=== PATIENT | female | born 1955 | race Caucasian/White ===

== ENCOUNTER 2016-09-30 06:31 | Day surgery (SDC) | payer MEDICARE, BC ==
[2016-09-29 16:43] LABS: BASOPHILS 0.4 % (0.0-2.0); EOSINOPHILS 3.1 % (0-7); HEMATOCRIT 29.1 % (36.0-48.0); HEMOGLOBIN 9.2 g/dL (12-16); IMMATURE GRANULOCYTES 0.1 % (0-5); LYMPHOCYTES 25.2 % (15-50); MCH 29.5 pg (26.0-34.0); MCHC 31.6 g/dL (31.0-37.0); MCV 93.3 fL (80.0-100.0); MEAN PLATELET VOLUME 11.5 fL (7.4-10.4); MONOCYTES 7.2 % (2-11); PLATELET COUNT 210 10x3/uL (130-400); RBC 3.12 10x6/uL (4.00-5.40); RDW 14.5 % (11.5-14.5); WBC 7.2 10x3/uL (4.8-10.8)
[2016-09-29 16:58] LABS: ANION GAP 16.5 mmol/L (8-16); APTT 24.1 SECONDS (22.8-39.4); CALCIUM 7.6 mg/dL (8.5-10.1); CARBON DIOXIDE 25.4 mmol/L (21.0-32.0); CREATININE - SERUM 5.2 mg/dL (0.6-1.3); INR 1.02 (0.85-1.17); POTASSIUM - SERUM 4.9 mmol/L (3.5-5.1); PROTIME 13.2 SECONDS (11.6-15.0)
[~2016-09-30] VITALS: Ht 177.8 cm; Wt 116.6 kg
[~2016-09-30 06:31] MED LIST: ASPIRIN EC81 M1 PO; COREG6.25 MG PO; COUMADIN5 MG PO; FUROSEMIDE40 MG PO; HUMALOG 30100 UNITS/ SC; HYDRALAZINE HCL25 MG PO; ISOSORBIDE MONO30 M1 PO; KLONOPIN1 MG PO; LANTUS INSULIN10 ML SC; LYRICA75 MG PO; REQUIP0.5 MG PO
[2016-09-30 06:56] VITALS: BP 154/69; Ht 177.8 cm; Wt 116.6 kg
--- NOTE | 2016-09-30 07:13 | NUR ---
0700-CHRIS TALLEY CRNA, DR. Tamara SEVERINO NOTIFIED OF BLOOD SUGAR READING, NO NEW ORDERS RECEIVED.
--- NOTE | 2016-09-30 13:45 | NUR ---
DISCHARGE INSTRUCTIONS GIVEN, VOICED UNDERSTANDING. NO RX GIVEN. DR CEBALLOS STATES MAY USE TRAMADOL SHE HAS AT HOME. PATIENT DENIES PAIN. DISCHARGED HOME VIA WC.
--- NOTE | 2016-10-07 13:07 | OP ---
PATIENT NAME: MONE VOGEL MEDICAL RECORD: [id number] :59 LOCATION:[facility] ADMISSION DATE: SURGEON: BROWN CEBALLOS MD DATE OF OPERATION: 09/30/2016 REFERRING PHYSICIAN: Dr. Jameson Field PREOPERATIVE DIAGNOSIS: Chronic kidney disease V. 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 OPERATION PERFORMED: Exploration of left brachial artery in preparation for left forearm looped AV graft with a finding of severe disease of the left brachial artery treated by open endarterectomy the brachial artery and operation at that point terminated. SURGEON: Brown Ceballos MD ANESTHESIA: General with LMA per DIRECTOR TELECOMMUNICATIONS. PREOPERATIVE NOTE: Ms. Vogel is a 61-year-old diabetic white female patient with severe renal impairment, it is anticipated she will require dialysis soon and she was referred to me for dialysis access creation. Her preoperative mapping study indicated that she would be possibly a candidate for a left radiocephalic AV fistula, though I received information from Dr. Field that he anticipate she will be needing dialysis in a month or so and that he would prefer an AV graft implantation at least over a marginal fistula. With the patient under anesthesia, she was prepped and draped in sterile manner and the left arm examined with ultrasound after applying a proximal venous tourniquet and applying topical nitroglycerin ointment. Really, the patient's veins were much smaller than I had anticipated. I did not think she was a candidate for a distal fistula, but there was a good median cubital vein and I thought brachial artery and that she would be a candidate for a forearm loop PTFE graft. I made a transverse incision and dissected the median cubital vein and divided the perforating vein between 3-0 Vicryl ties and clips and controlled vessel with Silastic loops and I applied topical papaverine. The brachial artery was then exposed and dissected from the surrounding structures. It was controlled with Silastic loops proximally and the proximal radial artery and proximal ulnar artery were controlled individually with Silastic loops. There was a more intense than usual inflammatory reaction with adhesion to the brachial artery, which made the dissection more difficult. 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 I found that there was a collateral arterial flow to the radial artery and ulnar artery, both even with this section os the brachial artery and proximal ulnar and radial artery was occluded. I went on to complete an endarterectomy of the brachial artery over a length of about an inch involving both the proximal radial and ulnar arteries. The arteriotomy was closed directly with a running 7-0 Prolene without the use of a patch and the completion of the closure and release of the occluding loops, some flow actually was restored through the previously occluded brachial artery and into the radial artery. This was detected with handheld Doppler. The radial and ulnar arteries at the wrist were again examined and OPERATIVE REPORT [id number] MONE VOGEL found to have pulsatile Doppler flow and the hand was pink and showed no evidence of arterial insufficiency. At this point, I decided to terminate the procedure and I think that we will need to know her vascular anatomy much better in order to plan an upper extremity dialysis access creation, which will not endanger blood flow to either hand. The wound was infiltrated with 0.25% Marcaine with epinephrine and closed with interrupted inverted 3-0 Vicryl and running intracuticular 4-0 Monocryl. It was then sealed and further closed with Dermabond glue and dressed with Maxorb Ag, Tegaderm and Cavilon skin prep. She was awakened and taken to the recovery room in stable condition. Blood loss during the procedure was trivial and unreplaced and all sponges, instruments, and needles were accounted for and no drain was used. She will be discharged today and return to see me in my office next week. I will inform Dr. Field of our findings today and my recommendation that we go ahead and plan for her to begin on dialysis with a tunneled dialysis catheter and after that, she have bilateral upper extremity arteriograms to help with planning her long-term access. TRANSINT:[id number] Voice Confirmation ID: [id number] DOCUMENT ID: [id number] BROWN CEBALLOS MD at 1307 CC: JAMESON FIELD MD [id number] DICTATION DATE: 09/30/16 1150 ENVELOPE PRESS OPERATOR: 09/30/16 1302 [facility] 09/30/16 [facility] [address] [place] [address]
== END 2016-09-30 13:45 | disposition home or self-care (01) ==
LOC: D.OPS 06:31 → D.PAN 08:00 → D.OPS 13:45
PROVIDERS: Internal Medicine
DX: E11.22 Type 2 diabetes mellitus with diabetic chronic kidney disease (principal); N18.5 Chronic kidney disease, stage 5; Z99.2 Dependence on renal dialysis; I70.208 Unspecified atherosclerosis of native arteries of extremities, other extremity

== ENCOUNTER 2016-12-16 06:44 | Day surgery (SDC) | payer MEDICARE, BC ==
[~2016-12-16] VITALS: Ht 179.1 cm; Wt 67.1 kg
[2016-12-16 07:18] LABS: BASOPHILS 0.5 % (0.0-2.0); EOSINOPHILS 3.2 % (0-7); HEMATOCRIT 36.4 % (36.0-48.0); HEMOGLOBIN 11.4 g/dL (12-16); LYMPHOCYTES 12.7 % (15-50); MCH 30.2 pg (26.0-34.0); MCHC 31.3 g/dL (31.0-37.0); MCV 96.3 fL (80.0-100.0); MEAN PLATELET VOLUME 12.3 fL (7.4-10.4); MONOCYTES 9.6 % (2-11); RBC 3.78 10x6/uL (4.00-5.40); RDW 17.1 % (11.5-14.5); WBC 5.6 10x3/uL (4.8-10.8)
[2016-12-16 07:22] LABS: PLATELET COUNT 149 10x3/uL (130-400)
[2016-12-16 07:31] LABS: ANION GAP 12.2 mmol/L (8-16); CALCIUM 8.7 mg/dL (8.5-10.1); CARBON DIOXIDE 27.3 mmol/L (21.0-32.0); CREATININE - SERUM 3.5 mg/dL (0.6-1.3); POTASSIUM - SERUM 4.5 mmol/L (3.5-5.1)
[2016-12-16 07:32] LABS: APTT 24.8 SECONDS (22.8-39.4); INR 1.06 (0.85-1.17); PROTIME 13.6 SECONDS (11.6-15.0)
[2016-12-16] MEDS ORDERED: ZOCOR40 MG PO (07:47)
[2016-12-16 07:52] VITALS: BP 140/87; Ht 179.1 cm; Wt 67.1 kg
--- NOTE | 2016-12-16 08:09 | NUR ---
HAS DEXCOM METER TOOK OWN SUGAR AND TREATED WITH 3 UNITS AT 0700 AND ANESTHESIA AWARE.
[2016-12-16] MEDS ORDERED: ULTRAM50 MG PO (11:47)
--- NOTE | 2016-12-25 07:35 | OP ---
PATIENT NAME: MONE VOGEL MEDICAL RECORD: [id number] :59 LOCATION:[facility] ADMISSION DATE: SURGEON: BROWN CEBALLOS MD DATE OF OPERATION: 12/16/2016 PREOPERATIVE DIAGNOSIS: End-stage renal on hemodialysis, the right internal jugular vein tunneled dialysis catheter and recent failed left arm fistula creation attempt. POSTOPERATIVE DIAGNOSIS: End-stage renal on hemodialysis, the right internal jugular vein tunneled dialysis catheter and recent failed left arm fistula creation attempt. OPERATION PERFORMED: Creation of a right brachiocephalic Sury type AV fistula. SURGEON: Brown Ceballos MD. ANESTHESIA: Regional block plus general with an LMA per [place]ER [place]. PREOPERATIVE NOTE: Ms. Vogel is a 61-year-old white female patient with end-stage renal disease, who has had a failed attempt at creation of a left upper extremity fistula. She is on dialysis now with a catheter and is brought to the operating room now for a new fistula creation versus graft implantation in the right upper extremity. DESCRIPTION OF PROCEDURE: Under anesthesia and after a nerve block was administered and very significant vasodilatation achieved, the patient was prepped and draped in a sterile manner. A Eloise drain was applied proximally as a venous tourniquet and nitroglycerin paste was applied to the intact skin of the arm and forearm. The arm was examined with ultrasound and found to have a very suitable brachial artery and a large median cubital vein draining both to the basilic and to the cephalic systems with the predominant drainage appearing to be to the cephalic side. A transverse incision was then made and the vessels exposed and controlled with Silastic loops. The cephalic branch of the cephalic median cubital vein was divided near the venous confluence and ligated there with 2-0 Vicryl. It was flushed with heparinized saline and treated with topical papaverine and prepared for anastomosis. The brachial artery was controlled proximally and distally with Silastic loops. An arteriotomy was made approximately 6 mm in length. The vessels flushed proximally and distally with heparinized saline and an end-to-side vein to artery anastomosis performed with running 6-0 Prolene. Upon completion of the anastomosis and release of the occluding loops and clamps, excellent flow was established in the new fistula and the suture line was hemostatic. The wounds were irrigated with Ancef and gentamicin solution, irrigated and infiltrated with 0.25% Marcaine with epinephrine and the wound was closed with interrupted inverted 3-0 Vicryl and running intracuticular 4-0 Monocryl and Dermabond glue. This incision was dressed with Maxorb AG, Cavilon and Tegaderm. The patient was then awakened and taken to the recovery room. Blood loss during the procedure was trivial and unreplaced and all sponges, instruments and needles were accounted for. No drain was used. Note, Doppler examination after the anastomosis was completed and demonstrated preservation of pulsatile flow in the distal brachial artery with and without fistula occlusion. OPERATIVE REPORT [id number] MONE VOGEL The patient will be discharged to home today and will return to see me in the office next week. She is given a prescription for tramadol 50 one or 2 p.o. q.4 hours p.r.n. pain, #30. I will see her back in my office next week and change her dressing. She will continue her present dialysis via catheter. Hopefully, her new fistula will be able to be accessed in 6-8 weeks. TRANSINT:[id number] Voice Confirmation ID: [id number] DOCUMENT ID: [id number] BROWN CEBALLOS MD at 0735 CC: EBENEZER RAMIREZ MD [id number] DICTATION DATE: 12/16/16 1157 WET MILLING WHEEL OPERATOR: 12/16/16 1413 [facility] 12/16/16 [facility] [address] [place] [address]
== END 2016-12-16 14:05 | disposition home or self-care (01) ==
LOC: D.OPS 06:44
PROVIDERS: Surgery
DX: I12.0 Hypertensive chronic kidney disease with stage 5 chronic kidney disease or end stage renal disease (principal); N18.6 End stage renal disease; Z99.2 Dependence on renal dialysis

== ENCOUNTER 2017-02-17 06:38 | Day surgery (SDC) | payer MEDICARE, BC ==
[~2017-02-17] VITALS: Ht 179.1 cm; Wt 113.9 kg
[~2017-02-17 06:38] MED LIST changes: +ULTRAM50 MG PO; +ZOCOR40 MG PO
[2017-02-17 07:27] LABS: ANION GAP 16.4 mmol/L (8-16); CALCIUM 10.3 mg/dL (8.5-10.1); CREATININE - SERUM 4.5 mg/dL (0.6-1.3); POTASSIUM - SERUM 4.4 mmol/L (3.5-5.1)
[2017-02-17 07:40] LABS: INR 0.98 (0.85-1.17); PROTIME 12.8 SECONDS (11.6-15.0)
[2017-02-17 08:11] VITALS: BP 127/60; Ht 179.1 cm; Wt 113.9 kg
[2017-02-17 08:54] LABS: BASOPHILS 0.5 % (0-2); EOSINOPHILS 2.7 % (0-7); HEMATOCRIT 38.5 % (36.0-48.0); HEMOGLOBIN 12.4 g/dL (12-16); IMMATURE GRANULOCYTES 0.1 % (0-5); LYMPHOCYTES 18.9 % (15-50); MCH 31.9 pg (26.0-34.0); MCHC 32.2 g/dL (31.0-37.0); MEAN PLATELET VOLUME 12.3 fL (7.4-10.4); MONOCYTES 8.5 % (2-11); NEUTROPHILS 69.3 % (40-80); PLATELET COUNT 147 10x3/uL (130-400); RBC 3.89 10x6/uL (4.00-5.40); RDW 17.5 % (11.5-14.5); WBC 7.8 10x3/uL (4.8-10.8)
--- NOTE | 2017-02-17 11:20 | NUR ---
ARMS PADDED AND TUCKED FOR PD CATH, THEN LEFT ARM PLACED ON ARMBOARD FOR AV FISTULA GRAFT, ANDRÉS.
[2017-02-17] MEDS ORDERED: HYDROCODON-ACE1 EAC7 PO (14:08)
--- NOTE | 2017-02-17 15:26 | NUR ---
1526--PT RATES PAIN 12/26, NORCO 5/325MG GIVEN PO. HGRAVES RN
--- NOTE | 2017-02-17 15:52 | NUR ---
1600--DISCHARGE INSTRUCTIONS GIVEN, PT VERBALIZES UNDERSTANDING. PT OFF UNIT VIA SCARLET. JARROD DELGADILLO
--- NOTE | 2017-02-17 15:52 | NUR ---
1550--PT STATES PAIN IS BETTER, RATES PAIN 3-10. IV DC'D, PT UP TO DRESS. HGRAYAMILETH RN
--- NOTE | 2017-02-18 10:42 | OP ---
PATIENT NAME: MONE HUSSEIN MEDICAL RECORD: [id number] :59 LOCATION:D.[facility] ADMISSION DATE: SURGEON: BROWN CEBALLOS MD DATE OF OPERATION: 02/17/2017 DATE OF SURGERY: 02/17/2017 REFERRING PHYSICIAN: Dr. Jameson Field. PREOPERATIVE DIAGNOSIS: End-stage renal disease, independence on tunneled central venous catheter for dialysis access and failed attempts at prior AV fistula creation. PREOPERATIVE NOTE: This very nice but super obese 61-year-old white female patient with brittle diabetes has end-stage renal disease and is presently dialyzing with a catheter. She has had an attempt at creation of an AV fistula in the left arm, which led to the discovery of a chronic occlusion of the brachial artery and a brachial artery saphenous vein graft to restore continuity of the artery and no fistula was created at that time, later an attempted brachiobasilic fistula on the right failed. She is brought to the operating room at this time with plans to do a laparoscopy to implant a peritoneal dialysis catheter and also to implant a PTFE AV graft in the right arm. PROCEDURE IN DETAIL: With the patient under general endotracheal anesthesia in supine position, the abdomen was prepped and draped in sterile manner. A site for catheter exit had been marked by peritoneal dialysis nurses that was high in the left upper quadrant. The abdomen was accessed with a XL Optiview port with a 5-mm 0-degree scope in place through a small incision in the right upper quadrant. Pneumoperitoneum was established and a 30-degree angle scope was used thereafter. An incision was made in the left upper quadrant and carried down to the rectus sheath. A needle was then inserted through the rectus sheath into the abdominal cavity probably with laparoscopic visualization, a guidewire was passed and then a dilator peel-away introducer. After that, a left-sided Adams neck dual cuff coil peritoneal dialysis catheter was inserted. The coil catheter does not reach all the way down into the pelvis, but seemed to be in good position. There was really no omentum in the lower abdomen, just multiple loops of small bowel and mesentery with which the catheter might become clogged. The catheter was placed in a subcutaneous tunnel to an exit site in the left upper quadrant. The catheter was flushed with saline and noted to flush easily. It was then heparin locked and clamped and capped. The abdomen was examined again to rule out any perforations or bleeding or other complications, none found. The laparoscope and the 5-mm port in the right upper quadrant were removed. The transverse incision in the left upper quadrant was irrigated and infiltrated with 0.25% Marcaine, closed with interrupted inverted 3-0 Vicryl and running intracuticular 4-0 Monocryl and then sealed with Dermabond glue. The laparoscopic port site in the right upper quadrant was sutured with 1 interrupted inverted subcuticular 3-0 Vicryl suture. I then sealed with Dermabond glue. These sites were then dressed with Maxorb Ag, Cavilon and Tegaderm skin prep. The peritoneal dialysis catheter was fixed to the skin at the exit site with two 1/4 inch Steri-Strips after Cavilon skin prep and then applied to the surrounding skin. A Biopatch was then applied and over that, a further sterile dry dressing. The patient was then completely reprepped and draped for the right arm AV graft procedure. OPERATIVE REPORT [id number] MONE HUSSEIN The patient was examined with ultrasound and I confirmed that other than the proximal basilic vein and the brachial artery and the distal humeral area, there are really no other suitable sites for graft. The patient's brachiocephalic AV fistula was completely thrombosed and she had extensive ecchymoses from attempts on Monday of this week to reopen it. The artery was exposed through an incision above the antecubital space and the proximal basilic vein was exposed through a longitudinal incision in the upper arm just lateral to the axilla. The basilic vein was exposed and controlled with Silastic loops. The brachial artery was also controlled with Silastic loops. I chose a 4 mm to 7 mm taper Bard Propaten PTFE graft, beveled the 4 mm end and then opened the brachial artery and flushed it proximally and distally with heparinized saline and then the anastomosis was performed with running 6-0 Prolene. When complete, the anastomosis was treated with Evicel and also some fibrillar hemostatic material was utilized and with reopening of the artery, the suture line was hemostatic. The graft and artery were again then flushed with heparinized saline and the graft clamped. A subcutaneous tunnel was then created with the Impra tunneler between the axilla and the antecubital or distal arm incision. This tunnel was placed as close to the undersurface of the skin as possible. The graft was then pulled through the tunnel, shortened, beveled and anastomosed end-to-side to the proximal basilic vein with continuous running 6-0 Prolene. Again, the anastomosis was treated with Evicel prior to loosening of clamps and loops. Excellent flow was established in the new graft and there was preservation of good pulsatile flow in the radial and ulnar arteries at the wrist. The wounds were infiltrated and irrigated with 0.25% Marcaine with epinephrine and closed with interrupted inverted 3-0 Vicryl and running intracuticular 4-0 Monocryl and Dermabond glue. They were dressed with Maxorb Ag, Tegaderm and Cavilon skin prep. The patient was then awakened and extubated and taken to the recovery room. Blood loss during the operation was almost none, certainly none was replaced. All sponges, instruments and needles were accounted for. No drain was used and no surgical specimen was submitted for histopathology. I expect the patient will go home today. She is to follow up with me in my office next week and she will need an appointment with peritoneal dialysis nurses at [facility] or the [facility] unit for her initial catheter flush. I anticipate that her new AV graft could be accessed in about 2 weeks and I had recommended that initially it may be accessed with a smaller gauge, 17-gauge needles and then when that graft has demonstrated itself to be a reliable access, her tunneled dialysis catheter should be removed. The abdomen will need a little longer to heal. I would not like her to begin full volume exchanges of peritoneal dialysis before at least 2 weeks, probably 3-4. TRANSINT:[id number] Voice Confirmation ID: [id number] DOCUMENT ID: [id number] BROWN CEBALLOS MD at 1042 CC: JAMESON FIELD MD [id number] DICTATION DATE: 02/17/17 1427 CASTING OPERATOR: 02/17/173 [facility] 02/17/17 [place] [id number]
== END 2017-02-17 16:00 | disposition home or self-care (01) ==
LOC: D.OPS 06:38
PROVIDERS: Surgery
DX: E10.22 Type 1 diabetes mellitus with diabetic chronic kidney disease (principal); N18.6 End stage renal disease; Z99.2 Dependence on renal dialysis; I77.9 Disorder of arteries and arterioles, unspecified; E66.01 Morbid (severe) obesity due to excess calories; Z68.35 Body mass index [BMI] 35.0-35.9, adult

== ENCOUNTER 2020-03-19 20:23 | Inpatient (IN) | payer MEDICARE, BC ==
[~2020-03-19] VITALS: Ht 179.1 cm; Wt 128.4 kg
--- NOTE | ~2020-03-19 | RHP ---
PATIENT: MONE HUSSEIN MEDICAL RECORD: [id number] ACCOUNT: [id number] LOCATION:[facility]RIC[facility] [id number] : 59 ADMISSION DATE: 03/19/20 REHABILITATION HISTORY AND PHYSICAL EXAMINATION POST ADMISSION PHYSICIAN EXAMINATION ADMITTING DIAGNOSIS: Uremic myopathy. HISTORY OF PRESENT ILLNESS: The patient is a 64-year-old female that presented to the [facility] hospital with a week long history of edema and redness to her lower extremity. She was seen in outpatient clinic prior to this and started on doxycycline. Her cellulitis and edema worsened. She had weeping from this thing. She was admitted to the [facility] hospital for cellulitis of the right lower extremity with anasarca and uncontrolled diabetes. She has got end-stage renal disease, on peritoneal dialysis. She was placed on IV antibiotics. Her white count did trend down. Her Doppler showed no evidence of acute DVT. The patient did have an arteriogram, which showed a hematoma in the popliteal fossa and it was concerned for infection. The hematoma was evacuated at bedside by general surgeon. The patient was seen and followed by pulmonary. She has got vasovagal syncope after getting up off the commode. She actually had a code blue called. She remained hypotensive after this. She had ABGs. She showed metabolic and respiratory acidosis and was transferred onto the ICU for shock. She has been followed by nephrology. She has had PD fluid concentration change during her stay. She is seen by infectious disease for worsening cellulitis. The patient has been followed by Dr. Owens during her acute stay for wound care. She has had prolonged hospital stay. She had been seeing physical and occupational therapy throughout her stay. She needs to be monitored closely for peritoneal dialysis wound healing due to cellulitis. Monitor intake and output. She is on antibiotics for cellulitis, medication adjustments, pain control, electrolyte protocol, impaired mobility, decreased strength, gait disturbance, limited safety awareness. She is a medical complexity for risk for falls. She has unsteady gait and balance. She has got inability to care for herself and self-care deficits. These are all barriers to her discharge home. Lives at home with her spouse and was independent with ADLs and mobility using a quad cane. She is currently set up for max assist for ADLs and mod to max assist for mobility. She would like to return home as close to her prior level of functioning as possible. COMORBIDITIES: Include cellulitis, she has got Serratia marcescens of her right lower extremity. She has got a right popliteal fossa hematoma, neuropathy, hemorrhagic shock, low albumin, diabetes that is uncontrolled, end-stage renal disease, morbid obesity, hyponatremia, neuropathy. She has got a history of physical deconditioning, venous insufficiency and atrial fib. PAST MEDICAL HISTORY: Significant for anxiety, arterial occlusion, atrial fib and flutter, chronic renal insufficiency, depression, diabetes, hypertension, reflux, back problems, restless legs. PAST SURGICAL HISTORY: Includes a cardioversion. She has had ankle fracture, appendectomy, cholecystectomy, hysterectomy, I&D. She has had spinal surgery. She has had a CV cath in the past, hemodialysis. She has got hardware removal per Dr. Eli. ALLERGIES: LEVAQUIN, PRILOSEC, SULFA AND TERRAMYCIN. HISTORY AND PHYSICAL [id number] MONE HUSSEIN CURRENT MEDICATIONS: Include calcium carbonate 750 mg t.i.d. with meals, nystatin t.i.d., Calmoseptine to apply b.i.d. p.r.n., Protonix 40 mg b.i.d. She is on Humulin R 15 units twice daily. She is on peritoneal dialysis. She is on regular insulin 30 units IV every 12 hours. She is on Klonopin 1 mg at bedtime, Lyrica 75 mg at bedtime, Requip 0.5 mg at bedtime, tramadol p.r.n. pain. She is on glucose replacement protocol. She is on Lantus 25 units at bedtime. She is on Humalog sliding scale. She is on Zofran 4 mg every 6 hours p.r.n. and Eliquis 2.5 mg b.i.d. I also restarted some of her home meds, which include carvedilol, hydralazine and isosorbide. HABITS: No alcohol or tobacco use. FAMILY HISTORY: Noncontributory. SOCIAL HISTORY: The patient hopes to return back home and get back to her prior level of functioning. REVIEW OF SYSTEMS: GENERAL: Does complain of weakness and fatigue. HEENT: Denies cold, cough, or congestion. CARDIOVASCULAR: Denies any chest pain. PHYSICAL EXAMINATION: VITAL SIGNS: Stable, afebrile. GENERAL: A somewhat obese female in no acute distress upon exam. HEENT: Normocephalic and atraumatic. Mucosa moist. NECK: Supple. No lymphadenopathy. LUNGS: Clear in upper patel. HEART: Irregular rate and rhythm. ABDOMEN: Soft, benign, and nondistended. Positive bowel sounds times 4. EXTREMITIES: Does show some edema and also cellulitis. NEUROLOGIC: She does have proximal muscle weakness. LABORATORY DATA: White count is 11,000, H&H of 9.7 and 31.4 and platelet count is 205. Sodium 129, potassium 3.7, BUN and creatinine of 35 and 11, and blood sugar is noted to be 102. 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 The patient has potential to make improvement. We instituted the following multidisciplinary therapies including to, but not limited to physical, occupational, respiratory, speech, nutritional services, prosthetics and orthotics. Given her complex medical condition and risk for further medical complications, rehabilitative services cannot be provided at a low level of care such as halfway facility. PLAN: 1. Admit to [facility] for intensive inpatient therapy to include the following disciplines; A. Physical therapy to improve gait, all transfer skills and bed mobility to a modified independent level. B. Occupational therapy to improve activities of daily living. C. Case management to help with discharge planning and placement options. D. Nutrition to assist with nutritional needs. E. Rehabilitation nursing to assist in monitoring the patient's underlying HISTORY AND PHYSICAL [id number] KEENANMONE YAIMA GROVES medical conditions and to assist with any type of bowel or bladder management. 2. The patient's current medication and medical care will be continued. 3. The patient will be placed on standard fall precautions. 4. The patient's estimated length of stay is approximately 7-10 days. 5. We will discuss this patient during care team staff meeting this week. I am going to adjust her insulin dosage during her stay and appreciate renal seeing her with this during her stay and taking care of her peritoneal dialysis. TRANSINT:[id number] Voice Confirmation ID: [id number] DOCUMENT ID: [id number] SANG notes whether there has been none or any medical/functional change since admission: - No change since preadmission screen. SANG attests patient continues to be appropriate for IRF: - Continues to be appropriate. DEE DEE LEMONS MD CC: [id number] DICTATION DATE: 03/20/20 0950 WOOD TYPE FINISHER: 03/20/20 1126 ADM IN [place] [id number] [place] [id number]
[~2020-03-19 20:23] MED LIST changes: +HYDROCODON-ACE1 EAC7 PO
[2020-03-19 21:45] VITALS: BP 115/52
[2020-03-20 01:11] VITALS: BP 115/52; BMI 39.4
--- NOTE | 2020-03-20 02:59 | NUR ---
PT ARRIVED AT [address] [facility], TRANSFERED FROM STRETCHER TO BED BY 2 EMS AND 3 NURSES,ACCLIMATED TO ROOM AND STAFF, TV/CALL LIGHT, ROOM, PT IS ANURIC, EXTREME EXCORIATION ON BUTTOCKS/COCCYX WET/RED/PAINFUL, UNSTAGABLE WOUND RIGHT POSTERIOR CALF 7.5 X 2 X 1CM, RIGHT HEEL RED/BLANCHABLE, LEFT HEEL RED/BOGGY/FLUID FILLED. LEFT UPPER ABDOMEN PERITONEAL ACCESS
--- NOTE | 2020-03-20 03:33 | NUR ---
PT DIALYSIS DRAINED 1999, TOOK ON 1999 FINISHED AT 0115
[2020-03-20 05:29] LABS: BASOPHILS 0.2 % (0-2); EOSINOPHILS 4.5 % (0-7); HEMATOCRIT 31.4 % (36.0-48.0); HEMOGLOBIN 9.7 g/dL (12-16); IMMATURE GRANULOCYTES 0.5 % (0-5); MCH 30.3 pg (26.0-34.0); MCHC 30.9 g/dL (31.0-37.0); MCV 98.1 fL (80.0-100.0); MEAN PLATELET VOLUME 11.8 fL (7.4-10.4); NEUTROPHILS 71.8 % (40-80); RDW 16.8 % (11.5-14.5)
[2020-03-20 05:41] LABS: PLATELET COUNT 205 10x3/uL (130-400)
[2020-03-20 05:43] LABS: ANION GAP 8.3 mmol/L (8-16); CALCIUM 8.2 mg/dL (8.5-10.1); CARBON DIOXIDE 29.4 mmol/L (21.0-32.0); POTASSIUM - SERUM 3.7 mmol/L (3.5-5.1)
--- NOTE | 2020-03-20 08:00 | NUR ---
UP IN BED EATING BREAKFAST, DENIES ANY NEEDS AT THIS TIME, C/L AND FLUIDS IN REACH.
[2020-03-20 08:15] VITALS: BP 121/43
[2020-03-20] MEDS ORDERED: DARBEPOETIN ALFA SQ (08:37)
[2020-03-20] MEDS ORDERED: ROCALTROL0.5 MCG PO (08:38)
[2020-03-20] MEDS ORDERED: BAYER CHEWABLE81 MG PO (08:39)
--- NOTE | 2020-03-20 12:00 | NUR ---
SITTING UP ON RIGHT SIDE EATING LUNCH, DENIES ANY NEEDS AT THIS TIME, C/L AND FLUIDS IN REACH.
[2020-03-20 12:23] VITALS: BP 116/66
[2020-03-20 12:24] VITALS: Ht 179.1 cm; Wt 128.4 kg
[2020-03-20 14:40] VITALS: BP 98/48
--- NOTE | 2020-03-20 16:10 | NUR ---
RESTING IN BED WITH EYES CLOSED, NO S/S OF DISTRESS NOTED, RESP EVEN AND UNLABORED, C/L AND FLUIDS IN REACH.
--- NOTE | 2020-03-20 17:32 | NUR ---
PATIENT DIALYSIS DRAINED OUT 1700 AND TOOK IN 1999 PD.
[2020-03-20 18:09] VITALS: BP 89/47
--- NOTE | 2020-03-20 20:38 | NUR ---
TURNED PT TO RT SIDE, FLUIDS/CALL LIGHT WITHIN REACH, NO NEEDS NOTED
[2020-03-21 00:14] VITALS: BP 93/29
[2020-03-21 06:13] VITALS: BP 113/48
--- NOTE | 2020-03-21 08:00 | NUR ---
SITTING UP IN BED EATING BREAKFAST, DENIES ANY NEEDS AT THIS TIME, C/L AND FLUIDS IN REACH.
--- NOTE | 2020-03-21 10:07 | NUR ---
ASSESSMENT COMPLETE, DENIES ANY OTHER NEEDS AT THIS TIME, C/L AND FLUIDS IN REACH.
--- NOTE | 2020-03-21 12:00 | NUR ---
SITTING UP IN BED EATING LUNCH, DENIES ANY NEEDS AT THIS TIME, C/L AND FLUIDS IN REACH.
[2020-03-21 12:26] VITALS: BP 84/33
[2020-03-21 13:27] VITALS: BP 104/41
--- NOTE | 2020-03-21 16:01 | NUR ---
RESTING IN BED WITH EYES CLOSED, NO S/S OF DISTRESS NOTED, RESP EVEN AND UNLABORED, O2 RUNNING AT 2LPM, C/L AND FLUIDS IN REACH.
[2020-03-21 18:22] VITALS: BP 83/41
--- NOTE | 2020-03-21 18:50 | NUR ---
RECEIVED PT LYING IN BED AWAKE. ALERT AND ORIENTED X4. CURRENTLY RECEIVING PD. NO SIGNS OF ACUTE DISTRESS NOTED. RLE DRESSING INTACT. LEFT HEEL FLUID FILLED BLISTER NOTED. RIGHT HEEL RED AND BOGGY. HEELS BRIDGED. BUTTOCKS EXCORIATED CALMOSEPTINE UTILIZED. MARGE AREA REDDENED YEAST CALMOSEPTINE AND NYSTATIN OITMENT UTILIIZED. DENIES ANY NEEDS OR PAIN. CALL LIGHT AND WATER WITHIN REACH. FALL PRECAUTIONS IN PLACE. CPOC
[2020-03-21 20:27] VITALS: BP 92/57
[2020-03-22 00:10] VITALS: BP 108/40
--- NOTE | 2020-03-22 00:20 | NUR ---
PD FLUID DRAIN OUT STARTED
--- NOTE | 2020-03-22 01:00 | NUR ---
2900ML PD FLUID OUT, STARTED INFUSING PD FLUID. PT TOLERATING WELL
--- NOTE | 2020-03-22 01:15 | NUR ---
PD COMPLETE. POSITIONED PT TO LEFT SIDE PROPPED WITH PILLOWS BEHIND BACK, BRIDGED HEELS. PT DENIES ANY OTHER NEEDS. CALL LIGHT WITHIN REACH. FALL PRECAUTIONS IN PLACE. CPOC
--- NOTE | 2020-03-22 03:05 | NUR ---
PT LYING IN BED ON LEFT SIDE EYES CLOSED RESTING COMFORTABLY. RR EVEN AND UNLABORED. CALL LIGHT WITHIN REACH. FALL PRECAUTIONS IN PLACE. CPOC
[2020-03-22 05:26] LABS: BASOPHILS 0.4 % (0-2); EOSINOPHILS 5.9 % (0-7); HEMATOCRIT 31.1 % (36.0-48.0); HEMOGLOBIN 9.5 g/dL (12-16); IMMATURE GRANULOCYTES 0.9 % (0-5); LYMPHOCYTES 14.7 % (15-50); MCH 29.8 pg (26.0-34.0); MCHC 30.5 g/dL (31.0-37.0); MCV 97.5 fL (80.0-100.0); MEAN PLATELET VOLUME 12.4 fL (7.4-10.4); MONOCYTES 13.9 % (2-11); NEUTROPHILS 64.2 % (40-80); PLATELET COUNT 213 10x3/uL (130-400); RBC 3.19 10x6/uL (4.00-5.40); RDW 17.1 % (11.5-14.5)
[2020-03-22 05:27] LABS: WBC 7.6 10x3/uL (4.8-10.8)
[2020-03-22 05:55] LABS: ERYTHROCYTE SEDIMENTATION RATE 14 mm/hr (0-30)
--- NOTE | 2020-03-22 05:55 | NUR ---
STARTED PD FLUID DRAIN
[2020-03-22 06:01] VITALS: BP 100/45
[2020-03-22 06:04] LABS: ALBUMIN 1.2 g/dL (3.4-5.0); ANION GAP 10.6 mmol/L (8-16); BILIRUBIN - TOTAL 0.35 mg/dL (0.2-1.3); C-REACTIVE PROTEIN 15.4 mg/dL (0.0-0.9); CALCIUM 8.1 mg/dL (8.5-10.1); CARBON DIOXIDE 27.5 mmol/L (21.0-32.0); CREATININE - SERUM 10.5 mg/dL (0.6-1.3); PHOSPHOROUS 4.3 mg/dL (2.5-4.9); POTASSIUM - SERUM 4.1 mmol/L (3.5-5.1); PROTEIN - SERUM 4.5 g/dL (6.4-8.2)
--- NOTE | 2020-03-22 06:25 | NUR ---
PD DRAIN CLAMPED, PD SOLUTION 1.5 STARTED
--- NOTE | 2020-03-22 06:44 | NUR ---
PD FININSHED. POSITIONED PT TO RIGHT SIDE. NO SIGNS OF ACUTE DISTRESS NOTED. VS STABLE. CALL LIGHT WITHIN REACH. FALL PRECAUTIONS IN PLACE
--- NOTE | 2020-03-22 07:24 | NUR ---
RESTING IN BED WITH EYES CLOSED, NO S/S OF DISTRESS NOTED, C/L AND FLUIDS IN REACH, RESP EVEN AND UNLABORED, O2 RUNNING AT 2LPM.
[2020-03-22 11:24] VITALS: BP 98/37
--- NOTE | 2020-03-22 12:33 | NUR ---
SITTING UP IN BED EATING LUNCH, DENEIS ANY NEEDS AT THIS TIME, C/L AND FLUIDS IN REACH.
--- NOTE | 2020-03-22 15:57 | NUR ---
RESTING IN BED WITH EYES CLOSED, NO S/S OF DISTRESS NOTED, RESP EVEN AND UNLABORED, C/L AND FLUIDS IN REACH.
[2020-03-22 18:03] VITALS: BP 98/37
--- NOTE | 2020-03-22 19:40 | NUR ---
RECEIVED PT LYING IN BED ON RIGHT SIDE EYES CLOSED RESTING. RR EVEN AND UNLABORED. EASILY AROUSED WITH VERBAL STIMULI. DENIES ANY NEEDS. NO SIGNS OF ACUTE DISTRESS NOTED. CONTINUES ON 2L VIA NC. ENTIRE BUTTOCKS EXCORIATED APPLIED CALMOSEPTINE OVER ENTIRE BUTTOCKS. REPOSITIONED TO LEFT SIDE. CALL LIGHT WITHIN REACH. FALL PRECAUTIONS IN PLACE. CPOC
[2020-03-23 00:15] VITALS: BP 96/30
--- NOTE | 2020-03-23 00:20 | NUR ---
PT LYING IN BED ON LEFT SIDE. PT HYPOTENSIVE 96/30 ELEVATED LEGS PT IS ASYMPTOMATIC. DENIES ANY NEEDS. PD DRAIN STARTED. CALL LIGHT AND WATER WITHIN REACH. FALL PRECAUTIONS IN PLACE. CPOC
--- NOTE | 2020-03-23 01:00 | NUR ---
PT COMPLETED. PT TOLERATED WELL. REPOSITIONED TO RIGHT SIDE. DENIES ANY OTHER NEEDS OR PAIN. WILL CONTINUE TO MONITOR
--- NOTE | 2020-03-23 02:27 | NUR ---
PT LYING IN BED EYES CLOSED RESTING. RR EVEN AND UNLABORED. CALL LIGHT WITHIN REACH. FALL PRECAUTIONS IN PLACE. CPOC
--- NOTE | 2020-03-23 04:30 | NUR ---
PT LYING IN BED ON RIGHT SIDE EYES CLOSED RESTING. RR EVEN AND UNLABORED. CALL LIGHT WITHIN REACH. FALL PRECAUTIONS IN PLACE. CPOC
[2020-03-23 06:14] VITALS: BP 79/44
[2020-03-23 07:31] LABS: BASOPHILS 0.5 % (0-2); EOSINOPHILS 6.7 % (0-7); HEMATOCRIT 31.6 % (36.0-48.0); HEMOGLOBIN 9.6 g/dL (12-16); IMMATURE GRANULOCYTES 0.8 % (0-5); LYMPHOCYTES 14.9 % (15-50); MCH 29.8 pg (26.0-34.0); MCHC 30.4 g/dL (31.0-37.0); MCV 98.1 fL (80.0-100.0); MEAN PLATELET VOLUME 11.8 fL (7.4-10.4); MONOCYTES 15.7 % (2-11); NEUTROPHILS 61.4 % (40-80); PLATELET COUNT 217 10x3/uL (130-400); RBC 3.22 10x6/uL (4.00-5.40); RDW 17.1 % (11.5-14.5); WBC 7.6 10x3/uL (4.8-10.8)
--- NOTE | 2020-03-23 08:00 | NUR ---
PT RESTING IN BED WITH EYES OPEN CALL LIGHT IN REACH WILL MONITER
[2020-03-23 08:03] LABS: ANION GAP 12.2 mmol/L (8-16); CALCIUM 7.7 mg/dL (8.5-10.1); CARBON DIOXIDE 28.7 mmol/L (21.0-32.0); CREATININE - SERUM 10.4 mg/dL (0.6-1.3); PHOSPHOROUS 4.4 mg/dL (2.5-4.9); POTASSIUM - SERUM 3.9 mmol/L (3.5-5.1); THYROID STIMULATING HORMONE 3.29 uIU/mL (0.36-3.74)
[2020-03-23 12:01] VITALS: BP 100/49
--- NOTE | 2020-03-23 12:11 | NUR ---
DUE TO CHANGE IN MEDICAL CONDTIONS PATIENT DISCHARGED FROM REHAB AND ADMITTED TO ACUTE FLOOR.
--- NOTE | 2020-03-23 12:52 | NUR ---
Nutrition Follow-up: Patient is ESRD on PD daily. Per nephrology she is volume overloaded with low ALB and plans to have HD cath placed tomorrow by surgery. Diet: Renal ADA PO intake: ~64% average x last 9 meals; she likes and will drink Nepro with meals. She gave food preferences. Last BM: 03/21/20. WT: 282.4# (03/21/20); Admit WT: 278# Meds noted: Lasix, lantus, SSI, miralax Labs noted: Na 129(L), BUN 34(H), Cr 10.4(H), GFR 4(L), Glu 131(H) Skin: unstageable PU to R calf Recommend continue current diet. Will update food preferences. Will add Nepro with meals. RD following.
[2020-03-23] MEDS ORDERED: LANTUS INS100 UNITS/ SC (13:43)
[2020-03-23] MEDS ORDERED: PROTONIX40 MG PO (13:46)
[2020-03-23] MEDS ORDERED: TUMS X-STR300 MG PO (13:46)
[2020-03-23] MEDS ORDERED: NYSTATIN OINTME15 GM TOPICAL (13:46)
[2020-03-23] MEDS ORDERED: HEPARIN SO1000 UNIT/ IV (13:48)
[2020-03-23] MEDS ORDERED: CALMOSEPTINE OI71 GM TOPICAL (13:49)
[2020-03-23] MEDS ORDERED: LASIX40 MG PO ×2 (13:49→18:12)
[2020-03-23] MEDS ORDERED: ZOFRAN4 MG PO (13:50)
--- NOTE | 2020-03-23 15:29 | NUR ---
PT DISCHARGED TO ACUTE CARE VIA BED REPORT CALLED TO JANETH SNOW. PT TOLERATED WELL
[2020-03-23] MEDS ORDERED: [UNRECOGNIZED DRUG - OTHER] PD (18:09)
[2020-03-23] MEDS ORDERED: [UNRECOGNIZED DRUG - OTHER] PD (18:10)
[2020-03-23] MEDS ORDERED: ELIQUIS2.5 MG PO (18:10)
[2020-03-23] MEDS ORDERED: MIRALAX17 GM PO (18:13)
== END 2020-03-23 15:36 | disposition short-term general hospital (02) | DRG 91 ==
LOC: D.REHAB 20:23
PROVIDERS: Internal Medicine; Internal Medicine Nephrology; ADMIT Emergency Medicine; ATTEND Emergency Medicine
DX: G72.89 Other specified myopathies (principal); N18.6 End stage renal disease; R57.8 Other shock; L03.115 Cellulitis of right lower limb; E87.1 Hypo-osmolality and hyponatremia; I12.0 Hypertensive chronic kidney disease with stage 5 chronic kidney disease or end stage renal disease; R26.9 Unspecified abnormalities of gait and mobility; I48.91 Unspecified atrial fibrillation; E66.01 Morbid (severe) obesity due to excess calories; E11.22 Type 2 diabetes mellitus with diabetic chronic kidney disease; E11.40 Type 2 diabetes mellitus with diabetic neuropathy, unspecified; K21.9 Gastro-esophageal reflux disease without esophagitis; Z68.39 Body mass index [BMI] 39.0-39.9, adult; K29.70 Gastritis, unspecified, without bleeding

== ENCOUNTER 2020-03-23 15:40 | Inpatient (IN) | payer MEDICARE, BC ==
[~2020-03-23] VITALS: Ht 179.1 cm; Wt 125.2 kg
[~2020-03-23 15:40] MED LIST changes: +BAYER CHEWABLE81 MG PO; +CALMOSEPTINE OI71 GM TOPICAL; +DARBEPOETIN ALFA SQ; +HEPARIN SO1000 UNIT/ IV; +LANTUS INS100 UNITS/ SC; +LASIX40 MG PO; +NYSTATIN OINTME15 GM TOPICAL; +PROTONIX40 MG PO; +ROCALTROL0.5 MCG PO; +TUMS X-STR300 MG PO; +ZOFRAN4 MG PO
[2020-03-23 16:50] VITALS: BP 131/103
--- NOTE | 2020-03-23 17:12 | NUR ---
PT SIGNED CONSENTS FOR TRIALYSIS PLACEMENT. DR. HAWTHORNE PLACED RIGHT CHEST TRIALYSIS AT BEDSIDE. DR. PATINO NOTFIED TRIALYSIS WAS PLACED AND SHE STATES DO DO HD 1.5% AT 1800 AND AT 0000 JTO JUST DRAIN PT BUT DO NOT FILL AND PT WILL GO TO HD TOMORROW. SHE ALSO STATES TO GIVE 25MG OF ALBUMIN AND NOT 50MG. I VERBALIZED UNDERSTANDING.
--- NOTE | 2020-03-23 17:22 | NUR ---
DR. HAWTHORNE LOOKED AT XR AND STATES TRIALYSIS IS GOOD TO USE. ALBUMIN GIVEN VIA PURPLE PORT.
[2020-03-23] MEDS ORDERED: [UNRECOGNIZED DRUG - OTHER] PD (18:09)
[2020-03-23] MEDS ORDERED: ELIQUIS2.5 MG PO (18:10)
[2020-03-23] MEDS ORDERED: [UNRECOGNIZED DRUG - OTHER] PD (18:10)
[2020-03-23] MEDS ORDERED: LASIX40 MG PO (18:12)
[2020-03-23] MEDS ORDERED: MIRALAX17 GM PO (18:13)
[2020-03-23 18:18] VITALS: BP 131/103; BMI 39.4
--- NOTE | 2020-03-23 18:40 | NUR ---
SPOKE WITH SHAYAN NARAYAN AND SHE STATES TO DO 1.5% PD NOW AND ADD 2000 UNITS OF HEPARIN. I VEBRALIZED UNDERSTANDING
--- NOTE | 2020-03-23 19:00 | NUR ---
REPORT RECEIVED, WILL CONTINUE POC. PATIENT IS AAOX4 LYING IN SEMI-FOWLERS POSITION. NO S/S OF DISTRESS OBSERVED. RR EVEN AND UNLABORED ON 2L. PATIENT DENIES NEEDS AT THIS TIME. CL IN REACH, BED LOCKED AND LOWERED. WILL CTM.
--- NOTE | 2020-03-23 19:58 | NUR ---
ASSISTED PATIENT OFF OF BED QUEEN. PATIENT HAD LARGE SOFT BM MIXED WITH URINE. PERFORMED PERICARE AND APPLIED REYES. PATIENT BOTTOM AND THIGHS ARE EXTREMELY EXCORIATED. CHANGED BED PAD, REPOSITIONED PATIENT. ROOM PHONE ISN'T WORKING, HAD TO FIND PATIENT ANOTHER PHONE TO USE. CL IN REACH, BED LOCKED AND LOWERED. WILL CTM.
[2020-03-23 20:00] VITALS: BP 131/49
[2020-03-24 04:00] VITALS: BP 128/54
[2020-03-24 04:38] LABS: BASOPHILS 0.4 % (0-2); EOSINOPHILS 4.9 % (0-7); HEMATOCRIT 29.2 % (36.0-48.0); IMMATURE GRANULOCYTES 0.5 % (0-5); LYMPHOCYTES 14.5 % (15-50); MCH 30.1 pg (26.0-34.0); MCHC 30.8 g/dL (31.0-37.0); MCV 97.7 fL (80.0-100.0); MEAN PLATELET VOLUME 12.2 fL (7.4-10.4); MONOCYTES 15.7 % (2-11); PLATELET COUNT 229 10x3/uL (130-400); RBC 2.99 10x6/uL (4.00-5.40); RDW 17.2 % (11.5-14.5); WBC 7.5 10x3/uL (4.8-10.8)
[2020-03-24 05:04] LABS: ALBUMIN 1.6 g/dL (3.4-5.0); ANION GAP 9.2 mmol/L (8-16); CALCIUM 7.5 mg/dL (8.5-10.1); CARBON DIOXIDE 31.1 mmol/L (21.0-32.0); CREATININE - SERUM 10.5 mg/dL (0.6-1.3); PHOSPHOROUS 3.9 mg/dL (2.5-4.9); POTASSIUM - SERUM 4.3 mmol/L (3.5-5.1)
--- NOTE | 2020-03-24 05:43 | NUR ---
PAGING RENAL FOR CRITICALLY HIGH GLUCOSE OF 418
--- NOTE | 2020-03-24 05:57 | NUR ---
RECEIVED CALL BACK FROM DR. PATINO, SHE WILL PUT IN ORDERS FOR PATIENTS HIGH GLUCOSE LEVEL.
--- NOTE | 2020-03-24 06:19 | NUR ---
I have reviewed this patient and I concur with the Shift Assessment completed by the Licensed Practical Nurse today this shift.
--- NOTE | 2020-03-24 06:40 | NUR ---
PATIENTS FREESTYLE JANELL IS INACCURATE ON GLUCOSE LEVELS IT READS 298 WHEN OUR HER LABS SHOWED 418 AND HER FSBS WAS 395. TREATED FOR FSBS 395 24 UNITS ADMINISTERED TO JEANINE DOMÍNGUEZ.
[2020-03-24 09:00] VITALS: BP 114/43
[2020-03-24 11:00] VITALS: BP 122/47
[2020-03-24 13:33] VITALS: Ht 179.1 cm; Wt 125.2 kg
--- NOTE | 2020-03-24 14:57 | NUR ---
NOTIFIED DR. PATINO THAT PATIENT'S NEW DIALYSIS LINE WAS NOT FUNCTIONING, ORDERED ACTIVASE TO DWELL FOR 30 MIN AND TRY AGAIN. PLACED ORDER AND INSTILLED THE ACTIVASE IN BOTH LUMENS OF CATHETER. ALSO CATHETER LINES WERE EMPTY AND NO FLUID IN THEM, ONLY AIR.
--- NOTE | 2020-03-24 15:21 | NUR ---
PT HAS AN INTACT BLISTER ON LEFT HEEL (STAGE 2 PRESSURE INJURY) 3CM X 3CM. RECOMMEND PROTECTING WITH MEPILEX AND KEEPING HEEL FLOATED OFF MATTRESS. RIGHT HEEL IS BOGGY. RECOMMENDED KEEPING HEEL FLOATED. RIGHT CALF HAS A CHRONIC NONHEALING ULCER MEASURING 5CM X 9CM X 1CM. BLACK ESCHAR IS SURROUNDING WOUND. RECOMMENDED ADAPTIC OVER WOUND THEN 4X4S, ABD AND KERLIX. PT IS BEDFAST AND INCONTINENT OF BOWEL AND BLADDER. CALMOSEPTINE CREAM IS BEING APPLIED TO PERINEAL AREA AND BUTTOCKS D/T EXCORIATION RELATED TO MOISTURE. WOUND CARE WILL MONITOR.
--- NOTE | 2020-03-24 18:30 | NUR ---
HEMODIALYSIS TREATMENT COMPLETED, NET FLUID REMOVAL OF 1000ML, BLOOD RETURNED, LINES FLUSHED, ACTIVASE DWELLING, WRAPPED WTIH GUAZE AND TAPE AND LABELED "ACTVASE"
--- NOTE | 2020-03-24 19:17 | NUR ---
REPORT RECEIVED, WILL CONTINUE POC. PATIENT JUST COMING BACK FROM DIALYSIS. PATIENT IS AAXO4, LYING IN SUPINE POSITION. NO S/S OF DISTRESS OBSERVED, RR EVEN AND UNLABORED ON 2L O2 VIA NC. PATIENT DENIES NEEDS AT THIS TIME. CL IN REACH, BED LOCKED AND LOWERED. WILL CTM.
[2020-03-24 20:00] VITALS: BP 128/41
[2020-03-24 20:57] VITALS: BP 128/41
--- NOTE | 2020-03-24 21:23 | NUR ---
ASSISTED PATIENT ON AND OFF THE BEDPAN. PATIENT HAD MED SOFT BM. PERICARE PROVIDED, REYES APPLIED. WILL CTM.
[2020-03-24 23:57] VITALS: BP 125/49
[2020-03-25] VITALS (7 sets, daily range): BP systolic 111–150; BP diastolic 39–58
[2020-03-25 05:09] LABS: BASOPHILS 0.3 % (0-2); EOSINOPHILS 5.5 % (0-7); HEMATOCRIT 31.1 % (36.0-48.0); HEMOGLOBIN 9.5 g/dL (12-16); IMMATURE GRANULOCYTES 0.5 % (0-5); MCH 29.8 pg (26.0-34.0); MCHC 30.5 g/dL (31.0-37.0); MCV 97.5 fL (80.0-100.0); MEAN PLATELET VOLUME 11.7 fL (7.4-10.4); MONOCYTES 17.5 % (2-11); NEUTROPHILS 65.2 % (40-80); PLATELET COUNT 204 10x3/uL (130-400); RBC 3.19 10x6/uL (4.00-5.40); RDW 17.4 % (11.5-14.5); WBC 7.8 10x3/uL (4.8-10.8)
[2020-03-25 05:25] LABS: ANION GAP 9.6 mmol/L (8-16); CALCIUM 7.8 mg/dL (8.5-10.1); CARBON DIOXIDE 28.2 mmol/L (21.0-32.0); CREATININE - SERUM 8.8 mg/dL (0.6-1.3); POTASSIUM - SERUM 3.8 mmol/L (3.5-5.1)
--- NOTE | 2020-03-25 06:27 | NUR ---
ARAMIS WILSON APN TWISTER TENDER PAPER FOR PERMISSION TO USE NURSE PORT ON TRIALYSIS. PERMISSION GIVEN TO INFUSE ALBUMIN THROUGH NURSES PORT.
--- NOTE | 2020-03-25 08:48 | NUR ---
CREATNINE 8.8. CALLED [facility] AND SPOKE WITH LITA AND SHE STATES TO ASK RENAL CHIEF OPERATING ENGINEER MD OR DIALYSIS RN. I VEBRALIZED UNDERSTANDING. CALLED AND SPOKE WITH SHAYAN NARAYAN ABOUT CREATNINE 8.8 BUT YESTERDAY IT WAS 10.5 SHAYAN NARAYAN STATES TO THIS NURSE TO GIVE ELIQUIS 2.5MG BID ORDERED. I VERBALIZED UNDERSTANIDNG.
--- NOTE | 2020-03-25 12:15 | NUR ---
I have reviewed this patient and I concur with the Shift Assessment completed by the Licensed Practical Nurse today this shift.
--- NOTE | 2020-03-25 13:06 | NUR ---
PT STATING SHE "CAN'T FIND HER WORDS" BUT KEEPS SAYING SHE "NEEDS TO GO UP IN BED" AFTER PULLING PT UP AND ADJUSTING HER HOB. STATED THIS TO DR. MUNOZ AND THAT HER MENTAL STATUS HAS CHANGED SINCE PREVIOSULY HAVING THIS PT MONDAY. I ALSO STATED TO HER PT DOES NOT HAVE HD ORDERS FOR TODAY. SHE STATES SHE WILL LOOK AT PT AND PUT IN ORDERS. I VERBALIZED UNDERSTANDING.
--- NOTE | 2020-03-25 14:22 | NUR ---
DR. PATINO STATES TO ME SHE SPOKE WITH PT AND MENTAL STATUS CHANGES IS NORMAL WHEN PT GETS HD SHE STATES PT WILL HAVE HD TODAY AND THEN RESUME PD TOMORROW. I VERBALIZED UNDERSTANDING.
--- NOTE | 2020-03-25 15:25 | NUR ---
DR. PATINO CALLED AND STATES TO ME TO DC ALBUMIN IV AND HD FOR TODAY. SHE STATES PT WILL NOT GO TO HD TODAY AND SHE WILL RESUME PD TOMORROW. SHE ALSO STATES TO ORDER ALBUMIN LAB FOR TOMORROW AM WITH OTHER LAB DRAWS AND THAT TRIALYSIS WILL STAY IN JUST IN CASE PT MAY NEED HD AGAIN. I VERBALIZED UNDERSTANDING. STATED MY CONVERSATION WITH DR. PATINO TO PT AND PT'S VERBALIZED UNDERSTANDING.
--- NOTE | 2020-03-25 19:00 | NUR ---
REPORT RECEIVED, WILL CONTINUE POC. PATIENT IS AAOX4, LYING IN SEMI-FOWLERS POSITION. NO S/S OF DISTRESS OBSERVED, RR EVEN AND UNLABORED ON 3L O2 VIA NC. PATIENT DENIES NEEDS AT THIS TIME. CL IN REACH, BED LOCKED AND LOWERED. WILL CTM.
--- NOTE | 2020-03-26 03:54 | NUR ---
PATIENT INCONTINENT OF URINE. COMPLETE LINEN CHANGE, MARGE CARE, REYES APPLIED TO BUTTOCKS AND THIGHS. BED BATH ADMINISTERED. NEW GOWN. CL IN REACH, BED LOCKED AND LOWERED. WILL CTM.
[2020-03-26 04:00] VITALS: BP 140/56
[2020-03-26 07:41] LABS: ANION GAP 11.2 mmol/L (8-16); CALCIUM 8.4 mg/dL (8.5-10.1); CARBON DIOXIDE 25.7 mmol/L (21.0-32.0); CREATININE - SERUM 10.1 mg/dL (0.6-1.3); POTASSIUM - SERUM 3.9 mmol/L (3.5-5.1)
[2020-03-26 08:28] LABS: BASOPHILS 0.5 % (0-2); EOSINOPHILS 5.8 % (0-7); HEMATOCRIT 28.9 % (36.0-48.0); IMMATURE GRANULOCYTES 1.8 % (0-5); LYMPHOCYTES 11.7 % (15-50); MCH 29.9 pg (26.0-34.0); MCHC 31.1 g/dL (31.0-37.0); MEAN PLATELET VOLUME 11.6 fL (7.4-10.4); MONOCYTES 15.1 % (2-11); NEUTROPHILS 65.1 % (40-80); PLATELET COUNT 201 10x3/uL (130-400); RBC 3.01 10x6/uL (4.00-5.40); RDW 17.2 % (11.5-14.5); WBC 8.5 10x3/uL (4.8-10.8)
[2020-03-26 09:00] VITALS: BP 136/46
--- NOTE | 2020-03-26 09:54 | NUR ---
Nutrition Follow-up: Pt reports eating <50% of breakfast this AM stating she is "just not hungry". Drinking ~3 Nepro/day. Denies N/V/C/D. Noted plans to resume PD today. Diet: Renal ADA, Nepro TID PO intake: 0-50% Wt: 274# (03/26); 280.8# (03/20) Last BM: 03/24 Labs noted: Na 127, K+ 3.9, Glu 199, Ca 8.4, Alb 2.0 Meds noted: Tums, Humulin, Protonix, Miralax, Lantus -Encourage PO intake and honor food preferences within diet restrictions. -Monitor wt; noted daily wts ordered. -RD following.
--- NOTE | 2020-03-26 10:13 | NUR ---
ROAD FREIGHT FIRER GAVE PT A CHG BED BATH.
[2020-03-26 11:00] VITALS: BP 142/52
--- NOTE | 2020-03-26 11:17 | NUR ---
AFTER RECEVING PD PT HAVING MENTAL STATUS CHANGING AND BECOMING CONFUSED AND CAN'T GET WORDS OUT OF WHAT SHE IS TRYING TO SAY. CALLED ROJAS NARAYAN AND SHE SATTES SHE IS GOING TO CALL DR. PATINO AND CALL ME BACK. I VERBALIZED UNDERSTANDING.
--- NOTE | 2020-03-26 11:28 | NUR ---
ROJAS NARAYAN CALLED [facility] AND STATES DR. SAGE WANTS TO OBTAIN PD FLUID CULTURE, GRMA STAIN, AND CELL COUNT AND SHE WILL BE IN TO SEE PT LATER TODAY. I VERBALIZED UNDERSTANDING.
--- NOTE | 2020-03-26 11:30 | NUR ---
ROJAS NARAYAN CALLED BACK AND STATES DR. PATINO WANTS ME TO OBTAIN PD FLUID CULTURE, GRAM STAIN, AND CELL COUNT AND SHE WILL BE IN TO SEE PT LATER TODAY AND TO CONTINUE PD FLUID EXCHANGES.I VERBALIZED UNDERSTANDING.
--- NOTE | 2020-03-26 13:18 | NUR ---
JESSICA DELGADILLO FROM DIALYSIS STATES SHE IS GOING TO REMOVE ACTIVASE FROM TRIALYSIS, FLUSH, AND HEPARIN LOC. I VERBALIZED UNDERSTANDING.
--- NOTE | 2020-03-26 14:06 | NUR ---
RESTS IN BED WITH CALL LIGHT IN REACH. RESP UL ON . NURSE AT BS INITIATING PD AT BS. WILL CONT. PLAN OF CARE.
[2020-03-26 15:00] VITALS: BP 135/43
--- NOTE | 2020-03-26 15:57 | NUR ---
I have reviewed this patient and I concur with the Shift Assessment completed by the Licensed Practical Nurse today this shift.
[2020-03-26 16:13] LABS: MACROPHAGES BF 21 %; NEUT - BF 41 %
--- NOTE | 2020-03-26 19:00 | NUR ---
PT RESTING WITH EYES CLOSED. SHE AROUSES WITH VERBAL STIMULI. SHE IS CONFUSED TO SITUATION AND TIME. REORIENTED HER. VSS. BED IS LOW AND CALL LIGHT WITHIN REACH. BED ALARM ON.
[2020-03-26 21:11] VITALS: BP 103/54
[2020-03-27 00:32] VITALS: BP 130/49
[2020-03-27 04:51] VITALS: BP 150/61
[2020-03-27 09:00] VITALS: BP 105/39
--- NOTE | 2020-03-27 10:15 | NUR ---
PT WANTING TO GET UP AND SIT IN CHAIR. P.T. AND O.T. CONSULTED.
[2020-03-27 11:00] VITALS: BP 144/61
--- NOTE | 2020-03-27 11:29 | NUR ---
PT BRUSHED HER OWN TEETH. ORAL CARE COMPLETED.
--- NOTE | 2020-03-27 12:31 | NUR ---
RESTS IN BED WITH CALL LIGHT IN REACH. RESP UL ON 02 3L NC. AT BS. WILL CONT. PLAN OF CARE.
--- NOTE | 2020-03-27 13:49 | NUR ---
I have reviewed this patient and I concur with the Shift Assessment completed by the Licensed Practical Nurse today this shift.
[2020-03-27 14:03] LABS: % SATURATION 20 % (15-55); IRON 17 ug/dl (35-150); TOTAL IRON BIND CAPACITY 85 ug/dl (260-445); UNSAT IRON BIND CAPACITY 68 ug/dl (150-375)
--- NOTE | 2020-03-27 14:30 | NUR ---
RIGHT LOWER LEG AND HEEL DRESSING CHANGED ORDERED. PD CATH DRESSING CHANGED. PT TOLERATED WELL.
[2020-03-27 15:00] VITALS: BP 158/59
--- NOTE | 2020-03-27 15:15 | NUR ---
DR. MORALES CAME AND ROUNDED IN PT'S ROOM. SHE STATES TO STOP FILLING 2.5% AND TO DRAIN THE 600ML THAT HAS ALREADY BEEN FILLING. SHE STATES SHE WANTS 4.25% NOW AND WE ARE GOING TO START ALTERNATING THE 1.5% AND THE 4.25%. SHE ALSO STATES WITH THE 4.25% BAG WE'LL HAD THE 5,000 UNITS OF HEPARIN AND 30 UNITS OF INSULIN AND WITH THE 2.5% BAG TO ADD 5,000 UNITS OF HEPARIN AND 20 UNITS OF INSULIN. SHE STATES SHE WILL PLACE ORDERS IN THE COMPUTER. I VERBALIZED UNDERSTANDING.
--- NOTE | 2020-03-27 19:17 | NUR ---
IN DIALYSIS AT THIS TIME.
[2020-03-27 20:00] VITALS: BP 156/63
[2020-03-28 04:00] VITALS: BP 144/86
[2020-03-28 04:56] LABS: BASOPHILS 0.5 % (0-2); EOSINOPHILS 5.9 % (0-7); HEMATOCRIT 30.3 % (36.0-48.0); HEMOGLOBIN 9.5 g/dL (12-16); IMMATURE GRANULOCYTES 1.2 % (0-5); LYMPHOCYTES 14.9 % (15-50); MCH 30.1 pg (26.0-34.0); MCHC 31.4 g/dL (31.0-37.0); MCV 95.9 fL (80.0-100.0); MEAN PLATELET VOLUME 11.7 fL (7.4-10.4); MONOCYTES 15.4 % (2-11); NEUTROPHILS 62.1 % (40-80); PLATELET COUNT 194 10x3/uL (130-400); RBC 3.16 10x6/uL (4.00-5.40); WBC 9.2 10x3/uL (4.8-10.8)
[2020-03-28 05:31] LABS: ALBUMIN 1.8 g/dL (3.4-5.0); ANION GAP 13.1 mmol/L (8-16); BILIRUBIN - TOTAL 0.38 mg/dL (0.2-1.3); CALCIUM 8.8 mg/dL (8.5-10.1); CARBON DIOXIDE 26.2 mmol/L (21.0-32.0); CREATININE - SERUM 10.3 mg/dL (0.6-1.3); PHOSPHOROUS 2.9 mg/dL (2.5-4.9)
[2020-03-28 05:32] LABS: POTASSIUM - SERUM 3.3 mmol/L (3.5-5.1)
[2020-03-28 09:00] VITALS: BP 130/61
--- NOTE | 2020-03-28 13:23 | NUR ---
PT HAS BEEN AWAKE AND ORIENTED, LYING IN BED. REFUSES TO GET UP, STATES SHE IS UNABLE. NO COMPLAINTS OR CONCERNS, BED LINNEN CHANGED, PT CLEAN AND DRY. FAMILY AT BEDSIDE. CL IN REACH, SRX2.
--- NOTE | 2020-03-28 19:14 | NUR ---
RECIEVED UP IN BED WITH EYES CLOSED. EASILY AROUSES WITH VERBAL STIMULI. ORIENTED X4. DSG TO BLE AND RT HEEL. PD TO RUQ. TRIALYSIS TO RT CHEST. BUTTOCK SEVERLY EXCORIATED WITH SOME OPEN ANREA. CONT TO TX WITH CALMOSEPTIN. DENIES ANY NEEDS AT THIS TIME.
[2020-03-28 20:28] VITALS: BP 144/55
[2020-03-29 05:00] VITALS: BP 113/50
[2020-03-29 05:32] LABS: BASOPHILS 0.5 % (0-2); EOSINOPHILS 5.3 % (0-7); HEMATOCRIT 28.3 % (36.0-48.0); HEMOGLOBIN 8.8 g/dL (12-16); IMMATURE GRANULOCYTES 1.5 % (0-5); LYMPHOCYTES 10.3 % (15-50); MCHC 31.1 g/dL (31.0-37.0); MCV 96.6 fL (80.0-100.0); MEAN PLATELET VOLUME 11.4 fL (7.4-10.4); MONOCYTES 16.1 % (2-11); NEUTROPHILS 66.3 % (40-80); PLATELET COUNT 165 10x3/uL (130-400); RBC 2.93 10x6/uL (4.00-5.40); RDW 17.4 % (11.5-14.5)
[2020-03-29 05:34] LABS: WBC 11.8 10x3/uL (4.8-10.8)
[2020-03-29 06:12] LABS: ALBUMIN 2.1 g/dL (3.4-5.0); ANION GAP 15.2 mmol/L (8-16); BILIRUBIN - TOTAL 0.33 mg/dL (0.2-1.3); CALCIUM 8.7 mg/dL (8.5-10.1); CARBON DIOXIDE 24.9 mmol/L (21.0-32.0); CREATININE - SERUM 9.8 mg/dL (0.6-1.3); POTASSIUM - SERUM 3.1 mmol/L (3.5-5.1); PROTEIN - SERUM 4.9 g/dL (6.4-8.2)
[2020-03-29 10:06] VITALS: BP 143/58
--- NOTE | 2020-03-29 14:06 | NUR ---
NO 4.25% PD FLUID ON THE FLOOR, SPOKE TO MEDICAL SERVICES MANAGER SHE STATES SHE WILL BRING SOME UP SOON SHE CAN.
--- NOTE | 2020-03-29 14:06 | NUR ---
I have reviewed this patient and I concur with the Shift Assessment completed by the Licensed Practical Nurse today this shift.
--- NOTE | 2020-03-29 14:33 | NUR ---
PT HAS BEEN ALERT AND ORIENTED A TBEDSIDE. NO COMPLAINTS OR CONCERNS AT TIS TIME. ALL QUESTONS ANWERED TOT HE BEST OF MY ABILITY. CL IN REACH,S RX2
[2020-03-29 15:09] LABS: HEMATOCRIT 31.3 % (36.0-48.0); HEMOGLOBIN 9.9 g/dL (12-16); LYMPHOCYTES 10.4 % (15-50); MCH 30.5 pg (26.0-34.0); MCHC 31.6 g/dL (31.0-37.0); MCV 96.3 fL (80.0-100.0); MEAN PLATELET VOLUME 11.4 fL (7.4-10.4); NEUTROPHILS 70.7 % (40-80); PLATELET COUNT 163 10x3/uL (130-400); RBC 3.25 10x6/uL (4.00-5.40); RDW 17.7 % (11.5-14.5); WBC 10.3 10x3/uL (4.8-10.8)
[2020-03-29 18:06] VITALS: BP 159/67
--- NOTE | 2020-03-29 19:38 | NUR ---
RECIEVED UP IN BED WITH EYES CLOSED. EASILY AROUSES WITH VERBAL STIMULI. ORIENTED X4. UP WITH ASSIST AND WALKER. INCONT OF BOWEL AND RARELY URINATED. DRESSING TO RT LOWER EXTREMITY AND LT HEEL. RT HEEL BOGGY. FEET FLOATED ON A PILLOW. DENIES ANY NEEDS AT THIS TIME.
[2020-03-29 21:30] VITALS: BP 133/59
[2020-03-30 05:10] LABS: BASOPHILS 0.5 % (0-2); EOSINOPHILS 6.6 % (0-7); HEMATOCRIT 26.6 % (36.0-48.0); HEMOGLOBIN 8.5 g/dL (12-16); IMMATURE GRANULOCYTES 1.4 % (0-5); MCH 30.2 pg (26.0-34.0); MCV 94.7 fL (80.0-100.0); MEAN PLATELET VOLUME 12.3 fL (7.4-10.4); MONOCYTES 14.3 % (2-11); NEUTROPHILS 64.2 % (40-80); PLATELET COUNT 165 10x3/uL (130-400); RBC 2.81 10x6/uL (4.00-5.40); RDW 17.5 % (11.5-14.5); WBC 11.5 10x3/uL (4.8-10.8)
[2020-03-30 05:34] LABS: ALBUMIN 2.4 g/dL (3.4-5.0); BILIRUBIN - TOTAL 0.41 mg/dL (0.2-1.3); CALCIUM 8.3 mg/dL (8.5-10.1); CARBON DIOXIDE 28.2 mmol/L (21.0-32.0); CREATININE - SERUM 9.4 mg/dL (0.6-1.3); PHOSPHOROUS 2.9 mg/dL (2.5-4.9); POTASSIUM - SERUM 3.2 mmol/L (3.5-5.1); PROTEIN - SERUM 4.6 g/dL (6.4-8.2)
[2020-03-30 09:00] VITALS: BP 125/35
--- NOTE | 2020-03-30 09:21 | NUR ---
PT AWAKE AND ORIENETD, LYING IN BED. NO COMP,.AINTS OR CONCERNS AT THIS TIME.CL IN REACH, SRX2.
[2020-03-30 12:00] VITALS: BP 114/66
--- NOTE | 2020-03-30 14:06 | NUR ---
PT AWAKE AND ORIENTED. LYING IN BED. PD RUNNING. NO COMPLAINTS OR CONCERNS, AT BEDSIDE CL IN REACH, SRX.2
--- NOTE | 2020-03-30 14:17 | NUR ---
Rehab Note- Acute Inpatient Rehab prescreen order received. The patient has been in acute inpatient rehab and will accept back when medically stable and ready for discharge from the acute hospital. Will follow at this time. Thank you for this referral! Nakita Cole RN Clinical Liaison, [facility] Rehab
[2020-03-30 15:00] VITALS: BP 112/38
--- NOTE | 2020-03-30 19:30 | NUR ---
REPORT RECEIVED AND ROUNDING COMPLETE. PATIENT LAYING IN BED IN LOW FOWLERS. PATIENT HAS EYES CLOSED AND BREATHING SHALLOW AND UNLABORED. WEARING NASAL CANNULA WITH 02 AT 3L. NO PIV AT THIS TIME, HAS A RIGHT CHEST TRIALYSIS THAT IS TO BE USED. DAY SHIFT SAID THAT GAVE PERMISSION FOR ABX TO BE HUNG INTO TRIALYSIS FOR NOW. PD CATH TO THE LEFT ABD, PER MD'S NOTE PD IS TO BE HELF THROUGHPUT THE NIGHT AND RESTARTED IN THE AM AT 0800. PATIENT WAKES TO VOICE BUT DRIFTS BACK OFF TO SLEEP DURING CONVERSATION. PATIENT SHE IS HAVING NO N/V AT THIS TIME AND WISHES TO TAKE ALL HER PO MEDICATIONS THIS NIGHT. CALL LIGHT WIHTIN REACH AND BED IN LOWEST LOCKED POSITION. NO DISTRESS NOTED.
[2020-03-30 19:35] LABS: HEMATOCRIT 31.3 % (36.0-48.0); HEMOGLOBIN 9.9 g/dL (12-16); LYMPHOCYTES 5.1 % (15-50); MCH 30.4 pg (26.0-34.0); MCHC 31.6 g/dL (31.0-37.0); MEAN PLATELET VOLUME 11.4 fL (7.4-10.4); NEUTROPHILS 88.5 % (40-80); PLATELET COUNT 148 10x3/uL (130-400); RBC 3.26 10x6/uL (4.00-5.40); RDW 17.5 % (11.5-14.5); WBC 11.3 10x3/uL (4.8-10.8)
[2020-03-30 21:21] VITALS: BP 102/48
[2020-03-31 00:39] VITALS: BP 112/40
[2020-03-31 06:27] VITALS: BP 97/40
--- NOTE | 2020-03-31 06:51 | NUR ---
TALKED WITH SUKUMAR THIS MORNING SHE STATED SHE WILL PUT IN NEW ORDERS FOR PD TO START THIS MORNING.
[2020-03-31 07:13] LABS: ALBUMIN 2.5 g/dL (3.4-5.0); ANION GAP 11.3 mmol/L (8-16); BILIRUBIN - TOTAL 0.74 mg/dL (0.2-1.3); CALCIUM 8.6 mg/dL (8.5-10.1); CARBON DIOXIDE 27.4 mmol/L (21.0-32.0); CREATININE - SERUM 10.2 mg/dL (0.6-1.3); POTASSIUM - SERUM 3.7 mmol/L (3.5-5.1); PROTEIN - SERUM 5.2 g/dL (6.4-8.2); VANCOMYCIN - RANDOM 15.3 ug/mL (10.0-20.0)
--- NOTE | 2020-03-31 07:20 | NUR ---
0720-ROUNDING DONE WITH PATIENT LAYING ON RIGHT SIDE. ON 3L PER NASAL CANNULA. PATIENT DOES NOT WANT TO TURN, STATES THAT SHE IS MORE COMFORTABLE ON RIGHT SIDE. RIGHT IJ TRIALYSIS WITH NURSE PORT SALINE LOCK SEEN. PD CATH NOTED WITH LONG EXTENSION, SITE IS CLEAN AND DRY WITH DRESSING. BUTTOCK IS EXCORATED WITH REDNESS AND CALMOSEPTINE. GLASSES ON. BED ALARM IS PLACED ON PATIENT.
[2020-03-31 08:00] LABS: HEMATOCRIT 29.4 % (36.0-48.0); HEMOGLOBIN 9.2 g/dL (12-16); LYMPHOCYTES 7.1 % (15-50); MCH 30.2 pg (26.0-34.0); MCHC 31.3 g/dL (31.0-37.0); MCV 96.4 fL (80.0-100.0); MEAN PLATELET VOLUME 11.8 fL (7.4-10.4); NEUTROPHILS 81.9 % (40-80); PLATELET COUNT 143 10x3/uL (130-400); RBC 3.05 10x6/uL (4.00-5.40); RDW 17.3 % (11.5-14.5); WBC 10.5 10x3/uL (4.8-10.8)
[2020-03-31 08:22] VITALS: BP 143/95
--- NOTE | 2020-03-31 09:00 | NUR ---
SPOKE WITH FISCAL SERVICES DIRECTOR JAMA STAHL RN R/T REMOVING NURSE PORT TRIALYSIS. PATIENT HAS NO IV ACCESS. THIS WILL NOT BE REOVED AT THIS TIME.
--- NOTE | 2020-03-31 09:27 | NUR ---
0910-PD EXCHANGED DONE WITH PATIENT TAkING ALL 2000 CC OF PD ORDERED FLUID. I CALLED AND TALKED TO SHARON R/T NENA OVIEDO. OKAY TO GIVE ORDERED VANC. DOES NOT WANT TO EAT AT THIS TIME. CALL LIGHT IN USE.
--- NOTE | 2020-03-31 10:10 | NUR ---
Nutrition Follow-up: Pt sleeping soundly at time of visit this AM and did not wake upon entering room. Breakfast tray appeared untouched. Chart reviewed. Noted pt with 2 episodes coffee ground emesis; stage 1 sacral wound. PD this AM. Diet: Renal ADA, Nepro with meals Wt: 274.4# (03/31); 282.1# (03/27); 274.4# (03/25) Labs noted: Na 128, K+ 3.7, Glu 132, Alb 2.5 Meds noted: Protonix, Humulin, Tums, Miralax, Lantus -Encourage PO intake and honor food preferences within diet restrictions. -Will discuss Alf with pt to promote wound healing. -Monitor wt; noted daily wts ordered. -RD following.
[2020-03-31 11:57] VITALS: BP 141/74
--- NOTE | 2020-03-31 13:58 | NUR ---
COMPLETE BED LINEN CHANGE DONE WITH SPOUSE AT BEDSIDE. RIGHT CALF DRESSING AND FOOT ALONG WITH LEFT FOOT CHANGED. NO DATE TO ANY OF THEM. SEE NOTEDS.
--- NOTE | 2020-03-31 15:10 | NUR ---
PD EXCHANGE DONE WITH CLEAR YELLOW FLUID RETURN. CLEANED AGAIN FOR BM.
[2020-03-31 16:32] VITALS: BP 118/70
--- NOTE | 2020-03-31 19:38 | NUR ---
RPEORT RECEIVED AND ROUNDING COMPLETE. PATIENT LAYIGN IN BED ON LEFT SIDE. PATIENT IS WEARING NASAL CANNULA WITH O2 AT 3L. RIGHT CHEST TRIALYSIS, DRESSING C/D/I. PATIENT REQUEST NO MORE MIRLAX " GIVES HER THE SHITS". NO DISTRESS NOTED AT THIS TIME. PATIENT HAS NO NEEDS AT THIS TIME. CALL LIGHT WITHIN REACH AND BED IN LOWEST LOCKED POSITION.
[2020-03-31 20:00] VITALS: BP 140/49
[2020-04-01] VITALS: BP 127/46
[2020-04-01 04:00] VITALS: BP 161/64
[2020-04-01 06:21] LABS: HEMATOCRIT 27.3 % (36.0-48.0); HEMOGLOBIN 8.6 g/dL (12-16); LYMPHOCYTES 10.6 % (15-50); MCHC 31.5 g/dL (31.0-37.0); MCV 95.1 fL (80.0-100.0); MEAN PLATELET VOLUME 11.4 fL (7.4-10.4); NEUTROPHILS 75.3 % (40-80); PLATELET COUNT 150 10x3/uL (130-400); RBC 2.87 10x6/uL (4.00-5.40); RDW 17.6 % (11.5-14.5); WBC 9.9 10x3/uL (4.8-10.8)
[2020-04-01 06:23] LABS: ALBUMIN 2.2 g/dL (3.4-5.0); ANION GAP 10.4 mmol/L (8-16); BILIRUBIN - TOTAL 0.49 mg/dL (0.2-1.3); CALCIUM 8.4 mg/dL (8.5-10.1); CREATININE - SERUM 10.5 mg/dL (0.6-1.3); PHOSPHOROUS 3.5 mg/dL (2.5-4.9); POTASSIUM - SERUM 3.4 mmol/L (3.5-5.1); PROTEIN - SERUM 4.9 g/dL (6.4-8.2)
--- NOTE | 2020-04-01 06:39 | NUR ---
GAVE PATIENT FULL BATH AND CHANGED DRESSING FULLY TO RIGHT CALF.
--- NOTE | 2020-04-01 07:25 | NUR ---
AM ROUNDING DONE WITH PATIENT LAYING ON RIGHT SIDE. ON 3L PER NC. RIGHT IJ TRILAYSIS WITH NURSE PORT SALINE LOCK SEEN. PD CATH WITH DRY DRESSING. RIGHT LOWER LEG DRESSING DRY AND INTACT, DATED. LEFT HEEL DRESSING INTACT AND DRY. NON SKID SOCKS ON. DENIES ANY NAUSEA AT PRESENT TIME. WANTS TO SLEEP.
--- NOTE | 2020-04-01 08:34 | NUR ---
OT NOTE: (DOS 03/31/2020) PT COMPLETED FACE AND HAND HYGIENE WITH MIN/MOD A. PT COMPLETED POSITIONING IN BED WITH MOD A FOR INCREASED COMFORT. [phone] TONEY MARIA COTA
[2020-04-01 09:00] VITALS: BP 128/32
--- NOTE | 2020-04-01 09:48 | NUR ---
PD EXCHANGE DONE, TOLERATED WELL.
[2020-04-01 11:00] VITALS: BP 118/47
--- NOTE | 2020-04-01 11:12 | NUR ---
PATIENT IS ASSISTING IN MORE FREQUENT TURNS. BOTTOM IS VERY EXCORATED AND CALMOSEPTING APPLIED.
--- NOTE | 2020-04-01 12:37 | NUR ---
VERITO CANO RN TO SPEAK TO DR HAWTHORNE. HE ASKED THAT WE CALL DR CEBALLOS. ELIE SELLERS HAS CALLED OFFICE AND IS AWAITING CALL BACK FROM DR CEBALLOS SHE SPOKE TO DR CEBALLOS.
--- NOTE | 2020-04-01 13:00 | NUR ---
USING STERILE TECHNIQUE, RIGHT TRIALYSIS WITH NURSE PORT CHANGED. DATED.
--- NOTE | 2020-04-01 14:02 | NUR ---
SPOKE WITH NURSE OF DR. CEBALLOS ABOUT DR HOLLINS CONCERNS. DR CARDONA NURSE STATED THAT SHE WOULD INFORM DR CEBALLOS OF QUESTIONS AND CALL THIS NURSE BACK
--- NOTE | 2020-04-01 14:18 | NUR ---
OT NOTE: PT PARTICIPATED BETTER TODAY. REQUIRED MOD ASSIST FOR BED MOB; SITTING ON EOB WITH GOOD BALANCE; MAX ASSIST TO CARLA SOCKS; MOD ASSIST TO CARLA GOWN; PT HAVING DIFFICULTY BRUSHING HAIR DUE TO UE WEAKNESS; ABLE TO WASH FACE, HANDS, AND CHEST WITH WASH CLOTH WITH SET UP AND EXT TIME. SIT TO STAND WITH MOD ASSIST; ABLE TO SIDE STEP SEVERAL STEPS WITH MIN ASSIST AND USE OF WALKER. PERFORMED SIT TO STAND SEVERAL TIMES TO IMPROVE STRENGTH AND ENDURANCE. REFUSED TO SIT UP IN CHAIR BUT DID WELL WITH REMAINDER OF THERAPY. COLLINS ANTOINE, OTR/L [id number]
[2020-04-01 15:00] VITALS: BP 137/53
--- NOTE | 2020-04-01 15:20 | NUR ---
DR CEBALLOS IN TO SEE PATIENT.
--- NOTE | 2020-04-01 15:31 | NUR ---
PD EXCHANGED DONE WITHOUT PROBLEMS. TOLERATED WELL.
--- NOTE | 2020-04-01 15:48 | NUR ---
OT NOTE: PT COMPLETED SUPINE TO SIT WITH MOD A. PT COMPLETED SIT TO STAND WITH MIN/MOD A. PT REQUIRED BED ELEVATION OR SIT TO STAND WOULD REQUIRE MOD/MAX A. PT COMPLETED SIDE STEPS WITH MIN A. PT COMPLETED FACE HYGIENE WITH SET UP AT EOB. [id number] THANK YOU,MOOKIE CORBIN
--- NOTE | 2020-04-01 19:53 | NUR ---
REPORT RECEIVED AND ROUNDING COMPLETE. PATIENT LAYING IN BED ON RIGHT SIDE. EYES CLOSED, EASILY AROUSED BY NURSE GIVING REPORT. WEARING NASAL CANNULA WITH 02 AT 2L. PATIENT HAS DRESSINGS TO RIGHT CALF AND LEFT HEEL, DRESSINGS ARE CLEAN DRY AND INTACT. STATES HAD A LONG DAY AND IS READY FOR BED. NO DISTRESS NOTED. CALL LIGHT WITHIN REACH AND BED IN LOWEST LOCKED POSITION.
[2020-04-01 20:00] VITALS: BP 128/45
[2020-04-02] VITALS: BP 147/62
--- NOTE | 2020-04-02 03:55 | NUR ---
DR. CHURCH CAME TO THE FLOOR AND INQUIRED ABOUT WHY THE PATIENT IS USING 1.5% PD FLUID, EXPLAINED THE BES TOF MY ABILITY. HE THEN GAVE MW NEW ORDER TO PUT IN PLACE. WILL FOLLOW THE NEW ORDERR.
[2020-04-02 04:00] VITALS: BP 160/62
--- NOTE | 2020-04-02 06:13 | NUR ---
CHANGED BANDAGE TO RIGHT CALF. PATIENT TOLERATED.
[2020-04-02 06:28] LABS: ALBUMIN 2.1 g/dL (3.4-5.0); ANION GAP 11.3 mmol/L (8-16); BILIRUBIN - TOTAL 0.46 mg/dL (0.2-1.3); CALCIUM 8.6 mg/dL (8.5-10.1); CREATININE - SERUM 10.3 mg/dL (0.6-1.3); MAGNESIUM - SERUM 1.3 mg/dL (1.8-2.4); PHOSPHOROUS 4.3 mg/dL (2.5-4.9); POTASSIUM - SERUM 3.3 mmol/L (3.5-5.1); PROTEIN - SERUM 4.8 g/dL (6.4-8.2); VANCOMYCIN - RANDOM 19.6 ug/mL (10.0-20.0)
[2020-04-02 07:31] LABS: HEMOGLOBIN 8.6 g/dL (12-16); LYMPHOCYTES 10.3 % (15-50); MCH 30.3 pg (26.0-34.0); MCHC 31.9 g/dL (31.0-37.0); MCV 95.1 fL (80.0-100.0); MEAN PLATELET VOLUME 11.9 fL (7.4-10.4); NEUTROPHILS 78.2 % (40-80); PLATELET COUNT 130 10x3/uL (130-400); RBC 2.84 10x6/uL (4.00-5.40); RDW 17.6 % (11.5-14.5); WBC 11.5 10x3/uL (4.8-10.8)
[2020-04-02 08:30] VITALS: BP 123/67
--- NOTE | 2020-04-02 08:49 | NUR ---
PT SITTING ON THE SIDE OF BED EATING BREAKFAST.
--- NOTE | 2020-04-02 09:31 | NUR ---
RIGHT HEEL BOGGY AND LEFT HEEL UNSTAGEABLE WOUND CARE DONE ORDERED. PT TOLERATED WELL.
--- NOTE | 2020-04-02 10:26 | NUR ---
Nutrition Follow-up: Noted pt ate ~25% of breakfast this AM. When asked if she has been drinking Nepro, she states "I forget". Denies N/V. Diet: Renal ADA, Nepro TID PO intake: 46% avg x last 4 meals Wt: 274.4# (03/31); 274.4# (03/25) Last BM: 04/02 Labs noted: Na 127, K+ 3.3, Glu 197, PO4 4.3, Mg 1.3, Alb 2.1 Meds noted: Tums, Humulin, Lantus -Encourage PO intake and honor food preferences within diet restrictions. -Monitor wt; noted daily wts ordered. -RD following.
--- NOTE | 2020-04-02 10:38 | NUR ---
MICROBIOLOGY CALLED AND STATED TO PLACE PT ON CONTACT ISOLATION FOR MULTI DRUG RESISTANCE BACTERIA IN THE BLOOD. I VERBALIZED UNDERSTANDING AND PT PLACED ON CONTACT ISOLATION.
[2020-04-02 12:00] VITALS: BP 137/49
--- NOTE | 2020-04-02 13:02 | NUR ---
OT NOTE: OT AND DAMICO ASSISTED PT TODAY. PT REPORTING THAT SHE HAS HAD SEVERAL DIARRHEA EPISODES THIS AM, BUT IS AGREEABLE TO ATTEMPT TO GET UP.. PRACTICED BED MOB WITH PT INITIALLY..REQUIRED VERBAL AND TACTILE CUES FOR POSITIONING OF FEET AND USE OF GRAB BARS WHEN ROLLING SIDE TO SIDE.. ABLE TO ROLL TO L SIDE WITH MOD ASSIST AND MIN/MOD ASSIST FOR R SIDE. PT REPORTED THAT SHE NEEDED TO USE THE BED QUEEN.. PROVIDED AND POSITIONED PT ON BED QUEEN.. MAX ASSIST WITH HYGIENE WITH MODERATE AMOUNT OF SOFT STOOL IN QUEEN. PRACTICED SUPINE TO SIT WITH MOD ASSIST; SIT TO STAND WITH MOD ASSIST..WHILE PT WAS IN STANDING POSITION, THERAPIST APPLIED CREAM TO BUTTOCKS. PT WAS ABLE TO TAKE A FEW SIDE STEPS TO THE LEFT AND RIGHT; REQUIRED SHORT SIT DOWN REST BREAK, AND THEN STOOD TO PERFORM AGAIN. PT WAS AGREEABLE TO SIT UP IN CHAIR, HOWEVER, THIS THERAPIST THOUGHT IT WOULD BE TOO UNCOMFORTABLE DUE TO THE OPEN AREAS ON BACK SIDE. BACK TO BED WITH MAX ASSIST; MAX ASSIST TO SCOOT UP IN BED. DAMICO FINISHED UP WITH ADL TRAINING/EXS. COLLINS ANTOINE, OTR/L [phone]
--- NOTE | 2020-04-02 13:25 | MORECARE ---
CASE MANAGEMENT DISCHARGE SUMMARY PATIENT: MONE VOGEL UNIT: [id number] ADM DATE: 03/23/20 AGE: 64 : 59 SEX: F ROOM/BED: D.210 AUTHOR: TRANG CLAUDIO PHYSICIAN: REFERRING PHYSICIAN: FREDDY PATINO DO DATE OF SERVICE: 04/02/20 Discharge Plan Patient Name: MONE VOGEL Facility: [facility]:[place] : 1955 Planned Disposition: Inpatient Rehab Anticipated Discharge Date: Discharge Date: Expected LOS: Initial Reviewer: [id number] Initial Review Date: 03/23/2020 Generated: 04/02/20 2:24 pm Comments DCP- Discharge Planning Updated by [id number]: Leila Zheng on 04/02/20 12:[address] DC Plan: [facility]. CM met with patient to discuss initial discharge planning. Patient is in agreement to proceed with the assessment. Patient reports that she lives at home independently with her , Alvin. Patient is alert/oriented. Stairs/steps: Ramp. PCP: Dr. Sykes. Pharmacy: [address]. Patient states she has been able to obtain all of her prescribed medications. HHS: No. DME: Walker, W/C, Shower Bench, Toilet riser, grab bars. Patient gives permission to speak with family members/care givers. Emergency contact: Lori Cadena (mother) [phone]. Patient is Independent with all ADL's, medication management PLANISHER. CM discussed the availability of HH, Rehab, SNF, OP Therapy, DME services. Patient states that her assist her, if needed. Patient agrees to return to [facility] upon DC. KYLAH signed. Patient denies hospitalization within the past 30 days. Patient denies the use of community resources PLANISHER. Transportation at time of discharge: Family. Coverage Notice Reviewer: [id number] - Leila Zheng Notice Issued Date-Time: 04/02/2020 13:09 Notice Type: IM Discharge Notice Notice Delivered To: Patient Relationship to Patient: Self Sales Office Manager Name: Mone Vogel Delivery Method: HAND - Hand Delivered Galilea Days: Prior Verbal Notification: Recipient Understood Notice: Yes Recipient Signature: Yes Med Rec Note Co-signed by Attending: Coverage Notice Comment: DC IMM signed Patient Name: MONE VOGEL Page [phone] at 1325 All edits/amendments must be made on the electronic document DICTATION DATE: 04/02/201323 FIRE BATTALION CHIEF: JERMAIN 04/02/204 RPT#: [id number] DC DATE: STATUS: ADM IN [facility] [address] [place] [address] END OF REPORT
--- NOTE | 2020-04-02 16:49 | NUR ---
EKG DONE AND CONSENTS FOR SX TOMORROW SIGNED.
--- NOTE | 2020-04-02 17:00 | NUR ---
PT CALLED AND WANTED ME TO TALK TO HIM ABOUT SX TOMORROW. SPOKE WITH PT'S OVER THE PHONE AND EXPLAINED ABOUT SX TOMORROW ALL QUESTIONS ANSWERED AND HE VERBALIZED UNDERSTANDING.
--- NOTE | 2020-04-02 18:22 | NUR ---
I have reviewed this patient and I concur with the Shift Assessment completed by the Licensed Practical Nurse today this shift.
--- NOTE | 2020-04-02 19:05 | NUR ---
OT NOTE: PT COMPLETED BUE AROM EXS TOLERATED. PT COMPLETED HAIR GROOMING AND FACE HYGIENE WITH SETUP. PT REQUIRED MAX A X2 FOR LB HYGIENE TASKS. [phone] THANK YOU,MOOKIE CORBIN
--- NOTE | 2020-04-02 19:33 | NUR ---
RESTING WITH EYTES CLOSED BED LOW AND LOCKED SRX2 AND CALL LIGHT WITH PT WILL CONTINUE TO OBSERVE CONTACT ISOLATION
[2020-04-02 20:00] VITALS: BP 105/41
[2020-04-03] VITALS (7 sets, daily range): BP systolic 111–136; BP diastolic 52–74
--- NOTE | 2020-04-03 03:06 | NUR ---
I have reviewed this patient and I concur with the Shift Assessment completed by the Licensed Practical Nurse today this shift.
[2020-04-03 05:03] LABS: HEMATOCRIT 27.7 % (36.0-48.0); HEMOGLOBIN 8.8 g/dL (12-16); LYMPHOCYTES 9.1 % (15-50); MCH 30.3 pg (26.0-34.0); MCHC 31.8 g/dL (31.0-37.0); MCV 95.5 fL (80.0-100.0); MEAN PLATELET VOLUME 11.8 fL (7.4-10.4); PLATELET COUNT 132 10x3/uL (130-400); RDW 17.8 % (11.5-14.5); WBC 12.7 10x3/uL (4.8-10.8)
[2020-04-03 05:29] LABS: ANION GAP 10.9 mmol/L (8-16); BILIRUBIN - TOTAL 0.45 mg/dL (0.2-1.3); CALCIUM 8.3 mg/dL (8.5-10.1); CARBON DIOXIDE 29.2 mmol/L (21.0-32.0); CREATININE - SERUM 10.1 mg/dL (0.6-1.3); PHOSPHOROUS 4.6 mg/dL (2.5-4.9); POTASSIUM - SERUM 3.1 mmol/L (3.5-5.1); PROTEIN - SERUM 4.8 g/dL (6.4-8.2); VANCOMYCIN - RANDOM 16.3 ug/mL (10.0-20.0)
--- NOTE | 2020-04-03 10:16 | NUR ---
OT NOTE: PERFORMED BED MOB WITH MOD/MAX ASSIST; EOB SITTING WITH SPV; MAX ASSIST FOR TOILET HYGIENE; SETUP FOR GROOMING TASKS. PT REPORTED THAT SHE ALREADY HAD A SPONGE BATH THIS AM. SIT TO STAND WITH MOD ASSIST; TRANSFER TO CHAIR WITH WALKER AND MIN ASSIST. PT TOLERATED WELL. PROVIDED CUSHION FOR CHAIR DUE TO SEVERE BREAKDOWN ON BUTTOCKS. EDUCATED ON UE EXS WHICH CAN BE PERFORMED FROM CHAIR LEVEL. PTS PARTICIPATION IS MUCH BETTER OVER LAST SEVERAL DAYS. COLLINS ANTOINE, OTR/L [phone]
--- NOTE | 2020-04-03 10:41 | NUR ---
CALLED AND SPOKE WITH ROJAS NARAYAN AND SHE STATES TO DRAIN PT AND DO NOT FILL FOR SX. I VEBRALIZED UNDERSTANDING. PT PD DRAINED AND NOT FILLED.
--- NOTE | 2020-04-03 12:43 | NUR ---
DR. CHURCH STATES TO ME TO MAKE SURE DR. 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 CALLED AND SPOKE WITH SX AND THEY STATED THEY WILL TELL DR. CEBALLOS. I VERBALIZED UNDERSTANDING.
--- NOTE | 2020-04-03 16:15 | NUR ---
I have reviewed this patient and I concur with the Shift Assessment completed by the Licensed Practical Nurse today this shift.
--- NOTE | 2020-04-03 17:30 | NUR ---
SPOKE WITH ROJAS NARAYAN AND SHE STATES TO RESUME PD UNTIL TOMORROW AND PT WILL GO TO HD. I VERBALIZED UNDERSTANDING.
--- NOTE | 2020-04-03 18:41 | NUR ---
PT ARRIVED TO FLOOR VIA BED. ALERT AND ORIENTED. VS STABLE. O2 AT 3L VIA NC. RIGHT CALF WOUND VAC SET UP IN SX AND WORKING. LEFT LEG SCD. LEFT HAND 22G IV INSERTED IN SX AND INFUSING NS. SX STATES DR. CEBALLOS PERFORMED A I&D AND WOUND VAC PLACEMENT OF THE RIGHT CALF AND RT CHEST TRIALYSIS EXCHANGE. PT'S AT BEDSIDE. BED LOW. CL IN REACH. WILL CONTINUE TO MONITOR.
--- NOTE | 2020-04-03 19:45 | NUR ---
PATIENT IS RESTING COMFORTABLY IN BED. SHE IS ALERT AND ORIENTED. SHE IS ON ISOLATION FOR MRSO. SHE IS A PERITONEAL DIALYSIS PATIENT. SHE IS ON CONTINUOUS VITAL SIGNS.
[2020-04-04 02:41] VITALS: BP 139/64
--- NOTE | 2020-04-04 04:49 | NUR ---
PATIENT IS RESTING COMFORTABLY IN BED. BUTT CREAM APPIED TO BUTTOCKS. BOTH CYCLES OF PERITONEAL DIALYSIS DONE. SHE IS SUPPOSED TO GET HEMODIALYSIS TODAY.
[2020-04-04 05:57] VITALS: BP 110/85
[2020-04-04 07:05] LABS: BASOPHILS 0.5 % (0-2); EOSINOPHILS 5.7 % (0-7); HEMATOCRIT 27.2 % (36.0-48.0); HEMOGLOBIN 8.5 g/dL (12-16); IMMATURE GRANULOCYTES 0.8 % (0-5); LYMPHOCYTES 7.7 % (15-50); MCH 29.5 pg (26.0-34.0); MCHC 31.3 g/dL (31.0-37.0); MCV 94.4 fL (80.0-100.0); MEAN PLATELET VOLUME 11.7 fL (7.4-10.4); MONOCYTES 7.5 % (2-11); NEUTROPHILS 77.8 % (40-80); PLATELET COUNT 150 10x3/uL (130-400); RBC 2.88 10x6/uL (4.00-5.40); RDW 17.4 % (11.5-14.5); WBC 13.1 10x3/uL (4.8-10.8)
[2020-04-04 07:20] LABS: ANION GAP 12.7 mmol/L (8-16); BILIRUBIN - TOTAL 0.37 mg/dL (0.2-1.3); CALCIUM 7.9 mg/dL (8.5-10.1); CARBON DIOXIDE 27.3 mmol/L (21.0-32.0); CREATININE - SERUM 9.9 mg/dL (0.6-1.3); PROTEIN - SERUM 4.7 g/dL (6.4-8.2); VANCOMYCIN - RANDOM 24.6 ug/mL (10.0-20.0)
[2020-04-04 08:00] VITALS: BP 130/39
--- NOTE | 2020-04-04 12:13 | NUR ---
UP IN CHAIR THIS AM WITH PT, WOUND VAC TO R LOWER LEG,TRIALYSIS CATH TO R CHEST, IV TO L HAND, NO DISTRESS NOTED, CONT TO MONITOR
--- NOTE | 2020-04-04 12:30 | NUR ---
PT DRAINED OF PERITONEAL SOLUTION 1700CC UNSING SKIP MINER BLASTING.,SERINA WELL AWAITING HEMO DIALYSIS THIS PM,
[2020-04-04 15:00] VITALS: BP 125/35
--- NOTE | 2020-04-04 18:41 | NUR ---
DIALYSIS TO SEE PT LATE TONIGHT, POSSIBLY 9
--- NOTE | 2020-04-04 19:20 | NUR ---
RECEIVED REPORT, WILL ASSUME CARE OF PT, PT IS SLEEPING ON R.SIDE, NO DISTRESS NOTICED AT THIS TIME, BED IS LOW, SRX2, CALL LIGHT IN REACH, WILL CONTINUE PLAN OF CARE
[2020-04-04 20:00] VITALS: BP 155/57
--- NOTE | 2020-04-04 20:28 | NUR ---
BS-105, HELD INSULIN, REFUSED MIRALAX
[2020-04-05] VITALS: BP 141/54
[2020-04-05 04:00] VITALS: BP 135/55
--- NOTE | 2020-04-05 04:03 | NUR ---
I have reviewed this patient and I concur with the Shift Assessment completed by the Licensed Practical Nurse today this shift.
[2020-04-05 04:49] LABS: BASOPHILS 0.3 % (0-2); EOSINOPHILS 4.8 % (0-7); HEMATOCRIT 26.7 % (36.0-48.0); HEMOGLOBIN 8.3 g/dL (12-16); IMMATURE GRANULOCYTES 0.8 % (0-5); LYMPHOCYTES 8.6 % (15-50); MCH 29.1 pg (26.0-34.0); MCHC 31.1 g/dL (31.0-37.0); MCV 93.7 fL (80.0-100.0); MEAN PLATELET VOLUME 11.6 fL (7.4-10.4); MONOCYTES 7.6 % (2-11); NEUTROPHILS 77.9 % (40-80); PLATELET COUNT 158 10x3/uL (130-400); RBC 2.85 10x6/uL (4.00-5.40); RDW 17.4 % (11.5-14.5); WBC 12.8 10x3/uL (4.8-10.8)
[2020-04-05 05:10] LABS: ALBUMIN 1.9 g/dL (3.4-5.0); ANION GAP 8.7 mmol/L (8-16); BILIRUBIN - TOTAL 0.43 mg/dL (0.2-1.3); CALCIUM 7.9 mg/dL (8.5-10.1); CARBON DIOXIDE 29.6 mmol/L (21.0-32.0); CREATININE - SERUM 6.9 mg/dL (0.6-1.3); PHOSPHOROUS 2.9 mg/dL (2.5-4.9); POTASSIUM - SERUM 3.3 mmol/L (3.5-5.1); PROTEIN - SERUM 4.5 g/dL (6.4-8.2); VANCOMYCIN - RANDOM 20.3 ug/mL (10.0-20.0)
[2020-04-05 08:00] VITALS: BP 131/36
--- NOTE | 2020-04-05 08:21 | NUR ---
PT ALERT AND ORIENTED UPON ENTERING. ADMINISTERED MORNING MEDICATION, NO DIFFICULTIES. RESTING IN BED. PROVIDED PT WITH EMESIS BAG AND CALL LIGHT PER REQUEST. DENIES ANY OTHER NEEDS. WILL CONTINUE TO MONITOR.
--- NOTE | 2020-04-05 08:26 | NUR ---
RECEIVED REQUEST FROM DR ALLEN TO REMOVE PATIENT FROM FAMILY MEDICAINE LIST THEY ARE NOT PRIMARY DOCTORS. CALLED JEFF BERRY IN ER REGISTRATION AND REQUESTED THAT FAMILY MEDICINE BE REMOVED THEIR PRIMARY. CONTINUE WITH PLAN OF CARE
[2020-04-05 11:00] VITALS: BP 127/52
--- NOTE | 2020-04-05 12:13 | NUR ---
I have reviewed this patient and I concur with the Shift Assessment completed by the Licensed Practical Nurse today this shift.
--- NOTE | 2020-04-05 12:14 | NUR ---
HUNG IV ABX, TOLERATING WELL. ADMINISTERED 12 UNITS INSULIN PER SLIDING SCALE FOR SUGAR OF 216. RESTING COMFORTABLY IN BED. DENIES ANY NEEDS. WILL CONTINUE TO MONITOR.
--- NOTE | 2020-04-05 12:54 | NUR ---
OT NOTE: UPON ENTERING ROOM, PT WAS TRANSFERING FROM CHAIR TO BED WITH AND USE OF WALKER. SHE WAS CURRENTLY HAVING AN EPISODE OF DIARRHEA WHICH WAS ON CHAIR, FLOOR, GOWN, AND LEGS. BACK TO BED WITH MAX ASSIST FOR LE MGMT. ROLLING SIDE TO SIDE WITH MOD ASSIST; TOILET HYGIENE/PERINEAL CARE PROVIDED; MOD ASSIST TO DOFF AND CARLA CLEAN GOWN; REQUIRED COMPLETE LINEN CHANGE. MAX ASSIST FOR SCOOTING UP IN BED. ROLLED SIDE TO SIDE WITH MAX ASSIST TO PLACE BED QUEEN. ENCOURAGED PT TO ATTEMPT USE OF BS COMMODE, HOWEVER, SHE REFUSED. ABLE TO PERFORM SIMPLE GROOMING TASKS WITH SET UP.. TOLERATED SITTING UP IN CHAIR APPROX 30 MIN COLLINS ANTOINE, OTR/L [phone]
[2020-04-05 15:00] VITALS: BP 134/46
--- NOTE | 2020-04-05 16:28 | NUR ---
ADMINISTERED 12 UNITS INSULIN PER SLIDING SCALE FOR SUGAR OF 223. HUNG IV IRON, TOLERATING WELL. FAMILY AT BEDSIDE. DENIES ANY NEEDS. WILL CONTINUE TO MONITOR.
--- NOTE | 2020-04-05 19:27 | NUR ---
RECEIVED REPORT, WILL ASSUME CARE OF PT, SLEEPING, NO DISTRESS NOTICED AT THIS TIME, BED IS LOW, SRX2, CALL LIGHT IS ON, ALARM IS ON, WILL CONTINUE PLAN OF CARE
[2020-04-05 20:00] VITALS: BP 136/57
[2020-04-06] VITALS: BP 161/63
[2020-04-06 04:00] VITALS: BP 107/68
[2020-04-06 04:56] LABS: BASOPHILS 0.4 % (0-2); HEMATOCRIT 26.9 % (36.0-48.0); HEMOGLOBIN 8.4 g/dL (12-16); IMMATURE GRANULOCYTES 0.7 % (0-5); LYMPHOCYTES 7.6 % (15-50); MCH 29.6 pg (26.0-34.0); MCHC 31.2 g/dL (31.0-37.0); MCV 94.7 fL (80.0-100.0); MEAN PLATELET VOLUME 11.6 fL (7.4-10.4); MONOCYTES 9.2 % (2-11); NEUTROPHILS 78.1 % (40-80); PLATELET COUNT 184 10x3/uL (130-400); RBC 2.84 10x6/uL (4.00-5.40); WBC 14.9 10x3/uL (4.8-10.8)
[2020-04-06 05:04] LABS: ALBUMIN 1.9 g/dL (3.4-5.0); ANION GAP 10.7 mmol/L (8-16); BILIRUBIN - TOTAL 0.51 mg/dL (0.2-1.3); CALCIUM 8.4 mg/dL (8.5-10.1); CARBON DIOXIDE 28.1 mmol/L (21.0-32.0); CREATININE - SERUM 8.1 mg/dL (0.6-1.3); PROTEIN - SERUM 4.8 g/dL (6.4-8.2); VANCOMYCIN - RANDOM 18.8 ug/mL (10.0-20.0)
[2020-04-06 05:09] LABS: POTASSIUM - SERUM 3.8 mmol/L (3.5-5.1)
--- NOTE | 2020-04-06 06:52 | NUR ---
I have reviewed this patient and I concur with the Shift Assessment completed by the Licensed Practical Nurse today this shift.
[2020-04-06 08:10] VITALS: BP 147/43
[2020-04-06 11:24] VITALS: BP 158/55
--- NOTE | 2020-04-06 14:12 | NUR ---
NUTRITION F/U CHART REVIEWED. PT ON ADA DIET, RECENT POOR PO INTAKE. KENZIE RAE'D BY NEPHROLOGY. WILL CONTINUE TO PROVIDE DIET, MONITOR INTAKE. RD FOLLOWING
--- NOTE | 2020-04-06 15:00 | NUR ---
REPORT RECEIVED, WILL CONTINUE POC. PATIENT IS ON LEFT SIDE, RESTING WITH EYES CLOSED. NO S/S OF DISTRESS OBSERVED, RR EVEN AND UNLABORED ON 3L O2 VIA NC. PATIENT DENIES NEEDS AT THIS TIME. CL IN REACH, BED LOCKED AND LOWERED. WILL CTM.
[2020-04-06 17:41] VITALS: BP 114/72
--- NOTE | 2020-04-06 19:15 | NUR ---
RECEIVED REPORT, WILL ASSUME CARE OF PT, RECEIVING DIALYSIS, DENIES ANY NEEDS, BED IS LOW, SRX3, CALL LIGHT IN REACH, WILL CONTINUE PLAN OF CARE
--- NOTE | 2020-04-06 20:00 | NUR ---
PT IS STILL RECEIVING DIALYSIS, WILL GIVE MEDS WHEN COMPLETE
--- NOTE | 2020-04-06 20:47 | NUR ---
OT NOTE: PT COMPLETED POSITIONING IN BED WITH MOD/MAX A. PT IS IN PAIN TODAY. NURSING AWARE. [phone] THANK YOU,MOOKIE CORBIN
--- NOTE | 2020-04-06 21:19 | NUR ---
HEMODIALYSIS TREATMENT STOPPED AFTER I WAS UNABLE TO GET A BLOOD PRESSURE READING ON PATIENT FOR TOO LONG, PATIENT STATED SHE FELT FINE DURING THIS TIME WITH NO OTHER CHANGES IN HER VITALS OR PRESSURES ON MACHINE, BUT NOT SAFE TO CONTINUE TREATMENT, BLOOD RETURNED. BLOOD PRESSURE OF 92/52 OBTAINED, NET FLUID REMOVED WAS 1000ML.
[2020-04-06 21:47] VITALS: BP 142/67
[2020-04-07 00:30] VITALS: BP 130/49
--- NOTE | 2020-04-07 02:32 | NUR ---
I have reviewed this patient and I concur with the Shift Assessment completed by the Licensed Practical Nurse today this shift.
[2020-04-07 04:00] VITALS: BP 162/76
[2020-04-07 05:33] LABS: BASOPHILS 0.2 % (0-2); EOSINOPHILS 3.3 % (0-7); HEMATOCRIT 27.8 % (36.0-48.0); HEMOGLOBIN 8.9 g/dL (12-16); IMMATURE GRANULOCYTES 0.6 % (0-5); LYMPHOCYTES 6.3 % (15-50); MCH 30.6 pg (26.0-34.0); MCV 95.5 fL (80.0-100.0); MONOCYTES 7.3 % (2-11); NEUTROPHILS 82.3 % (40-80); PLATELET COUNT 219 10x3/uL (130-400); RBC 2.91 10x6/uL (4.00-5.40); RDW 18.3 % (11.5-14.5); WBC 16.5 10x3/uL (4.8-10.8)
[2020-04-07 05:51] LABS: ANION GAP 11.7 mmol/L (8-16); BILIRUBIN - TOTAL 0.54 mg/dL (0.2-1.3); CALCIUM 8.6 mg/dL (8.5-10.1); CARBON DIOXIDE 27.1 mmol/L (21.0-32.0); CREATININE - SERUM 7.1 mg/dL (0.6-1.3); MAGNESIUM - SERUM 1.5 mg/dL (1.8-2.4); POTASSIUM - SERUM 3.8 mmol/L (3.5-5.1); VANCOMYCIN - RANDOM 25.3 ug/mL (10.0-20.0)
--- NOTE | 2020-04-07 07:30 | NUR ---
REPORT RECIEVED. PT LYING ON RIGHT SIDE. RR EVEN AND UNLABORED ON 3L NC. WOUND VAC CURRENTLY NOT SEAL DUE TO LEAK. PT HAS A R CHEST TRIALYSIS AND A PD CATH. SHE IS A RESERVE R ARM. BED LOCKED AND IN LOWEST POSITION, CALL LIGHT WITHIN REACH. WILL CTM
[2020-04-07 08:43] VITALS: BP 144/47
--- NOTE | 2020-04-07 12:01 | NUR ---
OT NOTE: CHECKED ON PT IN THE AM.. SHE WAS LIEING ON HER SIDE MOANING IN PAIN, AT BEDSIDE. PT STATED THAT SHE FELT VERY BAD, REPORTED FEELING NAUSEOUS. EXPLAINED THAT SHE HAD TO START MOVING AROUND OR IT WOULD ONLY BECOME MORE DIFFICULT FOR HER. AFTER REMOVING SHEETS AND UNTANGLING TUBES/CORDS, PT WAS ABLE TO PERFORM SUPINE TO SIT WITH VERY MINIMAL ASSIST; MOD ASSIST TO SCOOT TO EOB; SIT TO STAND WITH WALKER WITH MOD ASSIST AND MIN ASSIST TO TAKE A FEW STEPS TO CHAIR FOR TRANSFER. TOLERATED SITTING UP IN CHAIR APPROX 45 MIN THEN REQUESTED TO GO BACK TO BED BECAUSE SHE WAS GETTING A PAIN PILL AND IT WOULD "KNOCK HER OUT".. PROVIDED PT WITH WASHCLOTH AND SHE WAS ABLE TO WASH FACE, ARMS, AND HANDS. MAX ASSIST TO DOFF AND CARLA SOCKS DUE TO REPORTED PAIN IN LEG AND STOMACH THAT PREVENTED HER FROM BENDING OVER. PT ALSO BEGAN C/O PAIN IN R SHOULDER. REPORTS THAT SHE STARTED COMPLAINING ABOUT IT YESTERDAY. PERFORMED PROM AND PT REPORTED THAT ALL POSITIONS HURT??? NURSING NOTIFIED. (PT DID NOT C/O PAIN WHEN WASHING FACE OR PUSHING UP FROM CHAIR FOR SIT TO STAND). PT WAS ABLE TO TRANSFER BACK TO BED WITH MIN ASSIST AND ALSO ABLE TO GET FEET BACK ON BED WITH MIN ASSIST; MODERATE CUEING TO SCOOT FROM R TO L IN BED, BUT MAX ASSIST TO SCOOT UP IN BED. RECOMMEND IP REHAB COLLINS ANTOINE, OTR/L [phone]
[2020-04-07 12:14] VITALS: BP 136/79
--- NOTE | 2020-04-07 12:15 | NUR ---
REINFORCED WOUND VAC DRESSING TO TRY TO GET A BETTER SEAL. ABLE TO GET VAC SEALED WITH A PILLOW PUTTING PRESSURE ON IT. BED LOCKED AND IN LOWEST POSITION, CALL LIGHT WITHIN REACH. WILL CTM
[2020-04-07 15:23] VITALS: BP 115/62
--- NOTE | 2020-04-07 16:51 | NUR ---
I have reviewed this patient and I concur with the Shift Assessment completed by the Licensed Practical Nurse today this shift.
--- NOTE | 2020-04-07 19:15 | NUR ---
PATIENT RESTING QUIETLY IN BED RECEIVING DIALYSIS, RIGHT TRIALYSIS INTACT, DIALYSIS NURSE AT BEDSIDE, O2@3L VIA NC IN USE, DENIES NEEDS AT THIS TIME, WILL CONTINUE TO MONITOR PATIENT, CALL LIGHT WITHIN REACH
[2020-04-07 20:00] VITALS: BP 146/72
[2020-04-08] VITALS: BP 112/52
--- NOTE | 2020-04-08 07:55 | NUR ---
REPORT RECIEVED. LYING ON RIGHT SIDE. RR EVEN AND UNLABORED ON 3L NC. SHE HAS A R CHEST TRIALYSIS AND A PD CATH. BED LOCKED AND IN LOWEST POSITION, CALL LIGHT WITHIN REACH. WILL CTM
[2020-04-08 08:00] VITALS: BP 154/58
[2020-04-08 11:00] VITALS: BP 117/58
[2020-04-08 15:00] VITALS: BP 148/54
--- NOTE | 2020-04-08 15:55 | NUR ---
OT NOTE: PT REFUSED IN AM.. STATED THAT PT HASNT FELT WELL TODAY. ATTEMPTED IN PM, BUT PT REFUSED DUE TO REPORTED PAIN IN R UE. COLLINS ANTOINE, OTR/L
--- NOTE | 2020-04-08 17:54 | NUR ---
I have reviewed this patient and I concur with the Shift Assessment completed by the Licensed Practical Nurse today this shift.
--- NOTE | 2020-04-08 19:21 | NUR ---
WENT UP TO DO PT DIALYSIS TX. NURSE GIVING REPORT TO ONCOMING NURSE. ASKED IF WE WERE GOING TO DO TX PT HAS BEEN AGITATED AND HAVING ALTERED MENTAL STATUS TODAY. PT CURRENTLY RESTING QUIETLY, RESP EVEN. TX WAS DONE LATE YESTERDAY EVENING. K WAS 3.8 YESTERDAY. WILL REASSES PT IN AM.
[2020-04-08 20:00] VITALS: BP 110/56
--- NOTE | 2020-04-08 22:40 | NUR ---
PATIENT IS RESTING IN BED. SHE IS CONFUSED TO EVENTS.SHE IS ON NASAL CANULA. SHE HAS A WOUND VAC TO RIGHT CALF. SHE IS GETTING IV ABX.
[2020-04-09] VITALS: BP 119/54
[2020-04-09 04:00] VITALS: BP 148/44
--- NOTE | 2020-04-09 04:40 | NUR ---
PATIENT IS SLEEPING IN BED. SHE IS CONFUSED TO EVENTS. THE WOULD VAC HAD A LEAK. I TRIED TO FIX IT. THE WOUND NURSE CAME UP AND HELPED ME STOP THE LEAK IN WOUND VAC.
[2020-04-09 09:00] VITALS: BP 129/54
--- NOTE | 2020-04-09 11:42 | NUR ---
Nutrition Follow-up: Not eating well. Declines Nepro/Glucerna. Requesting chicken noodle soup or cream of chicken soup for lunch. Diet: Diabetic Wt: 281# (04/09); 299# (04/06); 274.4# (03/31); 274.4# (03/25) Labs reviewed Meds noted: Nephrovite, Tums, Lantus -Encourage PO intake and honor food preferences within diet restrictions. -Monitor wt. -RD following.
[2020-04-09 12:12] LABS: ANION GAP 7.3 mmol/L (8-16); BILIRUBIN - TOTAL 0.54 mg/dL (0.2-1.3); CALCIUM 8.7 mg/dL (8.5-10.1); CARBON DIOXIDE 30.7 mmol/L (21.0-32.0); CREATININE - SERUM 5.7 mg/dL (0.6-1.3); PHOSPHOROUS 2.8 mg/dL (2.5-4.9); PROTEIN - SERUM 5.1 g/dL (6.4-8.2)
[2020-04-09 12:34] LABS: BASOPHILS 0.5 % (0-2); EOSINOPHILS 6.3 % (0-7); HEMATOCRIT 29.8 % (36.0-48.0); HEMOGLOBIN 9.1 g/dL (12-16); IMMATURE GRANULOCYTES 0.5 % (0-5); LYMPHOCYTES 9.6 % (15-50); MCH 29.7 pg (26.0-34.0); MCHC 30.5 g/dL (31.0-37.0); MCV 97.4 fL (80.0-100.0); MEAN PLATELET VOLUME 11.1 fL (7.4-10.4); MONOCYTES 10.4 % (2-11); NEUTROPHILS 72.7 % (40-80); PLATELET COUNT 187 10x3/uL (130-400); RBC 3.06 10x6/uL (4.00-5.40); RDW 19.3 % (11.5-14.5); WBC 10.9 10x3/uL (4.8-10.8)
--- NOTE | 2020-04-09 13:43 | MORECARE ---
CASE MANAGEMENT DISCHARGE SUMMARY PATIENT: MONE VOGEL UNIT: [id number] ADM DATE: 03/23/20 AGE: 64 : 59 SEX: F ROOM/BED: D.2073 AUTHOR: TRANG CLAUDIO PHYSICIAN: REFERRING PHYSICIAN: FREDDY PATINO DO DATE OF SERVICE: 04/09/20 Discharge Plan Patient Name: MONE VOGEL Facility: [facility]:[place] : 1955 Planned Disposition: Inpatient Rehab Anticipated Discharge Date: Discharge Date: Expected LOS: Initial Reviewer: [id number] Initial Review Date: 03/23/2020 Generated: 04/09/20 2:43 pm Comments DCP- Discharge Planning Updated by [id number]: Leila Zheng on 04/09/20 12:[address] CM contacted Amanda, with [facility], per request of Dr. Murphy, for transfer back to [facility], message left. Await CB. DCP- Discharge Planning Updated by [id number]: Leila Zheng on 04/02/20 12:[address] DC Plan: [facility]. CM met with patient to discuss initial discharge planning. Patient is in agreement to proceed with the assessment. Patient reports that she lives at home independently with her , Alvin. Patient is alert/oriented. Stairs/steps: Ramp. PCP: Dr. Sykes. Pharmacy: [address]. Patient states she has been able to obtain all of her prescribed medications. HHS: No. DME: Walker, W/C, Shower Bench, Toilet riser, grab bars. Patient gives permission to speak with family members/care givers. Emergency contact: Lori Cadena (mother) [phone]. Patient is Independent with all ADL's, medication management GLASS SMOOTHER. CM discussed the availability of HH, Rehab, SNF, OP Therapy, DME services. Patient states that her assist her, if needed. Patient agrees to return to [facility] upon DC. KYLAH signed. Patient denies hospitalization within the past 30 days. Patient denies the use of community resources GLASS SMOOTHER. Transportation at time of discharge: Family. Coverage Notice Reviewer: [id number] - Leila Zheng Notice Issued Date-Time: 04/02/2020 13:09 Notice Type: IM Discharge Notice Notice Delivered To: Patient Relationship to Patient: Self Equipment Mechanic Name: Mone Vogel Delivery Method: HAND - Hand Delivered Galilea Days: Prior Verbal Notification: Recipient Understood Notice: Yes Recipient Signature: Yes Med Rec Note Co-signed by Attending: Coverage Notice Comment: DC IMM signed Reviewer: [id number] Zheng Notice Issued Date-Time: 04/02/2020 13:29 Notice Type: Patient Choice Letter Notice Delivered To: Patient Relationship to Patient: Self Equipment Mechanic Name: Mone Vogel Delivery Method: HAND - Hand Delivered Galilea Days: Prior Verbal Notification: Recipient Understood Notice: Yes Recipient Signature: Yes Med Rec Note Co-signed by Attending: Coverage Notice Comment: KYLAH signed for [facility] Reviewer: [id number] Zheng Notice Issued Date-Time: 04/02/2020 13:29 Notice Type: Notice Delivered To: Relationship to Patient: Equipment Mechanic Name: Delivery Method: - Galilea Days: Prior Verbal Notification: Recipient Understood Notice: Recipient Signature: Med Rec Note Co-signed by Attending: Coverage Notice Comment: Last DP export: 04/02/20 12:25 p Patient Name: MONE VOGEL Page [phone] at 1343 All edits/amendments must be made on the electronic document DICTATION DATE: 04/09/20 1343 NEWSPAPER WRITER: JERMAIN 04/09/20 1343 RPT#: [id number] DC DATE: STATUS: ADM IN [facility] [address] [place] [address] END OF REPORT
[2020-04-09 15:00] VITALS: BP 132/59
--- NOTE | 2020-04-09 16:05 | MORECARE ---
CASE MANAGEMENT DISCHARGE SUMMARY PATIENT: MONE VOGEL UNIT: [id number] ADM DATE: 03/23/20 AGE: 64 : 59 SEX: F ROOM/BED: D.7833 AUTHOR: TRANG CLAUDIO PHYSICIAN: REFERRING PHYSICIAN: FREDDY PATINO DO DATE OF SERVICE: 04/09/20 Discharge Plan Patient Name: MONE VOGEL Facility: [facility]:[place] : 1955 Planned Disposition: Inpatient Rehab Anticipated Discharge Date: Discharge Date: Expected LOS: Initial Reviewer: [email or web address] Initial Review Date: 03/23/2020 Generated: 04/09/20 5:05 pm Comments DCP- Discharge Planning Updated by [id number]: Leila Zheng on 04/09/20 2:[address] Per Nakita, the patient will be accepted to [facility] 04/10. CM contacted Amanda, with [facility], per request of Dr. Murphy, for transfer back to [facility], message left. Await CB. DCP- Discharge Planning Updated by [id number]: Leila Zheng on 04/02/20 12:[address] DC Plan: [facility]. CM met with patient to discuss initial discharge planning. Patient is in agreement to proceed with the assessment. Patient reports that she lives at home independently with her , Alvin. Patient is alert/oriented. Stairs/steps: Ramp. PCP: Dr. Sykes. Pharmacy: [address]. Patient states she has been able to obtain all of her prescribed medications. HHS: No. DME: Walker, W/C, Shower Bench, Toilet riser, grab bars. Patient gives permission to speak with family members/care givers. Emergency contact: Lori Cadena (mother) [phone]. Patient is Independent with all ADL's, medication management CHIEF RADIOLOGY. CM discussed the availability of HH, Rehab, SNF, OP Therapy, DME services. Patient states that her assist her, if needed. Patient agrees to return to [facility] upon DC. KYLAH signed. Patient denies hospitalization within the past 30 days. Patient denies the use of community resources CHIEF RADIOLOGY. Transportation at time of discharge: Family. Coverage Notice Reviewer: [id number] Kati Zheng Notice Issued Date-Time: 04/02/2020 13:09 Notice Type: IM Discharge Notice Notice Delivered To: Patient Relationship to Patient: Self Squeezer Operator Name: Mnoe Vogel Delivery Method: HAND - Hand Delivered Galilea Days: Prior Verbal Notification: Recipient Understood Notice: Yes Recipient Signature: Yes Med Rec Note Co-signed by Attending: Coverage Notice Comment: DC IMM signed Reviewer: [id number] Zheng Notice Issued Date-Time: 04/02/2020 13:29 Notice Type: Patient Choice Letter Notice Delivered To: Patient Relationship to Patient: Self Squeezer Operator Name: Mone Vogel Delivery Method: HAND - Hand Delivered Galilea Days: Prior Verbal Notification: Recipient Understood Notice: Yes Recipient Signature: Yes Med Rec Note Co-signed by Attending: Coverage Notice Comment: KYLAH signed for [facility] Reviewer: [id number] Kati Zheng Notice Issued Date-Time: 04/02/2020 13:29 Notice Type: Notice Delivered To: Relationship to Patient: Squeezer Operator Name: Delivery Method: - Galilea Days: Prior Verbal Notification: Recipient Understood Notice: Recipient Signature: Med Rec Note Co-signed by Attending: Coverage Notice Comment: Last DP export: 04/09/20 12:43 p Patient Name: MONE VOGEL Page [phone] at 1605 All edits/amendments must be made on the electronic document DICTATION DATE: 04/09/20 1605 IBM WEBSPHERE COMMERCE DEVELOPER: JERMAIN 04/09/20 1605 RPT#: [id number] DC DATE: STATUS: ADM IN [facility] [address] [place] [address] END OF REPORT
--- NOTE | 2020-04-09 16:43 | NUR ---
I have reviewed this patient and I concur with the Shift Assessment completed by the Licensed Practical Nurse today this shift.
--- NOTE | 2020-04-09 16:47 | NUR ---
OT NOTE: PT REFUSED OT THERAPY. PT EDUCATED ON IMPORTANCE OF PARTICIPATION . PT STATED SHE HAD VERY IMPORTANT PHONE CALL TO MAKE TO HER MOTHER AND FAMILY MEMEBERS. PT STATED SHE WOULD PARTICIPATE MONDAY. MOOKIE NOTIFIED NURSING OF PT REFUSAL. TONEY MARIA COTA
[2020-04-09 20:00] VITALS: BP 155/47
--- NOTE | 2020-04-09 20:07 | NUR ---
PATIENT RESTING COMFORTABLY IN BED. SHE HAS A WOUND VAC TO RIGHT CALF. SHE IS ALERT AND ORIENTATED. SHE IS ON NASAL CANULA. SHE TURNS SELF IN BED.
--- NOTE | 2020-04-09 22:05 | NUR ---
BLOOD SUGAR WAS 87. NO HUMLIN INSULIN WAS GIVEN. I CALLED ROJAS CALVERT APN WITH BLOOD SUGAR. SHE ORDERED 10 UNITS OF LANTUS TO BE GIVEN TONIGHT.
[2020-04-10] VITALS: BP 154/44
[2020-04-10 03:08] LABS: ALP - ISO (ALP) 109 IU/L (39-117); ALP - ISO (BONE) FRACTION 35 % (14-68); ALP - ISO (LIVER) FRACTION 62 % (18-85); ALP - ISO(INTESTINAL) FRACTION 3 % (0-18)
[2020-04-10 04:00] VITALS: BP 141/42
--- NOTE | 2020-04-10 04:36 | NUR ---
PATIENT IS SLEEPING IN BED. SHE HAS HAD 2 BMS THROUGH OUT NITE. MEPLIEX HAS BEEN CHANGED. SHE IS ON 4 LITERS NASAL CANULA. SHE HAS NOT VOIDED.
--- NOTE | 2020-04-10 07:26 | NUR ---
PT LAYING SUPINE. CONTACT PRECAUTIONS INTACT. CALL LIGHT WITHIN REACH. NO DISTRESS NOTED. BED IN LOWEST POSITION. WILL CONTINUE TO MONITOR.
[2020-04-10 08:00] VITALS: BP 151/39
--- NOTE | 2020-04-10 10:02 | OP ---
PATIENT NAME: MONE VOGEL MEDICAL RECORD: [id number] :59 LOCATION:D.M2 D.2102 ADMISSION DATE:03/23/20 SURGEON: BROWN CEBALLOS MD DATE OF OPERATION: 04/03/2020 REFERRING PHYSICIAN: Annie Patino DO PREOPERATIVE DIAGNOSES: End-stage renal disease and dependence on hemodialysis, fever and sepsis associated with indwelling central venous line in the right subclavian vein and associated with grossly infected pressure ulcer on the posterior aspect of the right calf 8 x 8 x 2 cm. 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 POSTOPERATIVE DIAGNOSES: End-stage renal disease and dependence on hemodialysis, fever and sepsis associated with indwelling central venous line in the right subclavian vein and associated with grossly infected pressure ulcer on the posterior aspect of the right calf 8 x 8 x 2 cm, sepsis with bacteremia by specified organism, morbid obesity due to excess calories, also pressure ulcer of other sites stage III, [id number], also, stenosis and abnormal tortuosity of right subclavian and brachiocephalic veins OPERATION PERFORMED: 1. Complete replacement by a guidewire exchange of right subclavian Trialysis dialysis catheter with fluoroscopic guidance and performance of a superior vena cavogram. 2. Excisional debridement of 60 square cm of skin and subcutaneous tissue and infected debris from 2 cm deep infected pressure ulcer on the posterior aspect of the right calf. SURGEON: Brown Ceballos MD ANESTHESIA: General endotracheal per AMBULETTE DRIVER. PREOPERATIVE NOTE: Ms. Vogel is a desperately ill 64-year-old white female patient with morbid obesity and end-stage renal disease. She has been dialyzing with a peritoneal catheter for a long time, but is not really getting adequate dialysis from that. She is in the hospital now having had fever, I believe due to an infected necrotic pressure ulcer on the posterior aspect of the right leg, although suspect her right subclavian hemodialysis catheter as well as her peritoneal catheter, but there is really no evidence of peritonitis or infection of the peritoneal catheter. She is brought to the operating room today with plans to remove and replace her hemodialysis catheter. She needs sites for venous access for medications and she is still not adequately dialyzed peritoneally and so needs to continue at least some hemodialysis. Also, the pressure ulcer on the right leg needs to be debrided and I believe that it should benefit by wound VAC treatment following that. Under general endotracheal anesthesia, the patient was prepped and draped in sterile manner. I removed the existing right subclavian Trialysis catheter under fluoroscopy and then over guidewire inserted a new 20-cm Trialysis catheter. The previous catheter had a very unusual tortuous course to the heart OPERATIVE REPORT [id number] MONE VOGEL and I was concerned that there was some extravascular component of that tract and so just before passing the subclavian catheter, I did inject contrast through the central lumen to perform a superior vena cavogram. This demonstrated an irregular subclavian and brachiocephalic vein, but no evidence of any extravasation or extravascular or collateral pass created from the 1st IV catheter. The guidewire followed the same route and the catheter was inserted easily. The tip was placed near the junction of the right atrium and the inferior vena cava. All 3 lumens were accessed and aspirated, free return of blood from each was confirmed. They were then flushed with saline and then heparin locked, clamped and capped. The catheter was sutured to the skin near the entry site with 2-0 Prolene and a sterile CVL dressing with chlorhexidine Biopatch was applied. The entire process above was done under fluoroscopy. The patient's leg was then exposed and then she was placed in supine position and reprepped and redraped. I performed a sharp debridement of necrotic skin and subcutaneous fat and fascia from this pressure wound on the posterior right calf, which measured 8 x 8 x 2 cm. I applied a wound VAC dressing with urrutia sponge and 1/2 strength Dakin's irrigation for this Xeroflo VAC. The patient was then awakened and taken to the recovery room. Blood loss during the operation had been trivial and unreplaced. Sponges, instruments, and needles were accounted for. No surgical specimen was submitted for histopathology, but cultures of her right calf wound were obtained for aerobic and anaerobic culture and sensitivity. The catheter tip was also sent for culture and sensitivity. TRANSINT:[id number] Voice Confirmation ID: [id number] DOCUMENT ID: [id number] BROWN CEBALLOS MD at 1002 CC: ANNIE PATINO DO [id number] DICTATION DATE: 04/08/20 1252 GRAIN MILLER HELPER: 04/08/20 2206 ADM IN [place] [id number] [place] [id number]
[2020-04-10 11:00] VITALS: BP 154/81
--- NOTE | 2020-04-10 11:55 | NUR ---
Dialysis Coordinator: Pt exected to d/c to acute rehab this discharge. Currently receiving HD, however, plan is for patient to return to PD prior to overall d/c to home. RIN RAE.
[2020-04-10] MEDS ORDERED: MIDODRINE HCL5 MG PO (12:23)
[2020-04-10] MEDS ORDERED: ULTRAM50 MG PO (12:25)
[2020-04-10] MEDS ORDERED: DAKIN'S 0.25%480 ML TOPICAL (12:25)
[2020-04-10 13:34] LABS: BASOPHILS 0.1 % (0-2); EOSINOPHILS 0.9 % (0-7); HEMATOCRIT 26.8 % (36.0-48.0); HEMOGLOBIN 8.5 g/dL (12-16); IMMATURE GRANULOCYTES 0.2 % (0-5); LYMPHOCYTES 21.8 % (15-50); MCH 29.5 pg (26.0-34.0); MCHC 31.7 g/dL (31.0-37.0); MEAN PLATELET VOLUME 10.7 fL (7.4-10.4); MONOCYTES 9.4 % (2-11); NEUTROPHILS 67.6 % (40-80); PLATELET COUNT 179 10x3/uL (130-400); RBC 2.88 10x6/uL (4.00-5.40); RDW 16.8 % (11.5-14.5)
[2020-04-10 13:35] LABS: MCV 93.1 fL (80.0-100.0)
[2020-04-10 13:44] LABS: ANION GAP 10.5 mmol/L (8-16); CALCIUM 8.8 mg/dL (8.5-10.1); CARBON DIOXIDE 29.7 mmol/L (21.0-32.0); POTASSIUM - SERUM 3.2 mmol/L (3.5-5.1)
[2020-04-10 13:45] LABS: CREATININE - SERUM 2.9 mg/dL (0.6-1.3)
[2020-04-10 13:50] LABS: VANCOMYCIN - RANDOM 46.7 ug/mL (10.0-20.0)
[2020-04-10 15:00] VITALS: BP 190/66
--- NOTE | 2020-04-10 15:02 | NUR ---
OT NOTE: (AM) PT COMPLETED COMPLETED SUPINE TO SIT WITH MOD/MAX A. PT COMPLETED SIT TO STAND WITH MOD/MAX A. PT COMPLETED HAIR BRUSHING WITH TOTAL A. PT STATED SHE WAS UNABLE TO BRUSH HAIR. PT COMPLETED SIDE STEPPING WITH MOD A. PT REQUIRED EXTENSIVE CUES FOR PARTICIPATION. PT WOULD NOT ANSWER QUESTIONS WITH COMPLETE SENTENCES AT BEGINNING OF THERAPY. NURSING AWARE. PT EXHIBITED SELF LIMITING BEHAVIORS. AT END OF SESSION, PT COMPLETED SIT TO SUPINE WITH MIN A. PT REQUESTED PAPER AND ACTIVELY ENGAGED. PT REFUSED TO SIT UP IN CHAIR. (PM) PT COMPLETED SELF FEEDING TASKS WITH SET UP. PT WAS ABLE TO BRING FOOD TO MOUTH WITH NO ASSISTANCE. [phone] THANK YOU,MOOKIE CORBIN
--- NOTE | 2020-04-10 16:44 | MORECARE ---
CASE MANAGEMENT DISCHARGE SUMMARY PATIENT: MONE VOGEL UNIT: [id number] ADM DATE: 03/23/20 AGE: 64 : 59 SEX: F ROOM/BED: D.4635 AUTHOR: TRANG CLAUDIO PHYSICIAN: REFERRING PHYSICIAN: FREDDY PATINO DO DATE OF SERVICE: 04/10/20 Discharge Plan Patient Name: MONE VOGEL Facility: [facility]:[place] : 1955 Planned Disposition: Inpatient Rehab Anticipated Discharge Date: Discharge Date: Expected LOS: Initial Reviewer: [email or web address] Initial Review Date: 03/23/2020 Generated: 04/10/20 5:44 pm Comments DCP- Discharge Planning Updated by [email or web address]: Leila Zheng on 04/09/20 2:[address] Per Nakita, the patient will be accepted to [facility] 04/10. CM contacted Amanda, with [facility], per request of Dr. Murphy, for transfer back to [facility], message left. Await CB. DCP- Discharge Planning Updated by [email or web address]: Leila Zheng on 04/02/20 12:[address] DC Plan: [facility]. CM met with patient to discuss initial discharge planning. Patient is in agreement to proceed with the assessment. Patient reports that she lives at home independently with her , Alvin. Patient is alert/oriented. Stairs/steps: Ramp. PCP: Dr. Sykes. Pharmacy: [address]. Patient states she has been able to obtain all of her prescribed medications. HHS: No. DME: Walker, W/C, Shower Bench, Toilet riser, grab bars. Patient gives permission to speak with family members/care givers. Emergency contact: Lori Cadena (mother) [phone]. Patient is Independent with all ADL's, medication management [employer]. CM discussed the availability of HH, Rehab, SNF, OP Therapy, DME services. Patient states that her assist her, if needed. Patient agrees to return to [facility] upon DC. KYLAH signed. Patient denies hospitalization within the past 30 days. Patient denies the use of community resources [employer]. Transportation at time of discharge: Family. Coverage Notice Reviewer: [id number] Kati Zheng Notice Issued Date-Time: 04/02/2020 13:09 Notice Type: IM Discharge Notice Notice Delivered To: Patient Relationship to Patient: Self News Intern Name: Mone Vogel Delivery Method: HAND - Hand Delivered Galilea Days: Prior Verbal Notification: Recipient Understood Notice: Yes Recipient Signature: Yes Med Rec Note Co-signed by Attending: Coverage Notice Comment: DC IMM signed Reviewer: [id number] Zheng Notice Issued Date-Time: 04/02/2020 13:29 Notice Type: Patient Choice Letter Notice Delivered To: Patient Relationship to Patient: Self News Intern Name: Mone Vogel Delivery Method: HAND - Hand Delivered Galilea Days: Prior Verbal Notification: Recipient Understood Notice: Yes Recipient Signature: Yes Med Rec Note Co-signed by Attending: Coverage Notice Comment: KYLAH signed for [facility] Reviewer: [id number] Kati Zheng Notice Issued Date-Time: 04/02/2020 13:29 Notice Type: Notice Delivered To: Relationship to Patient: News Intern Name: Delivery Method: - Galilea Days: Prior Verbal Notification: Recipient Understood Notice: Recipient Signature: Med Rec Note Co-signed by Attending: Coverage Notice Comment: Last DP export: 04/09/20 3:05 p Patient Name: MONE VOGEL Page [phone] at 1644 All edits/amendments must be made on the electronic document DICTATION DATE: 04/10/201643 STAIN APPLICATOR: JERMAIN 04/10/201643 RPT#: [id number] DC DATE: STATUS: ADM IN [facility] [address] [place] [address] END OF REPORT
--- NOTE | 2020-04-10 18:41 | NUR ---
PT AAO AND BEDFAST. ASSISTED WITH WOUNDVAC CHANGE. RR EVEN AND UNLABORED ON 3L 02. WILL CTM.
--- NOTE | 2020-04-10 19:11 | NUR ---
WOUND VAC TO RIGHT CALF CHANGED. WOUND BED IS BEEFY RED WITH SCANT AMOUNT OF SLOUGH, NO DRAINAGE NOTED. 7CM X 3.5CM X 0.5CM. PT TOLERATED WELL.
--- NOTE | 2020-04-11 14:57 | MORECARE ---
CASE MANAGEMENT DISCHARGE SUMMARY PATIENT: MONE VOGEL UNIT: [id number] ADM DATE: 03/23/20 AGE: 64 : 59 SEX: F ROOM/BED: D.4579 AUTHOR: TRANG CLAUDIO PHYSICIAN: REFERRING PHYSICIAN: FREDDY PATINO DO DATE OF SERVICE: 04/11/20 Discharge Plan Patient Name: MONE VOGEL Facility: [facility]:[place] : 1955 Planned Disposition: Inpatient Rehab Anticipated Discharge Date: Discharge Date: 04/10/2020 Expected LOS: Initial Reviewer: [id number] Initial Review Date: 03/23/2020 Generated: 04/11/20 3:57 pm Comments DCP- Discharge Planning Updated by [id number]: Leila Zheng on 04/09/20 2:[address] Per Nakita, the patient will be accepted to [facility] 04/10. CM contacted Amanda, with [facility], per request of Dr. Murphy, for transfer back to [facility], message left. Await CB. DCP- Discharge Planning Updated by [id number]: Leila Zheng on 04/02/20 12:[address] DC Plan: [facility]. CM met with patient to discuss initial discharge planning. Patient is in agreement to proceed with the assessment. Patient reports that she lives at home independently with her , Alvin. Patient is alert/oriented. Stairs/steps: Ramp. PCP: Dr. Sykes. Pharmacy: [address]. Patient states she has been able to obtain all of her prescribed medications. HHS: No. DME: Walker, W/C, Shower Bench, Toilet riser, grab bars. Patient gives permission to speak with family members/care givers. Emergency contact: Lori Cadena (mother) [phone]. Patient is Independent with all ADL's, medication management [employer]. CM discussed the availability of HH, Rehab, SNF, OP Therapy, DME services. Patient states that her assist her, if needed. Patient agrees to return to [facility] upon DC. KYLAH signed. Patient denies hospitalization within the past 30 days. Patient denies the use of community resources [employer]. Transportation at time of discharge: Family. Coverage Notice Reviewer: [id number] Kati Zheng Notice Issued Date-Time: 04/02/2020 13:09 Notice Type: IM Discharge Notice Notice Delivered To: Patient Relationship to Patient: Self Odd Job Worker Name: Mone Vogel Delivery Method: HAND - Hand Delivered Galilea Days: Prior Verbal Notification: Recipient Understood Notice: Yes Recipient Signature: Yes Med Rec Note Co-signed by Attending: Coverage Notice Comment: DC IMM signed Reviewer: [id number] Zheng Notice Issued Date-Time: 04/02/2020 13:29 Notice Type: Patient Choice Letter Notice Delivered To: Patient Relationship to Patient: Self Odd Job Worker Name: Mone Vogel Delivery Method: HAND - Hand Delivered Galilea Days: Prior Verbal Notification: Recipient Understood Notice: Yes Recipient Signature: Yes Med Rec Note Co-signed by Attending: Coverage Notice Comment: KYLAH signed for [facility] Reviewer: [id number] Zheng Notice Issued Date-Time: 04/02/2020 13:29 Notice Type: Notice Delivered To: Relationship to Patient: Odd Job Worker Name: Delivery Method: - Galilea Days: Prior Verbal Notification: Recipient Understood Notice: Recipient Signature: Med Rec Note Co-signed by Attending: Coverage Notice Comment: Last DP export: 04/10/20 3:44 p Patient Name: MONE VOGEL Page [phone] at 1457 All edits/amendments must be made on the electronic document DICTATION DATE: 04/11/204 NETEZZA ARCHITECT: JERMAIN 04/11/20 1457 RPT#: [id number] DC DATE:04/10/20 STATUS: DIS IN [place] [id number] [place] [address] END OF REPORT
== END 2020-04-10 19:44 | DRG 264 ==
LOC: D.M2 15:40
PROVIDERS: Internal Medicine Nephrology; Surgery; ADMIT Internal Medicine; ATTEND Internal Medicine
PROC: 05H533Z Insertion of Infusion Device into Right Subclavian Vein, Percutaneous Approach (ICD-10-PCS; principal; 2020-03-24)
PROC: B5161ZA Fluoroscopy of Right Subclavian Vein using Low Osmolar Contrast, Guidance (ICD-10-PCS; 2020-04-03)
PROC: 05H533Z Insertion of Infusion Device into Right Subclavian Vein, Percutaneous Approach (ICD-10-PCS; 2020-04-03)
PROC: 0JBN0ZZ Excision of Right Lower Leg Subcutaneous Tissue and Fascia, Open Approach (ICD-10-PCS; 2020-04-03 12:45)
PROC: B5181ZZ Fluoroscopy of Superior Vena Cava using Low Osmolar Contrast (ICD-10-PCS; 2020-04-03 12:45)
DX: T82.590A Other mechanical complication of surgically created arteriovenous fistula, initial encounter (principal); N18.6 End stage renal disease; I50.31 Acute diastolic (congestive) heart failure; I13.2 Hypertensive heart and chronic kidney disease with heart failure and with stage 5 chronic kidney disease, or end stage renal disease; L03.115 Cellulitis of right lower limb; E87.1 Hypo-osmolality and hyponatremia; R78.81 Bacteremia; I95.9 Hypotension, unspecified; E11.22 Type 2 diabetes mellitus with diabetic chronic kidney disease; Z99.2 Dependence on renal dialysis; S80.11XA Contusion of right lower leg, initial encounter; X58.XXXA Exposure to other specified factors, initial encounter; Y84.9 Medical procedure, unspecified as the cause of abnormal reaction of the patient, or of later complication, without mention of misadventure at the time of the procedure; L89.899 Pressure ulcer of other site, unspecified stage; D63.1 Anemia in chronic kidney disease; E66.01 Morbid (severe) obesity due to excess calories; Z68.39 Body mass index [BMI] 39.0-39.9, adult; R62.7 Adult failure to thrive

== ENCOUNTER 2020-04-10 20:12 | Inpatient (IN) | payer MEDICARE, BC ==
[~2020-04-10] VITALS: Ht 179.1 cm; Wt 127.7 kg
[2020-04-10 19:30] VITALS: BP 150/60
[~2020-04-10 20:12] MED LIST changes: +DAKIN'S 0.25%480 ML TOPICAL; +ELIQUIS2.5 MG PO; +MIDODRINE HCL5 MG PO; +MIRALAX17 GM PO; +[UNRECOGNIZED DRUG - OTHER] PD; +[UNRECOGNIZED DRUG - OTHER] PD
--- NOTE | 2020-04-10 20:44 | NUR ---
ADMIT THIS 64 FEMALE TO ROOM 1109 FOR PHYSICAL REHAB AND SERVICES OF DR LEMONS. AWAKE AND ALERT. RESPIRAITONS UNLABORED. NOTED RIGHT CHEST TRIALYSIS RELATED TO DIALYSIS. RIGHT ARM RESERVE RELATED TO RIGHT ARM FISTULA (NON WORKING) NOTED WOUNDS WITH DRESSINGS ON BUTTOCKS. WOUND VAC IN PLACE TO RIGHT KNEE. PATIENT ANURIC. ASSISTED TO BED AND CALL LIGHT IN REACH. SEE FULL ASSESSMENT ON ADMISSION ASSESMENT AND HISTORY.
[2020-04-10 22:57] VITALS: BP 150/60; BMI 39.1
[2020-04-11 00:05] VITALS: BP 120/43
--- NOTE | 2020-04-11 00:10 | NUR ---
RESTING IN BED WITH EYES CLOSED AND RESPRIATIONS UNLABORED. CONTACT ISOLATION IN PLACE. WOUND VAC IN PLACE TO RIGHT LEG. NO DISTRESS NOTED.
--- NOTE | 2020-04-11 05:06 | NUR ---
QUIET HOURS. NO ACUTE CHANGES IN CONDITION THIS SHIFT. NO DISTRESS NOTED. WOUND VAC INTACT TO RIGHT LOWER LEG. RIGHT CHEST TRIALYSIS IN PLACE. NO DISTRESS NOTED.
[2020-04-11 06:33] LABS: BASOPHILS 0.5 % (0-2); EOSINOPHILS 6.3 % (0-7); HEMATOCRIT 30.6 % (36.0-48.0); HEMOGLOBIN 9.5 g/dL (12-16); IMMATURE GRANULOCYTES 0.5 % (0-5); LYMPHOCYTES 15.8 % (15-50); MCH 30.1 pg (26.0-34.0); MEAN PLATELET VOLUME 11.2 fL (7.4-10.4); NEUTROPHILS 64.9 % (40-80); PLATELET COUNT 183 10x3/uL (130-400); RBC 3.16 10x6/uL (4.00-5.40); RDW 19.9 % (11.5-14.5); WBC 12.1 10x3/uL (4.8-10.8)
[2020-04-11 06:40] VITALS: BP 139/52
[2020-04-11 06:41] LABS: MCV 96.8 fL (80.0-100.0)
--- NOTE | 2020-04-11 06:42 | NUR ---
BLOOD SUGAR THIS AM 47. AWAKE AND ALERT. ORIENTED X 3. SKIN WARM AND DRY. HYPOGLYCEMIC PROTOCOL ORDERED AND ONE TUBE OF INSTAGLUCOSE GIVEN SL. WILL CONTINUE TO MONITOR. PHYSICAL THERAPY HERE WORKING WITH PATIENT.
[2020-04-11 06:58] LABS: ANION GAP 11.8 mmol/L (8-16); CALCIUM 9.1 mg/dL (8.5-10.1); CARBON DIOXIDE 25.3 mmol/L (21.0-32.0); POTASSIUM - SERUM 3.1 mmol/L (3.5-5.1)
[2020-04-11 07:03] LABS: CREATININE - SERUM 7.3 mg/dL (0.6-1.3)
--- NOTE | 2020-04-11 07:29 | NUR ---
BLOOD SUGAR NOW 71. ALERT AND ORIENTED. MESSAGE LEFT ON ROUNDING SHEET FOR DR LEMONS.
--- NOTE | 2020-04-11 08:00 | NUR ---
SHIFT ASSMT COMPLETED.
[2020-04-11 09:47] VITALS: Ht 179.1 cm; Wt 127.7 kg
[2020-04-11 12:00] VITALS: BP 140/42
--- NOTE | 2020-04-11 12:00 | NUR ---
SITTING UP IN BED EATING LUNCH.
--- NOTE | 2020-04-11 16:00 | NUR ---
REFUSES TO GET OUT OF BED.STATED MAYBE MONDAY.
[2020-04-11 17:56] VITALS: BP 130/50
--- NOTE | 2020-04-11 19:30 | NUR ---
AWAKE AND ALERT. INCONTINENT OF BM. CHANGED AND CLEANED UP. DRESSINGS TO BUTTOCKS CHANGED. REPIOSITIONED IN BED. PD CATHETER IN PLACE(NOT IN USE) RIGHT CHEST TRIALYSIS IN PLACE. WOUND VAC TO RIGHT CALF IN PLACE. IN CONTACT ISOLATION. CALL LIGHT IN REACH.
--- NOTE | 2020-04-11 22:15 | NUR ---
BLOOD SUGAR 307. PATIENT TOOK LANTUS BUT REFUSED HUMALOT STATING SHE DID NOT EAT SUPPER AND SHE WAS AFRAID SHE WOULD GET TOO LOW THROUGH THE NIGHT LIKE SHE DID THIS MORNING. I REVIWED WITH HER THAT HER GLUCOSE WAS MUCH HIGHER TONIGHT THAN THE NIGHT BEFORE BUT SHE STILL REFUSED THE HUMULOG. WILL RECHECK BLOOD SUGAR IN AM ORDERED.
[2020-04-12 00:03] VITALS: BP 153/61
--- NOTE | 2020-04-12 04:56 | NUR ---
QUIET HOURS. NO ACUTE CHANGES IN CONDITION THIS SHIFT. RESTING IN BED WITH NO DISTRESS NOTED. WOUND VAC IN PLACE. CALL LIGHT IN REACH. REMAINS IN CONTACT ISOLATION.
[2020-04-12 06:21] VITALS: BP 137/42
--- NOTE | 2020-04-12 08:00 | NUR ---
SHIFT ASSMT COMPLETED.
[2020-04-12 12:00] VITALS: BP 156/67
[2020-04-12 18:00] VITALS: BP 98/40
--- NOTE | 2020-04-12 19:33 | NUR ---
AWAKE AND ALERT. RESTING IN BED WITH RESPIRATIONS UNLABORED. RIGHT CHEST TRIALYSIS INTACT. WOUND VAC TO RIGHT LOWER LEG IN PLACE. NO ACUTE DISTRESS NOTED. CALL LIGHT IN REACH.
--- NOTE | 2020-04-13 00:10 | NUR ---
INCONTINENCE CARE GIVEN HAD DIARRHEA STOOL. BED LINENS CHANGED. RESPIRATIONS UNLABORED. NO DISTRESS NOTED.
[2020-04-13 00:19] VITALS: BP 98/62
[2020-04-13 05:15] VITALS: BP 93/49
--- NOTE | 2020-04-13 06:03 | NUR ---
QUIET HOURS. NO ACUTE CHANGES IN CONDITION THIS SHIFT. RIGHT CHEST TRIALYSIS IN PLACE. PD CATHETER IN PLACE. (NOT IN USE) NO DISTRESS NOTED.
[2020-04-13 06:19] LABS: BASOPHILS 0.3 % (0-2); EOSINOPHILS 4.1 % (0-7); HEMATOCRIT 29.7 % (36.0-48.0); IMMATURE GRANULOCYTES 0.4 % (0-5); LYMPHOCYTES 12.7 % (15-50); MCH 29.4 pg (26.0-34.0); MCHC 30.3 g/dL (31.0-37.0); MCV 97.1 fL (80.0-100.0); MEAN PLATELET VOLUME 11.6 fL (7.4-10.4); MONOCYTES 10.4 % (2-11); NEUTROPHILS 72.1 % (40-80); PLATELET COUNT 182 10x3/uL (130-400); RBC 3.06 10x6/uL (4.00-5.40); WBC 10.6 10x3/uL (4.8-10.8)
[2020-04-13 06:34] LABS: ANION GAP 12.9 mmol/L (8-16); CALCIUM 8.9 mg/dL (8.5-10.1); CREATININE - SERUM 7.3 mg/dL (0.6-1.3)
[2020-04-13 06:37] LABS: POTASSIUM - SERUM 2.9 mmol/L (3.5-5.1)
--- NOTE | 2020-04-13 07:31 | NUR ---
ALERT AND ORIENTED. NO C/O PAIN. CL IN REACH.
[2020-04-13 12:00] VITALS: BP 114/38
--- NOTE | 2020-04-13 12:20 | NUR ---
PARTICIPATED IN THERAPY. NO CHANGE IN ASSESSMENT. DRESSING CHANGED TO L HEEL.
--- NOTE | 2020-04-13 14:18 | NUR ---
CHANGED WOUND VAC CANISTER.
--- NOTE | 2020-04-13 15:08 | NUR ---
PATIENT ADMITTED TO REHAB FROM ACUTE FLOOR. DR. ESTEBAN IS HER PCP. DME AT HOME IS A WALKER, WHEELCHAIR AND A SHOWER BENCH. DISCHARGE PLANS ARE FOR HER TO RETURN TO HER HOME WITH HER SPOUSE. WILL CONTINUE TO FOLLOW WITH PATIENT.
--- NOTE | 2020-04-13 15:52 | NUR ---
PARTICIPATED IN THERAPY. NO CHANGE IN ASSESSMENT. NO C/O PAIN. RESTING AT THIS TIME. CL IN REACH.
[2020-04-13 18:34] VITALS: BP 147/88
--- NOTE | 2020-04-13 19:05 | NUR ---
RECEIVED REPORT PT LYING IN BED ON RIGHT SIDE AWAKE. ALERT AND ORIENTED X3. DENIES ANY NEEDS OR PAIN. RIGHT CALF WOUND VAC INTACT. CONTINUES ON 4L VIA NC. RIGHT CHEST TRIALYSIS LINE WITHOUT REDNESS OR SWELLING. DRESSING INTACT. CALL LIGHT WITHIN REACH. FALL PRECAUTIONS IN PLACE. CPOC
[2020-04-14 00:06] VITALS: BP 126/46
--- NOTE | 2020-04-14 00:49 | NUR ---
PT LYING IN BED ON LEFT SIDE EYES CLOSED RESTING. RR EVEN AND UNLABORED. CALL LIGHT WITHIN REACH. FALL PRECAUTIONS IN PLACE. CPOC
--- NOTE | 2020-04-14 03:37 | NUR ---
PT LYING IN BED ON RIGHT SIDE EYES CLOSED RESTING. RR EVEN AND UNLABORED. CALL LIGHT WITHIN REACH. FALL PRECAUTIONS IN PLACE. CPOC
[2020-04-14 06:12] VITALS: BP 122/52
[2020-04-14 12:21] VITALS: BP 150/57
--- NOTE | 2020-04-14 12:29 | NUR ---
RECIEVED CALL FROM [facility] ( BROWN CAST) TO FAX A FACE SHEET AND MED. REC.TO HIM. [phone]. RECORDS HAVE BEEN FAXED PER MR. CAST REQUEST.
--- NOTE | 2020-04-14 14:40 | NUR ---
Nutrition Follow-up: ESRD on HD TTS presently instead of her usual PD. Diet: Diabetic + Nepro with meals PO intake: ~29% average x last 6 meals Last BM: 04/14/20. WT: 287# (04/14/20); Admit Wt: 276# 04/10/20) Meds noted: K-dur, lantus, lasix, miralax, SSI. Labs noted: Na 134(L), K 2.9(L), BUN 20(H), Cr 7.3(H), GFR 6(L), POC Glu 415(H) Skin: right calf wound Recommend continue current diet and oral nutrition supplement. RD following.
--- NOTE | 2020-04-14 19:00 | NUR ---
RECEIVED PT LYING IN BED ON RIGHT SIDE AWAKE. ALERT AND ORIENTED X4. O2 SAT 96% ON ROOM AIR. WILL CONTINUE TO MONITOR SAT NO NEED FOR O2 AT THIS TIME. RIGHT CALF WOUND VAC INTACT AND PROPERLY FUNCTIONING. LEFT HEEL DRESSING INTACT. RIGHT CHEST TRIALYSIS CATH WITHOUT REDNESS. DRESSING INTACT. NO SIGNS OF ACUTE DISTRESS NOTED. CALL LIGHT WITHIN REACH. FALL PRECAUTIONS IN PLACE. CPOC
[2020-04-14 21:24] VITALS: BP 99/32
--- NOTE | 2020-04-15 02:00 | NUR ---
PT LYING IN BED EYES CLOSED RESTING QUIETLY. RR EVEN AND UNLABORED. CALL LIGHT WITHIN REACH. FALL PRECAUTIONS IN PLACE. CPOC
[2020-04-15 06:37] VITALS: BP 130/64
[2020-04-15 06:45] LABS: BASOPHILS 0.6 % (0-2); EOSINOPHILS 2.5 % (0-7); HEMATOCRIT 28.8 % (36.0-48.0); HEMOGLOBIN 8.8 g/dL (12-16); IMMATURE GRANULOCYTES 0.7 % (0-5); LYMPHOCYTES 15.4 % (15-50); MCH 29.5 pg (26.0-34.0); MCHC 30.6 g/dL (31.0-37.0); MCV 96.6 fL (80.0-100.0); MONOCYTES 12.7 % (2-11); NEUTROPHILS 68.1 % (40-80); PLATELET COUNT 189 10x3/uL (130-400); RBC 2.98 10x6/uL (4.00-5.40); RDW 20.4 % (11.5-14.5); WBC 8.6 10x3/uL (4.8-10.8)
[2020-04-15 06:55] LABS: ANION GAP 12.2 mmol/L (8-16); CALCIUM 8.6 mg/dL (8.5-10.1); CREATININE - SERUM 6.3 mg/dL (0.6-1.3); POTASSIUM - SERUM 4.2 mmol/L (3.5-5.1)
--- NOTE | 2020-04-15 07:57 | NUR ---
I have reviewed this patient and I concur with the Shift Assessment completed by the Licensed Practical Nurse today this shift.
--- NOTE | 2020-04-15 08:08 | NUR ---
SITTING UP IN BED EATING BREAKFAST, DENIES ANY NEEDS AT THIS TIME, C/L AND FLUIDS IN REACH.
[2020-04-15 11:23] VITALS: BP 121/45
--- NOTE | 2020-04-15 12:00 | NUR ---
UP IN W/C EATING LUNCH, DENIES ANY NEEDS AT THIS TIME, C/L AND FLUIDS IN REACH.
--- NOTE | 2020-04-15 12:25 | RHP ---
PATIENT: MONE HUSSEIN MEDICAL RECORD: [id number] ACCOUNT: [id number] [facility] [birth year] ADMISSION DATE: 04/10/20 REHABILITATION HISTORY AND PHYSICAL EXAMINATION POST ADMISSION PHYSICIAN EXAMINATION ADMITTING DIAGNOSIS: Disuse myopathy. HISTORY OF PRESENT ILLNESS: The patient is a 64-year-old obese female who recently was inpatient, had to be transferred to acute hospital due to fluid overload. She has been on hemodialysis. She has had a difficult time getting her fluids back down. She has a lower extremity cellulitis, nonhealing wound to her extremity with a lot of anasarca. She had been followed closely with neurology with hemodialysis. She has been followed by general surgery throughout her stay. She has had a wound VAC placement to her extremity and hemodialysis throughout her stay. She has had positive blood cultures, remained on contact isolation, has had prolonged hospital stay. She needs to be monitored closely with wound VAC and irrigation for healing area. She has to be watched closely for her volume overload. She has got a gait disturbance, limited safety awareness, medical complexity, risk for falls. These are all barriers to her discharged home. She would like to return home at her prior level of functioning or better. 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 She has had weakness. PAST MEDICAL HISTORY: Significant for anxiety, arterial occlusion, atrial flutter, chronic renal insufficiency, depression, diabetes, hyperlipidemia. PAST SURGICAL HISTORY: Includes electrical cardioversion. She has had hysterectomy, cholecystectomy, I&D, lumbar discectomy. She has had a hardware removal and also a trigger release. ALLERGIES: PENICILLIN, SULFA, PHISOHEX, LEVAQUIN AND TERRAMYCIN. CURRENT MEDICATIONS: Include heparin 2000 units prior to dialysis, she is on Lantus 20 units daily, isosorbide 30 mg daily, furosemide 40 mg daily, calcium carbonate 750 t.i.d., proamatine Monday, , Monday. She is on a glucose replacement protocol, Protonix 40 mg b.i.d., Requip 0.5 mg at bedtime, Lyrica 75 at bedtime, Nystatin ointment she applies daily, Eliquis 2.5 mg b.i.d., tramadol 50 mg every 8 hours p.r.n., Zofran 4 mg every 6 hours p.r.n. HABITS: No alcohol or tobacco use. FAMILY HISTORY: Noncontributory. SOCIAL HISTORY: The patient hopes to return back home and get back to her prior level of functioning. REVIEW OF SYSTEMS: GENERAL: Does complain of weakness and fatigue. HEENT: Denies cold, cough, or congestion. CARDIOVASCULAR: Denies chest pain. HISTORY AND PHYSICAL [id number] KEENANMONE YAIMA GROVES PHYSICAL EXAMINATION: VITAL SIGNS: Stable, afebrile. GENERAL: A morbidly obese female in no acute distress upon exam. HEENT: Normocephalic and atraumatic. Mucosa moist. NECK: Supple. No lymphadenopathy. LUNGS: Clear in upper patel. HEART: Regular rate and rhythm. ABDOMEN: Soft, benign, nondistended. Positive bowel sounds times 4. EXTREMITIES: No clubbing, cyanosis. Does have some edema and healing cellulitis as reported. NEUROLOGIC: Does have proximal muscle weakness. LABORATORY DATA: White count is 12.1, H&H of 9.5 and 30.6 and platelet count is 183. Sodium 135, potassium 3.1, BUN and creatinine of 15 and 7.3 and blood sugar is noted to be 45. ASSESSMENT: A 64-year-old female patient admitted to rehab with a working diagnosis of disuse myopathy. The patient has potential to make improvement. We instituted the following multidisciplinary therapies including, not limited to physical, occupational, respiratory, speech, nutritional services, prosthetics and orthotics. Given her complex medical condition and risks for more complications, rehabilitation services cannot be provided at a low level of care such a skilled nurse facility. PLAN: 1. Admit to [facility] for inpatient therapy to include the following disciplines: A. Physical therapy to improve gait, all transfer skills and bed mobility to a modified independent level. B. Occupational therapy to improve activities of daily living. C. Case management to help with discharge planning and placement options. D. Nutrition to assist with nutritional needs. E. Rehabilitation nursing to assist in monitoring the patient's underlying medical condition and to assist with any type or bowel or bladder management. 2. The patient's current medication and medical care will be continued. The patient will be placed on standard fall precautions. 3. We will continue on Eliquis. 4. I am going to see again in the a.m. TRANSINT:[id number] Voice Confirmation ID: [id number] DOCUMENT ID: [id number] SANG notes whether there has been none or any medical/functional change since admission: - No change since prescreen. SANG attests patient continues to be appropriate for IRF: - Continues to be appropriate. HISTORY AND PHYSICAL [id number] MONE HUSSEIN,DEE DEE DE LA FUENTE MD at 1225 CC: [id number] DICTATION DATE: 04/11/20 1448 DIRECTOR ONCOLOGY: 04/11/20 1946 ADM IN [facility] [address] [place] [address]
--- NOTE | 2020-04-15 14:28 | NUR ---
CARE TEAM MEETING: PATIENT IS PROGRESSING IN THERAPY. HER TENATIVE DISCHARGE DATE IS 04/24/20. WILL CONTINUE TO FOLLOW WITH PATIENT.
--- NOTE | 2020-04-15 16:30 | NUR ---
RESTING IN BED, DENIES ANY NEEDS AT THIS TIME, C/L AND FLUIDS IN REACH.
[2020-04-15 18:21] VITALS: BP 100/44
[2020-04-15 20:07] VITALS: BP 100/44
--- NOTE | 2020-04-15 20:16 | NUR ---
RESTING IN BED WITH RESPIRAITONS UNLABORED. RIGHT CHEST TRIALYSIS INTACT. 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 WOUND VAC INTACT TO RIGHT LOWER LEG. NO ACUTE DISTRESS NOTED. CALL LIGHT IN REACH.
[2020-04-16 00:21] VITALS: BP 140/60
--- NOTE | 2020-04-16 02:24 | NUR ---
RESTING IN BED WITH RESPRIAITONS UNLABORED. NO DISTRESS NOTED.
--- NOTE | 2020-04-16 05:10 | NUR ---
QUIET HOURS. NO ACUTE CHANGES IN CONDITION THIS SHIFT. REMAINS IN CONTACT ISOLATION.
[2020-04-16 06:35] VITALS: BP 145/53
--- NOTE | 2020-04-16 08:23 | NUR ---
PT RESTING IN BED WITH EYES OPEN CALL LIGHT IN REACH WILL MONITER
--- NOTE | 2020-04-16 12:00 | NUR ---
I have reviewed this patient and I concur with the Shift Assessment completed by the Licensed Practical Nurse today this shift.
[2020-04-16 12:03] VITALS: BP 153/63
--- NOTE | 2020-04-16 17:00 | NUR ---
PT ON DIALYSIS IN ROOM PER DIALYSIS NURSE NO PROBLEMS WILL MONITER
[2020-04-16 18:16] VITALS: BP 139/55
--- NOTE | 2020-04-16 19:42 | NUR ---
AWAKE AND ALERT. RESTING IN BED WITH RESPRIATIONS UNLABORED. IN CONTACT ISOLATION. RIGHT CHEST TRIALYSIS INTACT. WOUND VAC TO RIGHT LOWER LEG INTACT. NO DISTRESS NOTED. CALL LIGHT IN REACH.
[2020-04-16 21:19] VITALS: BP 139/55
--- NOTE | 2020-04-17 01:03 | NUR ---
SLEEPING WITH RESPIRATIONS UNLABORED. NO DISTRESS NOTED.
[2020-04-17 06:06] VITALS: BP 119/77
--- NOTE | 2020-04-17 06:37 | NUR ---
QUIET HOURS. NO ACUTE CHANGES IN CONDITION THIS SHIFT. RESTING IN BED WITH RESPIRAITONS UNLABORED. WOUND VAC IN PLACE TO RIGHT LEG. RIGHT CHEST TRIALYSIS IN PLACE.
[2020-04-17 06:47] LABS: BASOPHILS 0.8 % (0-2); EOSINOPHILS 3.3 % (0-7); HEMATOCRIT 30.7 % (36.0-48.0); HEMOGLOBIN 9.2 g/dL (12-16); IMMATURE GRANULOCYTES 0.6 % (0-5); LYMPHOCYTES 14.6 % (15-50); MCH 29.3 pg (26.0-34.0); MCV 97.8 fL (80.0-100.0); MONOCYTES 11.1 % (2-11); NEUTROPHILS 69.6 % (40-80); PLATELET COUNT 204 10x3/uL (130-400); RBC 3.14 10x6/uL (4.00-5.40); RDW 21.2 % (11.5-14.5); WBC 8.5 10x3/uL (4.8-10.8)
[2020-04-17 06:58] LABS: ALBUMIN 1.8 g/dL (3.4-5.0); ANION GAP 8.6 mmol/L (8-16); BILIRUBIN - TOTAL 0.36 mg/dL (0.2-1.3); CALCIUM 9.1 mg/dL (8.5-10.1); CARBON DIOXIDE 27.2 mmol/L (21.0-32.0); CREATININE - SERUM 5.5 mg/dL (0.6-1.3); POTASSIUM - SERUM 4.8 mmol/L (3.5-5.1); PROTEIN - SERUM 5.4 g/dL (6.4-8.2)
[2020-04-17 07:56] VITALS: BP 143/54
--- NOTE | 2020-04-17 13:45 | NUR ---
Nutrition Follow-up: Received nutrition consult from nephology 2/2 patient with low alb, need for more protein intake. PO intake was 100% x 3 meals yesterday. Patient states drinking Nepro TID. Will add Proteinex once daily for an additional 15gms/day. If patient does well with this may consider increasing to BID. RD following.
--- NOTE | 2020-04-17 15:32 | NUR ---
PT'S PD DONE PER ORDER. 1000 ML 2.5 DIALYSIS FLUID INSTILLED, 1000 UNITS HEPARIN ADDED. DWELLED FOR 30 MINUTES THEN DRAINED, 700 ML OUT. FLUID WAS LIGHT YELLOW IN COLOR. WOUND VAC ALSO CHANGED AT THIS TIME.
[2020-04-17 17:43] VITALS: BP 134/63
--- NOTE | 2020-04-17 19:06 | NUR ---
RECEIVED PT LYING IN BED EYES CLOSED RESTING. EASILY AROUSED WITH VERBAL STIMULI. NO SIGNS OF ACUTE DISTRESS NOTED. RIGHT LOWER EXTERMITY WOUND VAC INTACT. CALL LIGHT AND WATER WITHIN REACH. FALL PRECAUTIONS IN PLACE. CPOC
[2020-04-17 22:02] VITALS: BP 133/54
--- NOTE | 2020-04-18 01:06 | NUR ---
PT LYING IN BED EYES CLOSED RESTING. RR EVEN AND UNLABORED. CALL LIGHT WITHIN REACH. FALL PRECAUTIONS IN PLACE. CPOC
--- NOTE | 2020-04-18 04:00 | NUR ---
PT LYING IN BED ON RIGHT SIDE EYES CLOSED RESTING. RR EVEN AND UNLABORED. CALL LIGHT WITHIN REACH. WILL CONTINUE TO MONITOR
[2020-04-18 06:25] VITALS: BP 151/61
--- NOTE | 2020-04-18 08:00 | NUR ---
SITTING UP IN BED EATING BREAKFAST, DENIES ANY NEEDS AT THIS TIME, C/L AND FLUIDS IN REACH.
--- NOTE | 2020-04-18 11:59 | NUR ---
RESTING IN BED, DENIES ANY NEEDS AT THIS TIME, C/L AND FLUIDS IN REACH.
--- NOTE | 2020-04-18 16:11 | NUR ---
RESTING IN BED RECEIVING DIALYSIS, DIALYSIS NURSE AT BEDSIDE, DENIES ANY NEEDS AT THIS TIME, C/L AND FLUIDS IN REACH.
[2020-04-18 18:01] VITALS: BP 129/63
--- NOTE | 2020-04-18 19:10 | NUR ---
RECEIVED PT LYING IN BED RECEIVING DIALYSIS. APPEARS TO BE RESTING. VS STABLE PER QASIM DIALYSIS NURSE. NO SIGNS OF ACUTE DISTRESS NOTED. WILL CONTINUE TO MONITOR
--- NOTE | 2020-04-18 22:40 | NUR ---
REMOVED OLD DRESSING FROM LEFT HEEL. SCANT AMOUNT OF SEROSANGUINEOUS FLUID ON DRESSING. DRY-SCALY SKIN, AND ESCHAR NOTED. CLEANSED WITH WOUND CLEANSER, PATTED DRY WITH 4X4, COVERED WITH 4X4 AND CUSHIONED MEPILEX, WRAPPED WITH KERLIX AND SECURED WITH MEDIPORE TAPE. DATE, TIME, AND INITIALED DRESSING. PT TOLERATED WELL. REPOSITIONED PT TO LEFT SIDE. DENIES ANY OTHER NEEDS. CALL LIGHT WITHIN REACH. FALL PRECAUTIONS IN PLACE. CPOC
[2020-04-19 00:50] VITALS: BP 142/58
--- NOTE | 2020-04-19 00:50 | NUR ---
PT LYING IN BED ASLEEP. WHILE CHECKING VS PT O2 SAT 88-89% HAD PT TAKE IN SOME DEEP BREATHS STILL NO IMPROVEMENT PLACED PT ON 3L PER STANDING ORDER. PT IS NOW 96% ON 3L O2 VIA NC. WILL CONTINUE TO MONITOR
--- NOTE | 2020-04-19 01:14 | NUR ---
PT LYING IN BED SUPINE EYES CLOSED RESTING. HOB ELEVATED. CONTINUES ON 3L VIA NC. O2 SAT 95% WILL CONTINUE TO MONITOR
--- NOTE | 2020-04-19 03:10 | NUR ---
REPOSITIONED PT TO RIGHT SIDE. DENIES ANY OTHER NEEDS. NO SIGNS OF ACUTE DISTRESS NOTED. CALL LIGHT WITHIN REACH. WILL CONTINUE TO MONITOR
[2020-04-19 06:10] VITALS: BP 159/57
--- NOTE | 2020-04-19 06:25 | NUR ---
PT LYING BED ON RIGHT SIDE EYES CLOSED RESTING. NO ACUTE CHANGES NOTED THIS SHIFT. CALL LIGHT WITHIN REACH. FALL PRECAUTIONS IN PLACE. CPOC
--- NOTE | 2020-04-19 08:06 | NUR ---
SITTING UP IN BED EATING BREAKFAST, DENIES ANY NEEDS AT THIS TIME, C/L AND FLUIDS IN REACH.
--- NOTE | 2020-04-19 12:00 | NUR ---
SITTING UP IN BED, DENIES ANY NEEDS AT THIS TIME, C/L AND FLUIDS IN REACH.
[2020-04-19 12:09] VITALS: BP 152/66
--- NOTE | 2020-04-19 16:04 | NUR ---
RESTING IN BED WATCHING TV, DENIES ANY NEEDS AT THIS TIME, C/L AND FLUIDS IN REACH.
[2020-04-19 18:07] VITALS: BP 131/47
[2020-04-19 21:04] VITALS: BP 128/60
--- NOTE | 2020-04-19 21:50 | NUR ---
RECEIVED PT LYING IN BED SUPINE. HOB ELEVATED. ALERT AND ORIENTED X4. DENIES ANY NEEDS OR PAIN. NO SIGNS OF ACUTE DISTRESS NOTED. VS STABLE. SHIFT ASSESSMENT COMPLETE. LEFT CALF WOUND VAC INTACT FUNCTIONING PROPERLY. BS 445. PT IS ASYMPTOMATIC REGARDING BS. PT STATES SHE IS NOT RECEIVING ENOUGH HUMALOG SHE IS ON A HIGHER SCALE AT HOME DURING HER HOSPITAL STAY SHE HAS BEEN ON THE LOW RESISTANCE SCALE. WILL ADDRESS THIS WITH DR. LEMONS IN THE AM. HS MEDS ADMININSTERED. CALL LIGHT AND WATER WITHIN REACH. FALL PRECAUTIONS IN PLACE. CPOC
--- NOTE | 2020-04-20 01:58 | NUR ---
PT LYING IN BED EYES CLOSED RESTING. NO SIGNS OF ACUTE DISTRESS NOTED. BS 243. WILL CONTINUE TO MONITOR
--- NOTE | 2020-04-20 02:47 | NUR ---
PT LYING IN BED SUPINE EYES CLOSED RESTING. RR EVEN AND UNLABORED. O2 SAT STABLE ON ROOM AIR. CALL LIGHT WITHIN REACH. FALL PRECAUTIONS IN PLACE. CPOC
--- NOTE | 2020-04-20 03:50 | NUR ---
BS 219
[2020-04-20 06:21] VITALS: BP 149/84
[2020-04-20 07:14] LABS: BASOPHILS 0.4 % (0-2); EOSINOPHILS 3.8 % (0-7); HEMATOCRIT 31.3 % (36.0-48.0); HEMOGLOBIN 9.6 g/dL (12-16); IMMATURE GRANULOCYTES 0.4 % (0-5); LYMPHOCYTES 15.1 % (15-50); MCH 30.4 pg (26.0-34.0); MCHC 30.7 g/dL (31.0-37.0); MCV 99.1 fL (80.0-100.0); MEAN PLATELET VOLUME 11.7 fL (7.4-10.4); NEUTROPHILS 71.3 % (40-80); PLATELET COUNT 232 10x3/uL (130-400); RBC 3.16 10x6/uL (4.00-5.40); RDW 20.7 % (11.5-14.5); WBC 11.2 10x3/uL (4.8-10.8)
[2020-04-20 07:23] LABS: CALCIUM 8.9 mg/dL (8.5-10.1); CARBON DIOXIDE 26.5 mmol/L (21.0-32.0); CREATININE - SERUM 6.2 mg/dL (0.6-1.3); POTASSIUM - SERUM 5.5 mmol/L (3.5-5.1)
--- NOTE | 2020-04-20 08:01 | NUR ---
SITTING UP IN BED EATING BREAKFAST, DENIES ANY NEEDS AT THIS TIME, C/L AND FLUIDS IN REACH.
--- NOTE | 2020-04-20 12:00 | NUR ---
SITTING UP IN BED EATING LUNCH, DENIES ANY NEEDS AT THIS TIME, C/L AND FLUIDS IN REACH.
[2020-04-20 12:08] VITALS: BP 141/62
--- NOTE | 2020-04-20 13:57 | NUR ---
I have reviewed this patient and I concur with the Shift Assessment completed by the Licensed Practical Nurse today this shift.
--- NOTE | 2020-04-20 16:15 | NUR ---
RESTING IN BED WITH AT BEDSIDE, DENIES ANY NEEDS AT THIS TIME, C/L AND FLUIDS IN REACH.
[2020-04-20 18:11] VITALS: BP 98/30
[2020-04-20 18:32] VITALS: BP 143/53
--- NOTE | 2020-04-20 18:50 | NUR ---
RECEIVED PT LYING IN BED AWAKE. ALERT AND ORIENTED X4. DENIES ANY NEEDS OR PAIN. NO SIGNS OF ACUTE DISTRESS NOTED. VS STABLE. RIGHT CALF WOUND VAC INTACT FUNCTIONING PROPERLY. CALL LIGHT AND WATER WITHIN REACH. FALL PRECAUTIONS IN PLACE. CPOC
[2020-04-20 19:27] VITALS: BP 98/30
--- NOTE | 2020-04-20 23:13 | NUR ---
PT LYING IN BED ON RIGHT SIDE EYES CLOSED RESTING. NO SIGNS OF ACUTE DISTRESS NOTED. CALL LIGHT WITHIN REACH. BS 197. WILL CONTINUE TO MONITOR
[2020-04-21 01:17] VITALS: BP 128/58
--- NOTE | 2020-04-21 01:19 | NUR ---
PT LYING IN BED ON LEFT SIDE EYES CLOSED RESTING. RR EVEN AND UNLABORED. WILL CONTINUE TO MONITOR
--- NOTE | 2020-04-21 04:26 | NUR ---
PT LYING IN BED SUPINE EYES CLOSED RESTING. BS 147. NO ACUTE CHANGES IN CONDITION THIS SHIFT. CALL LIGHT WITHIN REACH. WILL CONTINUE TO MONITOR
[2020-04-21 06:04] VITALS: BP 124/70
[2020-04-21 06:24] LABS: ALBUMIN 1.5 g/dL (3.4-5.0); ANION GAP 11.1 mmol/L (8-16); BILIRUBIN - TOTAL 0.37 mg/dL (0.2-1.3); CALCIUM 9.5 mg/dL (8.5-10.1); CARBON DIOXIDE 25.2 mmol/L (21.0-32.0); CREATININE - SERUM 7.5 mg/dL (0.6-1.3); PHOSPHOROUS 2.1 mg/dL (2.5-4.9); POTASSIUM - SERUM 5.3 mmol/L (3.5-5.1); PROTEIN - SERUM 5.1 g/dL (6.4-8.2)
[2020-04-21 06:31] LABS: BASOPHILS 0.6 % (0-2); EOSINOPHILS 4.8 % (0-7); HEMATOCRIT 29.4 % (36.0-48.0); HEMOGLOBIN 8.9 g/dL (12-16); IMMATURE GRANULOCYTES 0.5 % (0-5); LYMPHOCYTES 15.8 % (15-50); MCH 29.5 pg (26.0-34.0); MCHC 30.3 g/dL (31.0-37.0); MCV 97.4 fL (80.0-100.0); MEAN PLATELET VOLUME 11.7 fL (7.4-10.4); MONOCYTES 8.7 % (2-11); NEUTROPHILS 69.6 % (40-80); PLATELET COUNT 224 10x3/uL (130-400); RBC 3.02 10x6/uL (4.00-5.40); RDW 20.8 % (11.5-14.5); WBC 10.9 10x3/uL (4.8-10.8)
--- NOTE | 2020-04-21 07:58 | NUR ---
SITTING UP IN BED EATING BREAKFAST, DENIES ANY NEEDS AT THIS TIME, C/L AND FLUIDS IN REACH.
--- NOTE | 2020-04-21 12:01 | NUR ---
SITTING UP IN W/C, DENIES ANY NEEDS AT THIS TIME, C/L AND FLUIDS IN REACH.
[2020-04-21 12:07] VITALS: BP 110/47
--- NOTE | 2020-04-21 12:41 | NUR ---
Nutrition Follow-up: Continues on HD TTS. Diet: Renal ADA + Nepro TID + Proteinex 30mL daily PO intake: ~50% average x last 9 meals. Spoke with patient's nurse who states that patient is drinking Nepro and has been drinking Proteinex daily. Last BM: 04/20/20 x 2. Wt: 283# (04/21/20); Admit wt: 275.5# (04/10/20) Meds noted: lantus, lasix, miralax, SSI. Labs noted: Na 134(L), K 5.3(H), BUN 43(H), Cr 7.5(H), GFR 6(L), Glu 181(H), PO4 2.1(L), Alb 1.5(L) Skin: PU to right calf wound with wound VAC, L heel, and buttocks Recommend continue current diet and oral nutrition supplements. Will increase Proteinex to BID. Nepro + Proteinex nutrition supplements to provide an additional 87gms protein per day. Total daily protein goal is 100-120gms/day. Encourage PO intake at meal times. RD following.
--- NOTE | 2020-04-21 13:00 | NUR ---
I have reviewed this patient and I concur with the Shift Assessment completed by the Licensed Practical Nurse today this shift.
--- NOTE | 2020-04-21 15:24 | NUR ---
PT LYING IN BED. DIALYSIS AT BEDSIDE AT THIS TIME. PT DENIES NEEDS. CALL LIGHT IN REACH. NO S/S OF DISTRESS. WILLIAN
--- NOTE | 2020-04-21 18:55 | NUR ---
RECEIVED PT LYING IN BED. ALERT AND ORIENTED X4. DENIES ANY NEEDS OR PAIN. NO SIGNS OF ACUTE DISTRESS NOTED. RIGHT CALF WOUND VAC FUNCTIONING PROPERLY. CALL LIGHT WITHIN REACH. FALL PRECAUTIONS IN PLACE. CPOC
[2020-04-21 21:07] VITALS: BP 130/41
--- NOTE | 2020-04-22 00:23 | NUR ---
PT LYING IN BED ON LEFT SIDE EYES CLOSED RESTING. RR EVEN AND UNLABORED. CALL LIGHT WITHIN REACH. FALL PRECAUTIONS IN PLACE. CPOC
--- NOTE | 2020-04-22 05:00 | NUR ---
RECOVERY AUDITOR IN ROOM REQUESTING LINE DRAW. FLUSHED 10ML NS IN PURPLE PORT, REMOVED 10ML BLOOD TO DISCARD, CLEANSED PORT AND REMOVED 10ML BLOOD PER LAB REQUEST. FLUSHED WITH 10ML NS. SWAB CAB PLACED.
[2020-04-22 06:13] VITALS: BP 142/47
[2020-04-22 06:42] LABS: BASOPHILS 0.4 % (0-2); EOSINOPHILS 1.8 % (0-7); HEMOGLOBIN 8.6 g/dL (12-16); IMMATURE GRANULOCYTES 0.3 % (0-5); LYMPHOCYTES 13.7 % (15-50); MCH 28.8 pg (26.0-34.0); MCHC 29.7 g/dL (31.0-37.0); MEAN PLATELET VOLUME 11.6 fL (7.4-10.4); MONOCYTES 10.3 % (2-11); NEUTROPHILS 73.5 % (40-80); PLATELET COUNT 213 10x3/uL (130-400); RBC 2.99 10x6/uL (4.00-5.40); RDW 20.5 % (11.5-14.5)
[2020-04-22 06:49] LABS: ALBUMIN 1.6 g/dL (3.4-5.0); BILIRUBIN - TOTAL 0.34 mg/dL (0.2-1.3); CALCIUM 8.6 mg/dL (8.5-10.1); CARBON DIOXIDE 28.2 mmol/L (21.0-32.0); PROTEIN - SERUM 4.7 g/dL (6.4-8.2)
[2020-04-22 06:50] LABS: ANION GAP 9.6 mmol/L (8-16); CREATININE - SERUM 5.3 mg/dL (0.6-1.3); POTASSIUM - SERUM 3.8 mmol/L (3.5-5.1)
--- NOTE | 2020-04-22 08:00 | NUR ---
PT RESTING IN BED WITH EYES OPEN CALL LIGHT IN REACH WILL MONITER
--- NOTE | 2020-04-22 08:12 | NUR ---
I have reviewed this patient and I concur with the Shift Assessment completed by the Licensed Practical Nurse today this shift.
[2020-04-22 12:04] VITALS: BP 143/59
--- NOTE | 2020-04-22 14:03 | NUR ---
WOUND CARE STARTED PER DR CEBALLOS ORDER WOUND TO LEFT HEEL IS 3INCHX 3 INCH WOUND IS BLACK WITH ESCAR AND YELLOW SLUFF FOUL ODOR COMING FROM WOUND WILL DO WOUND CARE ORDER DR STOUT OFFICE WAS CALLED AND NOTIFED OF CONSULT
--- NOTE | 2020-04-22 15:30 | NUR ---
WOUND CARE PERFORMED TO RIGHT POSTERIOR CALF.CLEANSED WITH WND CLEANSER.PAT DRY WITH 4X4'S.MEASUREMENTS;7.8CM L X 5CM W X 0.5CM .WND BED PINK WITH SURROUNDING AREA MASURATED.WND VAC APPLIED.
--- NOTE | 2020-04-22 18:06 | NUR ---
DR HERRMANN IN PTS ROOM LOOKED AT LEFT HEEL AND TRIMMED SOME LOOSE SKIN AND TRIMMED TOENAILS PT TOLERATED WELL
--- NOTE | 2020-04-22 19:42 | NUR ---
AWAKE AND ALERT. RESTING IN BED WITH RESPIRATIONS UNLABORED. WOUND VAC TO RIGHT LOWER LEG INTACT. DRESSING TO LEFT HEEL INTACT. IN CONTACT ISOLATION. RIGHT CHEST TRIALYSIS IN PLACE. NO ACUTE DISTRESS NOTED. CALL LIGHT IN REACH.
--- NOTE | 2020-04-22 20:46 | NUR ---
BLOOD CULTURE 1 DRAWN PER SECTION CREWS ACTIVITIES CLERK. I JOCELIN 2ND BLOOD CULTURE FROM TRIALYSIS AND TOOK TO LAB.
[2020-04-22 21:15] VITALS: BP 115/30
--- NOTE | 2020-04-22 21:40 | NUR ---
GLUCOSE MONITOR SHOWS 516, PATIENT RECHECKED BLOOD SUGAR PER HER IMPLANTED MONITOR AND BS WAS 468. TREATED PER SLIDING SCALE AND MESSAGE LEFT FOR DR LEMONS ON ROUNDING SHEET.
--- NOTE | 2020-04-22 22:16 | NUR ---
WOUND CARE DONE TO LEFT FOOT ORDERED WITH DAKINS WET TO DRY DRESSING.
--- NOTE | 2020-04-23 01:29 | NUR ---
RESTING IN BED WITH NO DISTRESS NOTED. REMAINS IN CONTACT ISOLATION.
[2020-04-23 06:16] VITALS: BP 164/62
--- NOTE | 2020-04-23 06:51 | NUR ---
DR MORENO ROUNDED. AWARE OF BLOOD SUGARS AND PENDING DISCHARGE FROM REHAB. PD CATHETER CLEANED AND ANTIBIOTIC OINTMENT APPLIED AND SITE COVERED. NO ACUTE DISTRESS NOTED. POSITIVE CULTURES CALLED TO ME FROM LAB. DR NUR NOTIFIED.
[2020-04-23 07:18] LABS: ALBUMIN 1.7 g/dL (3.4-5.0); ANION GAP 10.9 mmol/L (8-16); BILIRUBIN - TOTAL 0.43 mg/dL (0.2-1.3); CALCIUM 8.7 mg/dL (8.5-10.1); CARBON DIOXIDE 26.9 mmol/L (21.0-32.0); CREATININE - SERUM 6.9 mg/dL (0.6-1.3); PHOSPHOROUS 2.3 mg/dL (2.5-4.9); POTASSIUM - SERUM 3.8 mmol/L (3.5-5.1); PROTEIN - SERUM 5.5 g/dL (6.4-8.2)
[2020-04-23 07:42] LABS: BASOPHILS 0.3 % (0-2); EOSINOPHILS 2.2 % (0-7); HEMATOCRIT 27.8 % (36.0-48.0); HEMOGLOBIN 8.8 g/dL (12-16); IMMATURE GRANULOCYTES 0.4 % (0-5); LYMPHOCYTES 10.7 % (15-50); MCH 29.9 pg (26.0-34.0); MCHC 31.7 g/dL (31.0-37.0); MCV 94.6 fL (80.0-100.0); MONOCYTES 7.8 % (2-11); NEUTROPHILS 78.6 % (40-80); PLATELET COUNT 240 10x3/uL (130-400); RBC 2.94 10x6/uL (4.00-5.40); RDW 19.7 % (11.5-14.5); WBC 13.2 10x3/uL (4.8-10.8)
[2020-04-23 07:46] LABS: % SATURATION 25 % (15-55); IRON 20 ug/dl (35-150); TOTAL IRON BIND CAPACITY 79 ug/dl (260-445); UNSAT IRON BIND CAPACITY 59 ug/dl (150-375)
--- NOTE | 2020-04-23 08:00 | NUR ---
PT RESTING IN BED WITH EYES OPEN CALL LIGHT IN REACH NO PROBLEMS WILL MONITER
--- NOTE | 2020-04-23 09:19 | NUR ---
PATIENT WILL BE DISCHARGED BACK TO ACUTE FLOOR DUE TO PENDING SURGERY.
[2020-04-23] MEDS ORDERED: GENTAMICIN SULF30 G1 TOPICAL (11:27)
[2020-04-23] MEDS ORDERED: DAKIN'S 0.125%480 M1 TOPICAL (11:28)
[2020-04-23] MEDS ORDERED: LEVOFLOXAC500 MG/100 (11:31)
[2020-04-23] MEDS ORDERED: VANCOMYCIN H1 G/VIA1 IV (11:35)
[2020-04-23] MEDS ORDERED: HUMALOG 30100 UNITS/ SC (11:38)
[2020-04-23 12:44] VITALS: BP 117/52
--- NOTE | 2020-04-23 17:34 | NUR ---
PT ON DIALYSIS IN ROOM AFTER DIALYSIS PT WILL BE TRANSFERED TO ACUTE CARE
[2020-04-23 18:05] VITALS: BP 129/62
== END 2020-04-23 18:42 | disposition short-term general hospital (02) | DRG 91 ==
LOC: D.REHAB 20:12
PROVIDERS: Internal Medicine; ADMIT Emergency Medicine; ATTEND Emergency Medicine
DX: G72.89 Other specified myopathies (principal); N18.6 End stage renal disease; L97.422 Non-pressure chronic ulcer of left heel and midfoot with fat layer exposed; L03.115 Cellulitis of right lower limb; K92.0 Hematemesis; E11.22 Type 2 diabetes mellitus with diabetic chronic kidney disease; R60.1 Generalized edema; R50.9 Fever, unspecified; I95.89 Other hypotension; E87.6 Hypokalemia; R53.1 Weakness; E78.5 Hyperlipidemia, unspecified; D63.1 Anemia in chronic kidney disease

== ENCOUNTER 2020-04-23 18:58 | Inpatient (IN) | payer MEDICARE, BC ==
[~2020-04-23] VITALS: Ht 179.1 cm; Wt 127.5 kg
--- NOTE | ~2020-04-23 | HEMODYNAMI ---
PATIENT:MONE HUSSEIN MEDICAL RECORD: [id number] : 59 LOCATION:[facility] D.2104 ADMISSION DATE: 04/23/20 Generatedon:05/04/202010:36 Patient name: MONE HUSSEIN Patient #: [id number] SSN: : 1955 Date of study: 05/04/2020 Page: Of Hemodynamic Procedure Report Patient Data Patient Demographics Procedure consent was obtained First Name: MONE Gender: Female Last Name: KEENAN : 1955 [facility] Initial: YAIMA Age: 64 year(s) DL Race: Unknown Patient #: [id number] Additional ID: [id number] Contact details [address]: [address] [place] [address] State: [place] City: [place] Zip code: [address] Past Medical History Allergies Allergen Reaction Date Comments Reported Penicillins 05/04/2020 Sulfa drugs 05/04/2020 Admission Admission Data Admission Date: 04/23/2020 Admission Time: 18:59 Room #: D.2104 Height (in.): 70 BSA: 2.41 (m2) Height (cm.): 177.8 BMI: 40.18 (kg/m2) Weight (lbs.): 280 Weight (kg.): 127.01 Procedure Procedure Types Cath Procedure Peripheral Cath Diagnostic 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76 (ml/min) O2 Consumption indexed : Estimated:136 (ml/min/m) Pre Cath Intra NCS Post Cath Procedure Log Time Note 9:57:18 Patient Height : 70 inches 9:57:24 Patient Weight : 280 lbs 9:57:56 Use device set IR Diagnostic 9:57:57 Tegaderm 4 x 4 ([id number]) opened to sterile field. 9:57:58 Sterile Angiographic Pack opened to sterile field. 9:57:59 Bag Decanter (2002S) opened to sterile field. 9:58:05 Time tracking: Regular hours (M-F 7:00 - 5:00) 9:58:23 Plan of Care:Hemodynamics will remain stable., Cardiac rhythm will remain stable., Comfort level will be maintained., Respiratory function will remain adequate., Patient/ family verbilizes understanding of procedure., Procedure tolerated without complication., Recovers from procedure without complications.. 9:58:28 Patient received from [employer] Interactive II to IR Alert and oriented. Tansferred to table in Supine position. 9:58:31 Signed procedure consent form obtained from patient. 9:58:37 H&P Date Dictated: 05/04/2020 Within 30 days and on chart.. 9:58:40 Pre-procedure instructions explained to patient. 9:58:40 Pre-op teaching completed and patient verbalized understanding. 9:58:42 Family unavailable. 9:58:45 Patient NPO since Midnight. 9:58:57 Patient allergic to Penicillins 9:59:04 Patient allergic to Sulfa drugs 9:59:23 Is the patient allergic to Iodine/contrast media? No. 9:59:39 Is patient on blood thinner?Yes 9:59:44 ACC The patient was administered the following blood thiners within the last 24 hours: Oralia 9:59:57 Patient diabetic? Yes. 10:00:09 - 10:00:23 Left abdomen area was prepped with chlora-prep and draped in sterile fashion 10:20:36 Physician arrived 10:20:37 --------ALL STOP TIME OUT------ 10:20:38 Final Timeout: patient, procedure, and site verified with staff and physician. All members of the team are in agreement. 10:25:20 Procedure started. 10:25:21 Full Disclosure recording started 10:26:26 GLIDE WIRE Super Stiff Angled 260cm ([id number]) opened to sterile field. 10:34:21 Procedure ended.(Physican Out) 10:34:34 Fluoroscopy time 01.10 minutes. 10:34:38 Flurop Dose total: 40 10:34:38 Fluoroscopy dose: 40 mGy 10:34:52 Contrast amount:Isovue 300 20ml. 10:34:55 Procedure and supply charges have been captured, reviewed, submitted an d are correct. 10:36:10 Report given to Med II. Device Usage Item Name Manufacture Quantity Catalog Hospital Part Current Minimal Lot# / Number Charge Number Stock Stock Serial# Code Tegaderm 4 x 3M 1 [id number] 4 (1626W) Sterile Cardinal 1 [id number] 5 Angiographic Health Pack Bag Decanter Microtek 1 2001S [id number] 5 (2001S) [employer] GLIDE WIRE Terumo 1 [id number] 5 Super Stiff Angled 260cm ([id number]) Signature Audit [place] Stage Time Signature Unsigned Intra-Procedure 05/04/2020 Shaina Cedeno 10:36:36 AM RT(R) [facility] [address] [place] [address]
[~2020-04-23 18:58] MED LIST changes: +DAKIN'S 0.125%480 M1 TOPICAL; +GENTAMICIN SULF30 G1 TOPICAL; +LEVOFLOXAC500 MG/100; +VANCOMYCIN H1 G/VIA1 IV
[2020-04-23 20:00] VITALS: BP 128/80
[2020-04-23 22:43] VITALS: BP 128/80
--- NOTE | 2020-04-23 23:51 | NUR ---
PATIENT IS RUNNING A FEVER OF 102.2. I GAVE PREOP TYLENOL. I CALL MISS BROWN NARAYAN WHO ORDERED TYLENOL EVERY 4 HOURS, AND TELE FOR SINUS TACH.
[2020-04-24] VITALS: BP 149/77
[2020-04-24 04:00] VITALS: BP 122/47
--- NOTE | 2020-04-24 04:08 | NUR ---
PATIENT IS SLEEEPING IN BED. SHE IS ON TELE. SHE IS ON 2 LITERS NASAL CANULA. HER TEMPERATURE HAS COME DOWN. WE WILL CONTINUE TO MONITOR HER TEMPERATURE, AND HER HEART RATE.
[2020-04-24 05:16] LABS: HEMATOCRIT 28.2 % (36.0-48.0); HEMOGLOBIN 8.6 g/dL (12-16); MCH 29.4 pg (26.0-34.0); MCHC 30.5 g/dL (31.0-37.0); MCV 96.2 fL (80.0-100.0); MEAN PLATELET VOLUME 11.8 fL (7.4-10.4); PLATELET COUNT 214 10x3/uL (130-400); RBC 2.93 10x6/uL (4.00-5.40); RDW 20.2 % (11.5-14.5)
[2020-04-24 05:31] LABS: ANION GAP 11.1 mmol/L (8-16); CALCIUM 8.5 mg/dL (8.5-10.1); CARBON DIOXIDE 27.3 mmol/L (21.0-32.0); POTASSIUM - SERUM 3.4 mmol/L (3.5-5.1)
[2020-04-24 05:38] LABS: CREATININE - SERUM 4.8 mg/dL (0.6-1.3)
[2020-04-24 05:53] LABS: LYMPHOCYTES 2 % (15-50); NEUTROPHILS 95 % (40-80); PLATELET ESTIMATE NORMAL
--- NOTE | 2020-04-24 07:22 | NUR ---
WALKING ROUNDS COMPLETE, PT LAYING IN BED, WOUND VAC SECURE TO RIGHT LEG, DRESSING TO LEFT FOOT SECURE, HEMOSPLIT DRESSING DRY AND INTACT OT RIGHT CHEST WALL, PT DENIES PAIN OR NEEDS AT THIS TIME, PT IS AWARE OF BEING NPO FOR SURGERY, ALL CONSENTS ARE SIGNED,
[2020-04-24 09:11] VITALS: BP 140/56
--- NOTE | 2020-04-24 11:27 | NUR ---
TALKED WITH SHAYAN HOLDEN APN ABOUT PT BLOOD SUGAR BEING 414, INSTRUCTED TO GIVE ONLY HALF DOSE, WHICH IS 14 UNITS
[2020-04-24 12:04] VITALS: BP 149/62
[2020-04-24 12:22] VITALS: Ht 179.1 cm; Wt 127.5 kg
--- NOTE | 2020-04-24 12:52 | NUR ---
PT DBEING TAKEN TO OR PER BED AND TRANSPORT, PT DENIES ANY NEEDS AT THIS TIME
--- NOTE | 2020-04-24 16:55 | NUR ---
TALKED WITH DR MONTEZ PAULINO ABOUT LEAVING WOUND VAC ON Monday HE COMES AND LOOKS AT IT, NEW ORDERS FOR DRESSING CHANGE TO LEFT FOOT PER DR HERRMANN,
[2020-04-24 20:30] VITALS: BP 87/21
[2020-04-25 00:45] VITALS: BP 84/41
--- NOTE | 2020-04-25 03:27 | NUR ---
ASSESSED AT THE BEGINNING OF THE SHIFT. PT IS ALERT AND ORIENTED, ABLE TO VERBALIZE NEEDS. SHE WAS ABLE TO TAKE ALL HER MEDS AND THEN WE CLEANED UP HER ABD FOLDS, UNDER ARMS, AND BUTTOCKS SO WE COULD APPLY THE VARIOUS CREAMS THAT WERE ORDERED. APPLIED A NEW DRESSING TO HER RIGHT THIGH AND HEMOSPLIT. WE DID NOT TOUCH THE WOUNDVAC AND THE PATIENT DID NOT THINK THE MD WANTED THE HEEL DRESSING REMOVED THE FIRST NIGHT. HER BLOOD SUGAR WAS TREATED AND SHE HAS BEEN RESTING QUIET EVER SINCE. HER BLOOD PRESSURE WAS LOW WITH THE 1ST 87/21 AND THEN 84/41. PATIENT IS ASYMPTOMATIC AND TELEMETRY IS SHOWING HER IN THE 70'S SINUS RHYTHM.
[2020-04-25 04:30] VITALS: BP 126/44
--- NOTE | 2020-04-25 07:32 | NUR ---
WALKING ROUNDS COMPLETE, PT LAYING IN BED WATCHING TV, PT DENIES PAIN OR NEEDS, WOUND VAC SECURE TO RIGHT CALF, DRESSING DRY AND INTACT TO RIGHT THIGH AND LEFT FOOT, HEMOSPLIT SECURE, BED LOW AND LOCKED, CALL LIGHT IN REACH, SR UP X2, WILL CONTINUE TO MONITOR
[2020-04-25 08:04] VITALS: BP 128/53
[2020-04-25 08:53] LABS: BASOPHILS 0.4 % (0-2); EOSINOPHILS 3.7 % (0-7); HEMOGLOBIN 8.4 g/dL (12-16); IMMATURE GRANULOCYTES 0.1 % (0-5); MCH 29.6 pg (26.0-34.0); MONOCYTES 6.3 % (2-11); NEUTROPHILS 77.5 % (40-80); PLATELET COUNT 200 10x3/uL (130-400); RBC 2.84 10x6/uL (4.00-5.40); RDW 20.7 % (11.5-14.5)
--- NOTE | 2020-04-25 09:00 | NUR ---
PT AM ON HOLD DUE TO PT HAVING DIALYSIS AT THIS TIME, NO NEEDS VOICED FROM PT, WILL MONITOR
[2020-04-25 09:04] LABS: MCV 98.6 fL (80.0-100.0); WBC 11.3 10x3/uL (4.8-10.8)
[2020-04-25 09:11] LABS: CALCIUM 8.5 mg/dL (8.5-10.1); CARBON DIOXIDE 27.1 mmol/L (21.0-32.0); PHOSPHOROUS 3.7 mg/dL (2.5-4.9)
[2020-04-25 09:14] LABS: CREATININE - SERUM 6.4 mg/dL (0.6-1.3); POTASSIUM - SERUM 4.1 mmol/L (3.5-5.1)
[2020-04-25 12:15] VITALS: BP 107/51
--- NOTE | 2020-04-25 15:47 | NUR ---
DID DRESSSING CHANGES PER DOCTORS ORDERS, PT TOLERATED WELL, ALSO APPLIED NYSTATIN OINTMENT TO FOLDS, NO OTHER NEEDS VOICED, SR UP X2, AT BEDSIDE, WILL CONTINUE TO MONITOR
[2020-04-25 17:42] VITALS: BP 133/47
--- NOTE | 2020-04-25 19:00 | NUR ---
PT RESTING IN BED, DENIES PAIN OR NEEDS AT THIS TIME. CALL LIGHT WITHIN REACH. BED IS LOW AND SIDE RAILS UP X 2.
[2020-04-25 19:15] VITALS: BP 130/42
[2020-04-26] VITALS: BP 110/62
[2020-04-26 04:00] VITALS: BP 130/42
[2020-04-26 05:18] LABS: BASOPHILS 0.4 % (0-2); EOSINOPHILS 5.4 % (0-7); HEMATOCRIT 27.4 % (36.0-48.0); HEMOGLOBIN 8.2 g/dL (12-16); IMMATURE GRANULOCYTES 0.3 % (0-5); LYMPHOCYTES 17.8 % (15-50); MCH 29.2 pg (26.0-34.0); MCHC 29.9 g/dL (31.0-37.0); MCV 97.5 fL (80.0-100.0); MEAN PLATELET VOLUME 11.7 fL (7.4-10.4); MONOCYTES 11.3 % (2-11); NEUTROPHILS 64.8 % (40-80); PLATELET COUNT 189 10x3/uL (130-400); RBC 2.81 10x6/uL (4.00-5.40); RDW 20.3 % (11.5-14.5); WBC 9.6 10x3/uL (4.8-10.8)
[2020-04-26 05:31] LABS: ANION GAP 11.7 mmol/L (8-16); CALCIUM 8.6 mg/dL (8.5-10.1); CARBON DIOXIDE 26.5 mmol/L (21.0-32.0); CREATININE - SERUM 4.5 mg/dL (0.6-1.3); POTASSIUM - SERUM 4.2 mmol/L (3.5-5.1)
--- NOTE | 2020-04-26 07:15 | NUR ---
RECEIVE BEDSIDE SHIFT REPORT. FAMILY AT BEDSIDE. RESTING IN BED. ALERT AND ORIENTED. CALL LIGHT IN REACH. NO SIGNS OF DISTRESS. WILL CONTINUE PLAN OF CARE AND SAFETY PRECAUTIONS.
[2020-04-26 08:16] VITALS: BP 134/38
--- NOTE | 2020-04-26 10:52 | NUR ---
LEFT HEEL DRESSING CHANGED WITH WET TO DRY DRESSING PER ORDER USING BETADINE. RIGHT THIGH DRESSING CHANGED, WET TO DRY DRESSING WITH DAKIN'S SOLUTION. NO FURTHER NEEDS AT THIS TIME.
--- NOTE | 2020-04-26 12:01 | OP ---
PATIENT NAME: MONE VOGEL MEDICAL RECORD: [id number] :59 LOCATION:D.M2 D.2104 ADMISSION DATE:04/23/20 SURGEON: BROWN CEBALLOS MD DATE OF OPERATION: 04/24/2020 PREOPERATIVE DIAGNOSES: End-stage renal disease and dependence on hemodialysis; infected Trialysis right subclavian central venous line, non-tunneled dialysis catheter; and also persistent bacteremia with positive blood cultures for Enterobacter species; also skin necrosis with surrounding induration and tenderness, right anterolateral thigh with an area of eschar approximately 1 inch in diameter; and then also septic left heel decubitus. POSTOPERATIVE DIAGNOSES: End-stage renal disease and dependence on hemodialysis; infected Trialysis right subclavian central venous line, non-tunneled dialysis catheter; and also persistent bacteremia with positive blood cultures for Enterobacter species; also skin necrosis with surrounding induration and tenderness, right anterolateral thigh with an area of eschar approximately 1 inch in diameter; and then also septic left heel decubitus; possible calciphylaxis with extensive surrounding induration and fat necrosis in the right thigh versus potential MRSA local infection or even potentially a decubitus type pressure lesion and a stage IV septic left heel decubitus. OPERATION PERFORMED: 1. Ultrasound-guided insertion of left internal jugular 23 cm HemoSplit tunneled dialysis catheter including a superior vena cavogram, also removal and culture of right subclavian Trialysis dialysis catheter. 2. Excisional debridement of 4 x 4 x 1 cm necrotic skin and subcutaneous tissue eschar from the right anterolateral thigh and application of Dakin solution wet to dry dressing. 3. Excisional debridement of skin and subcutaneous tissues, muscle and fascia from the left heel decubitus 4 x 5 x 1 cm. Excised eschars were sent for gross pathology and all wounds swabbed for culture and sensitivities and the tip of Trialysis catheter sent for culture. PREOPERATIVE NOTE: Ms. Vogel is desperately ill 64-year-old white female patient with end-stage renal disease and numerous complication. She has been doing peritoneal dialysis until recently. She developed anasarca and a necrotic wound thought to most likely be a pressure ulcer on the posterior aspect of the right calf. She eventually was admitted to the hospital with Enterobacter septicemia and positive blood cultures, and grew Enterobacter from the necrotic wound on her leg. She also has had a Trialysis catheter inserted for temporary hemodialysis access and it was thought that her Trialysis catheter might have been a source of infection. She has undergone an exchange of the right subclavian Trialysis catheter and excisional sharp debridement of the ulcer on her right leg with placement of a wound VAC. Since that time, she has been on rehab, but has had recurrent fevers, again positive blood cultures at this time for Gram-negative rods and Gram-positive cocci, further identification pending and has developed a foul smelling, draining, large necrotic decubitus ulceration on the left heel and has developed a large area of induration of about 10 cm in diameter on the anterolateral right thigh with an area of central skin and subcutaneous tissue necrosis. A circular region of about 1 inch diameter. This has an appearance consistent with MRSA infection or calciphylaxis. She is brought to the operating room at this time to remove her Trialysis catheter, which is grossly infected externally and I plan to replace it with a tunneled OPERATIVE REPORT [id number] MONE VOGEL dialysis catheter, hopefully, a left internal jugular HemoSplit. Also, we will, I think need to excise the lesion on her thigh and as the left heel has not been debrided due to some mix up in communication between nursing and podiatry and my office, I am going to have to do some excisional debridement on the left heel because it could still be the source of her ongoing sepsis and positive blood cultures. Under initially TIVA and later general anesthesia with LMA, all by FLAG MAKER, the patient was placed in supine position, prepped and draped in sterile manner. I saw that the right subclavian Trialysis catheter was just too nasty to do a simple exchange and so then examined the left neck with Duplex ultrasound and noted that there was sonographically normal left internal jugular vein present. It was fully compressible and of normal caliber with no evidence of thrombosis or other abnormality. On the right, the internal jugular vein was absent. I then injected local anesthetic into the subcutaneous and soft tissues overlying the internal jugular vein there on the left and made a small incision and using ultrasound guidance and micropuncture technique, placed a needle and guidewire in the left internal jugular vein. Under fluoroscopy, the guidewire persisted and advancing downward into what corresponded to the hemiazygos vein. I performed a contrast injection and demonstrated a prominent hemiazygos veins, though with an intact patent left brachiocephalic vein and superior vena cava. I was then able to use an angled 0.035 Glidewire through my micropuncture catheter and manipulated this into and across the brachiocephalic vein and down into the right atrium and then down into the inferior vena cava. I placed a 7-Armenian port and then advanced a glide catheter into the inferior vena cava over that wire and then did a wire exchange placing an 0.035 Roadrunner wire. Then, under fluoroscopy over that guidewire, I passed serial dilators. I made an incision then beneath the clavicle and pulled a 23 cm HemoSplit catheter from that incision up to the cervical incision and then inserted the catheter through a peel-away sheath over that guidewire. The catheter was positioned very nicely in the right atrium. The lumens were both accessed and aspirated, free return of blood confirmed. They were then flushed with saline and then heparin locked, clamped and capped. The cervical incision was closed with interrupted inverted 3-0 Vicryl and Dermabond glue. That incision was dressed with Maxorb Ag, Tegaderm, and Cavilon skin prep. A standard CVL dressing with chlorhexidine Biopatch was applied to the catheter at the exit site. Ultrasound images from the procedure were documented on hard paper copies which were placed in the patient's chart for permanent documentation. The Trialysis catheter was then removed and its tip sent for culture. The site cleaned and then dressed with antibiotic ointment and a dry sterile gauze. The patient was then reprepped and redraped and the right thigh lesion was examined. It was an area of firm, warm induration with a black agdaagux in the middle. I did a tangential excision of the necrotic skin and underlying subcutaneous fat and then swabbed the wound for culture and sensitivity for aerobic and anaerobic organisms and Gram stain. There was really no pus and I did not elect to go ahead and excise a large area of fat necrosis. I left the wound open. There was some bleeding, which I stopped with very discrete use of electrocautery and then applied actually a saline wet to dry dressing to that wound. She will have Dakin's wet-to-dry dressings later on postop. The patient was then repositioned in the left lateral decubitus position and reprepped and redraped. There was quite a large necrotic heel eschar present. I did not note any areas of active drainage, although there was odor to the tissue. I did a OPERATIVE REPORT [id number] MONE VOGEL tangential debridement then of all of the necrotic skin and a good deal of the underlying subcutaneous fat, muscle and fascia. Tissue was sent to the lab for gross pathology where a swabs of the wound were obtained for culture and sensitivity and Gram stain. There was a considerable odor once the eschar was removed and I feel this may well have been the source of additional bacteremia for this patient. I did not excise periosteum or debride any bone from the calcaneus, although the stage IV ulceration appears to be that deep. That wound was subsequently dressed with quarter strength Dakin solution, wet to dry. The patient was then awakened from her anesthetic and taken to the recovery room in stable condition. Blood loss during the operation was minimal about 5 cc perhaps. Sponges, instruments and needles were accounted for. Many cultures were sent and the excised eschars were sent for gross pathology. PLAN: The patient will need b.i.d. wet to dry Dakin's dressings to her open wounds. She will need to be continued on appropriate antibiotics as per cultures. Hopefully, Dr. Brar , her air crew supervisor will see her again and take over management of her heel decubitus. Certainly, this patient has a very severe problem with this heel decubitus. At this time, she is not a candidate for long-term dialysis access largely because of her malnutrition, hypoproteinemia, and anasarca along with ongoing sepsis from other sites. TRANSINT:[id number] Voice Confirmation ID: [id number] DOCUMENT ID: [id number] BROWN CEBALLOS MD at 1201 CC: NESHA MALIK MD and FREDDY PATINO DO [id number] DICTATION DATE: 04/24/20 1636 MANAGER OF ENTERPRISE: 04/25/20 1455 ADM IN [place] [id number] [place] [address]
[2020-04-26 12:57] VITALS: BP 151/52
[2020-04-26 17:15] VITALS: BP 124/38
--- NOTE | 2020-04-26 19:38 | NUR ---
OBSERVING ISOLATION AT THIS TIME PT ALERT AND DENIES NEEDS BED LOW AND LOCKED AND CALL LIGHT IS IN REACH
[2020-04-26 20:00] VITALS: BP 151/58
--- NOTE | 2020-04-26 22:20 | NUR ---
I have reviewed this patient and I concur with the Shift Assessment completed by the Licensed Practical Nurse today this shift.ACCU CHECK 64 PT REFUSED JUICE OF ANY KIND HAD HER OWN GLUCOSE DRINK THAT SHE TOOK, HAS HER ONW GLUCOSE METER THAT SHE IS RECHECKING WITH WILL MONITOR
--- NOTE | 2020-04-26 23:15 | NUR ---
BLOOD SUGAR NOW AT 98, PT IS MONITORING, NO INSULIN GIVEN THIS PM
[2020-04-27] VITALS: BP 133/44
[2020-04-27 04:00] VITALS: BP 140/51
--- NOTE | 2020-04-27 07:15 | NUR ---
RECEIVE BEDSIDE SHIFT REPORT. RESTING IN BED WITH EYES CLOSED. NO SIGNS OF DISTRESS. WILL CONTINUE PLAN OF CARE AND SAFETY PRECAUTIONS.
[2020-04-27 09:46] LABS: BASOPHILS 0.3 % (0-2); EOSINOPHILS 5.2 % (0-7); HEMATOCRIT 27.8 % (36.0-48.0); HEMOGLOBIN 8.3 g/dL (12-16); IMMATURE GRANULOCYTES 0.5 % (0-5); MCH 28.9 pg (26.0-34.0); MCHC 29.9 g/dL (31.0-37.0); MCV 96.9 fL (80.0-100.0); MONOCYTES 6.5 % (2-11); NEUTROPHILS 70.5 % (40-80); PLATELET COUNT 207 10x3/uL (130-400); RBC 2.87 10x6/uL (4.00-5.40); RDW 19.9 % (11.5-14.5); WBC 9.7 10x3/uL (4.8-10.8)
[2020-04-27 09:49] LABS: ANION GAP 13.4 mmol/L (8-16); CALCIUM 9.3 mg/dL (8.5-10.1); CARBON DIOXIDE 25.3 mmol/L (21.0-32.0); POTASSIUM - SERUM 4.7 mmol/L (3.5-5.1)
[2020-04-27 09:50] LABS: CREATININE - SERUM 6.2 mg/dL (0.6-1.3)
--- NOTE | 2020-04-27 10:30 | NUR ---
HD TODAY, PULLED OFF 2L. BLOOD PRESSURE DROPPED BUT WAS ABLE TO FINISH. STABLE BP WHEN FINISHED. WILL GET HD TOMORROW.
[2020-04-27 11:35] VITALS: BP 91/35
--- NOTE | 2020-04-27 12:39 | NUR ---
Nutrition Follow-up: Overall good/fair PO intake. Nursing reports she ate 100% of dinner last night. HD today. Diet: Renal ADA PO intake: 50-100% yesterday Wt: 281# (04/24) Labs noted: Na 133, K+ 4.7, Glu 225 Meds noted: Novolog, Lantus, Humulin, Lasix, Tums, Protonix, Miralax -Encourage PO intake and honor food preferences within diet restrictions. -+Nepro TID and Proteinex BID for increased protein needs; pt previously received these supplements in rehab. -Monitor wt. -RD following.
[2020-04-27 14:47] VITALS: BP 156/48
--- NOTE | 2020-04-27 19:00 | NUR ---
EVENING ROUNDS COMPLETE. PT LAYING IN BED. NO SIGNS OF DISTRESS. AAOX4. PT DENIES ANY PAIN AT THIS TIME. REQUEST FOR A BED QUEEN, VOLODYMYR DORSEY ASSISTED. NO OTHER NEEDS VOICED AT THIS TIME. CL IN REACH, BED IN LOWEST POSITION.
--- NOTE | 2020-04-27 19:00 | NUR ---
EVENING ROUNDS COMPLETE. PT SITTING UP IN BED. NO SIGNS OF DISTRESS. PT DENIES ANY PAIN OR NEEDS AT THIS TIME. CL IN REACH, BED IN LOWEST POSITION. PT IS NOT ORIENTED AND PLEASANTLY CONFUSED.
[2020-04-27 20:00] VITALS: BP 158/48
--- NOTE | 2020-04-27 22:48 | NUR ---
OT NOTE: PT COMPLETED BED MOB TASKS WITH MOD/MAX A X2. PT COMPLETED UE AROM WITH FUNCTIONAL TASKS TOLERATED. PT COMPLETED LB HYGIENE WITH MAX A. 115-139 TONEY MARIA COTA
--- NOTE | 2020-04-28 07:18 | NUR ---
RECEIVE BEDSIDE SHIFT REPORT. RESTING IN BED WITH EYES CLOSED. NO SIGNS OF DISTRESS. WILL CONTINUE PLAN OF CARE AND SAFETY PRECAUTIONS.
[2020-04-28 07:58] VITALS: BP 123/56
--- NOTE | 2020-04-28 08:56 | MORECARE ---
CASE MANAGEMENT DISCHARGE SUMMARY PATIENT: MONE VOGEL UNIT: [id number] ADM DATE: 04/23/20 AGE: 64 : 59 SEX: F ROOM/BED: D.1006 AUTHOR: TRANG CLAUDIO PHYSICIAN: REFERRING PHYSICIAN: FREDDY PATINO DO DATE OF SERVICE: 04/28/20 Discharge Plan Patient Name: MONE VOGEL Facility: [facility]:[place] : 1955 Planned Disposition: Mcfp Facility Anticipated Discharge Date: Discharge Date: Expected LOS: Initial Reviewer: [email or web address] Initial Review Date: 04/23/2020 Generated: 04/28/20 9:55 am Comments DCP- Discharge Planning Updated by [id number]: Leila Zheng on 04/27/20 2:[address] CM has attempted X2 this afternoon to obtain a name for a nursing facility, but unable to reach the patient's . CM attempted to speak with the patient this morning, but she was busy on a phone call. CM called back later and patient states that her was going to check on a facility, but would not be here until after 1100. CM will attempt to speak with spouse later this morning. Tuesday 04/24 CM met with spouse, Alvin (patient was in surgery) regarding DC plans. Spouse states patient needs to go into a skilled bed but he was not sure of which one. CM met with patient to discuss initial discharge planning. Patient is in agreement to proceed with the assessment. Patient reports that she lives at home independent with her , Alvin Vogel (declined to give his number). Patient is alert/oriented. Stairs/steps: Ramp. PCP: Dr. Sykes. [facility]. Patient has been able to obtain all of her prescribed medications. HHS: None. DME: Walker, W/C, Motorized w/c, Shower chair, commode in bedroom. Patient gives permission to speak with family members/care givers. Emergency contact: Lori Cadena (mother) [phone]. Patient has been ti Inpatient rehab @WASTE HANDLING TECHNICIAN X2, prior to returning to the medical floor. Patient is Independent with all ADL's, medication management CANNON FIRE DIRECTION SPECIALIST. CM discussed the availability of HH, Rehab, SNF, OP Therapy, DME services. Patient is in need of a Skilled bed. Patient denies the use of community resources CANNON FIRE DIRECTION SPECIALIST. Transportation at time of discharge: to be determined. Patient Name: MONE VOGEL Page [phone] at 0856 All edits/amendments must be made on the electronic document DICTATION DATE: 04/28/20854 HEALTH INFORMATION SYSTEMS TECHNICIAN: JERMAIN 04/28/20854 RPT#: [id number] DC DATE: STATUS: ADM IN [facility] [address] [place] [address] END OF REPORT
[2020-04-28 11:40] VITALS: BP 125/59
--- NOTE | 2020-04-28 14:04 | MORECARE ---
CASE MANAGEMENT DISCHARGE SUMMARY PATIENT: MOEN VOGEL UNIT: [id number] ADM DATE: 04/23/20 AGE: 64 : 59 SEX: F ROOM/BED: D.1401 AUTHOR: TRANG CLAUDIO PHYSICIAN: REFERRING PHYSICIAN: FREDDY PATINO DO DATE OF SERVICE: 04/28/20 Discharge Plan Patient Name: MONE VOGEL Facility: [facility]:[place] : 1955 Planned Disposition: Fpc Facility Anticipated Discharge Date: Discharge Date: Expected LOS: 0 Initial Reviewer: [email or web address] Initial Review Date: 04/23/2020 Generated: 04/28/20 3:03 pm Comments DCP- Discharge Planning Updated by [id number]: Leila Zheng on 04/27/20 2:[address] CM has attempted X2 this afternoon to obtain a name for a nursing facility, but unable to reach the patient's . CM attempted to speak with the patient this morning, but she was busy on a phone call. CM called back later and patient states that her was going to check on a facility, but would not be here until after 1100. CM will attempt to speak with spouse later this morning. Tuesday 04/24 CM met with spouse, Alvin (patient was in surgery) regarding DC plans. Spouse states patient needs to go into a skilled bed but he was not sure of which one. CM met with patient to discuss initial discharge planning. Patient is in agreement to proceed with the assessment. Patient reports that she lives at home independent with her , Alvin Vogel (declined to give his number). Patient is alert/oriented. Stairs/steps: Ramp. PCP: Dr. Sykes. Pharmacy: [address] Patient has been able to obtain all of her prescribed medications. HHS: None. DME: Walker, W/C, Motorized w/c, Shower chair, commode in bedroom. Patient gives permission to speak with family members/care givers. Emergency contact: Lori Cadena (mother) [phone]. Patient has been ti Inpatient rehab @[facility]IL[facility] X2, prior to returning to the medical floor. Patient is Independent with all ADL's, medication management SPRINKLER REPAIR TECHNICIAN. CM discussed the availability of HH, Rehab, SNF, OP Therapy, DME services. Patient is in need of a Skilled bed. Patient denies the use of community resources SPRINKLER REPAIR TECHNICIAN. Transportation at time of discharge: to be determined. External Providers External Provider: [facility] Next Contact Date: Service Request Date: Service Type: Resolution: Reviewer: Comments: Last DP export: 04/28/20 7:56 a Patient Name: MONE VOGEL Page [phone] at 1404 All edits/amendments must be made on the electronic document DICTATION DATE: 04/28/201402 SURGICAL CLINICAL REVIEWER: JERMAIN 04/28/20 140 RPT#: [id number] DC DATE: STATUS: ADM IN [facility] [address] [place] [address] END OF REPORT
[2020-04-28 14:09] LABS: BASOPHILS 0.4 % (0-2); EOSINOPHILS 7.2 % (0-7); HEMATOCRIT 26.1 % (36.0-48.0); IMMATURE GRANULOCYTES 0.8 % (0-5); LYMPHOCYTES 23.1 % (15-50); MCH 29.2 pg (26.0-34.0); MCHC 30.7 g/dL (31.0-37.0); MCV 95.3 fL (80.0-100.0); MEAN PLATELET VOLUME 10.9 fL (7.4-10.4); MONOCYTES 5.8 % (2-11); NEUTROPHILS 62.7 % (40-80); PLATELET COUNT 186 10x3/uL (130-400); RBC 2.74 10x6/uL (4.00-5.40); RDW 19.2 % (11.5-14.5)
[2020-04-28 14:32] LABS: ANION GAP 10.1 mmol/L (8-16); CALCIUM 8.1 mg/dL (8.5-10.1); CREATININE - SERUM 5.1 mg/dL (0.6-1.3); POTASSIUM - SERUM 4.1 mmol/L (3.5-5.1); VANCOMYCIN - RANDOM 15.5 ug/mL (10.0-20.0)
--- NOTE | 2020-04-28 14:47 | NUR ---
OT NOTE: DISCUSSED WITH NURSING PRIOR TO THERAPY. PT HAD WOUND VAC REMOVED FROM R CALF AND HAND ONCE PLACED ON HER L HEEL, HOWEVER, THAT ONE CAME OFF.. NURSING REPORTS PT HAS ALREADY HAD SOMETHING FOR PAIN. AT BEDSIDE. ENCOURAGED PT TO SIT UP ON EOB..REQUIRED MOD/MAX ASSIST X 2; SITTING BALANCE GOOD; ABLE TO PERFORM SEVERAL UE/LE EXS.. TOLERATED SITTING ON EOB APPROX 8 MIN. PT ABLE TO DOFF AND CARLA GOWN WITH MIN ASSIST; ASSISTED BACK TO BED AND PT HAD HAD A SMALL BM; PT ABLE TO ROLL FROM SIDE TO SIDE WITH MOD ASSIST; ABLE TO MAINTAIN SIDELIEING WITH MIN ASSIST; PROVIDED PERINEAL CARE; CHANGED LINENS REQUIRING PT TO ROLL FROM SIDE TO SIDE SEVERAL TIMES. ELEVATED L LE ON PILLOWS TO PREVENT PRESSURE TO L HEEL. COLLINS ANTOINE, OTR/L [id number]
[2020-04-28 15:21] VITALS: BP 172/65
--- NOTE | 2020-04-28 15:45 | MORECARE ---
CASE MANAGEMENT DISCHARGE SUMMARY PATIENT: MONE VOGEL UNIT: [id number] ADM DATE: 04/23/20 AGE: 64 : 59 SEX: F ROOM/BED: D.1045 AUTHOR: TRANG CLAUDIO PHYSICIAN: REFERRING PHYSICIAN: FREDDY PATINO DO DATE OF SERVICE: 04/28/20 Discharge Plan Patient Name: MONE VOGEL Facility: [facility]:[place] : 1955 Planned Disposition: Mcfp Facility Anticipated Discharge Date: Discharge Date: Expected LOS: 0 Initial Reviewer: [id number] Initial Review Date: 04/23/2020 Generated: 04/28/20 4:44 pm Comments DCP- Discharge Planning Updated by [id number]: Leila Zheng on 04/27/20 2:[address] CM has attempted X2 this afternoon to obtain a name for a nursing facility, but unable to reach the patient's . CM attempted to speak with the patient this morning, but she was busy on a phone call. CM called back later and patient states that her was going to check on a facility, but would not be here until after 1100. CM will attempt to speak with spouse later this morning. Tuesday 04/24 CM met with spouse, Alvin (patient was in surgery) regarding DC plans. Spouse states patient needs to go into a skilled bed but he was not sure of which one. CM met with patient to discuss initial discharge planning. Patient is in agreement to proceed with the assessment. Patient reports that she lives at home independent with her , Alvin Vogel (declined to give his number). Patient is alert/oriented. Stairs/steps: Ramp. PCP: Dr. Sykes. Pharmacy: [address] Patient has been able to obtain all of her prescribed medications. HHS: None. DME: Walker, W/C, Motorized w/c, Shower chair, commode in bedroom. Patient gives permission to speak with family members/care givers. Emergency contact: Lori Cadena (mother) [phone]. Patient has been ti Inpatient rehab @PAN WASHER X2, prior to returning to the medical floor. Patient is Independent with all ADL's, medication management SHADE CLASSIFIER. CM discussed the availability of HH, Rehab, SNF, OP Therapy, DME services. Patient is in need of a Skilled bed. Patient denies the use of community resources SHADE CLASSIFIER. Transportation at time of discharge: to be determined. Last DP export: 04/28/20 1:04 p Patient Name: MONE VOGEL Page [phone] at 1545 All edits/amendments must be made on the electronic document DICTATION DATE: 04/28/201543 COMMUNITY HEALTH PLANNING DIRECTOR: JERMAIN 04/28/201543 RPT#: [id number] DC DATE: STATUS: ADM IN [facility] [address] [place] [address] END OF REPORT
--- NOTE | 2020-04-28 15:53 | MORECARE ---
CASE MANAGEMENT DISCHARGE SUMMARY PATIENT: MONE VOGEL UNIT: [id number] ADM DATE: 04/23/20 AGE: 64 : 59 SEX: F ROOM/BED: D.3606 AUTHOR: TRANG CLAUDIO PHYSICIAN: REFERRING PHYSICIAN: FREDDY PATINO DO DATE OF SERVICE: 04/28/20 Discharge Plan Patient Name: MONE VOGEL Facility: [facility]:[place] : 1955 Planned Disposition: Mcfp Facility Anticipated Discharge Date: Discharge Date: Expected LOS: 0 Initial Reviewer: [id number] Initial Review Date: 04/23/2020 Generated: 04/28/20 4:53 pm Comments DCP- Discharge Planning Updated by [email or web address]: Leila Zheng on 04/28/20 2:[address] CM contacted patient this morning regarding names for a SNF facility. Patient request [facility], or a facility in [place]. CM has contacted Natalie Zazueta for [facility] and Aleksandar for [facility]. DCP- Discharge Planning Updated by [email or web address]: Leila Zheng on 04/27/20 2:[address] CM has attempted X2 this afternoon to obtain a name for a nursing facility, but unable to reach the patient's . CM attempted to speak with the patient this morning, but she was busy on a phone call. CM called back later and patient states that her was going to check on a facility, but would not be here until after 1100. CM will attempt to speak with spouse later this morning. Tuesday 04/24 CM met with spouse, Alvin (patient was in surgery) regarding DC plans. Spouse states patient needs to go into a skilled bed but he was not sure of which one. CM met with patient to discuss initial discharge planning. Patient is in agreement to proceed with the assessment. Patient reports that she lives at home independent with her , Alvin Vogel (declined to give his number). Patient is alert/oriented. Stairs/steps: Ramp. PCP: Dr. Sykes. Pharmacy: [address] Patient has been able to obtain all of her prescribed medications. HHS: None. DME: Walker, W/C, Motorized w/c, Shower chair, commode in bedroom. Patient gives permission to speak with family members/care givers. Emergency contact: Lori Cadena (mother) [phone]. Patient has been ti Inpatient rehab @CONTACT REPRESENTATIVE X2, prior to returning to the medical floor. Patient is Independent with all ADL's, medication management SENIOR TECHNICAL SPECIALIST. CM discussed the availability of HH, Rehab, SNF, OP Therapy, DME services. Patient is in need of a Skilled bed. Patient denies the use of community resources SENIOR TECHNICAL SPECIALIST. Transportation at time of discharge: to be determined. External Providers External Provider: [facility] Next Contact Date: Service Request Date: Service Type: Resolution: Reviewer: Comments: Last DP export: 04/28/20 2:45 p Patient Name: MONE VOGEL Page [phone] at 1553 All edits/amendments must be made on the electronic document DICTATION DATE: 04/28/201552 WEDDING CONSULTANT: JERMAIN 04/28/201552 RPT#: [id number] DC DATE: STATUS: ADM IN [facility] [address] [place] [address] END OF REPORT
--- NOTE | 2020-04-28 15:57 | NUR ---
OT NOTE: PT COMPLETED SIDE ROLLING WITH MOD/MAX A. PT COMPLETED BUE AROM AX WITH FUNCTIONAL TASKS. PT REQUIRED USE OF SIDE RAILS. PT REQUIRED TOTAL A WITH POSITIONING TO DECREASE FURTHER SKIN BREAKDOWN. PT COMPLETED FACE HYGIENE WITH SETUP. 1228-1 THANK YOU,MOOKIE CORBIN
--- NOTE | 2020-04-28 16:13 | NUR ---
FINISHED DIALYSIS, REMOVED 1500ML. TOLERATED WELL. BP 138/74.
--- NOTE | 2020-04-28 16:18 | MORECARE ---
CASE MANAGEMENT DISCHARGE SUMMARY PATIENT: MONE VOGEL UNIT: [id number] ADM DATE: 04/23/20 AGE: 64 : 59 SEX: F ROOM/BED: D.9201 AUTHOR: TRANG CLAUDIO PHYSICIAN: REFERRING PHYSICIAN: FREDDY PATINO DO DATE OF SERVICE: 04/28/20 Discharge Plan Patient Name: MONE VOGEL Facility: [facility]:[place] : 1955 Planned Disposition: Mcfp Facility Anticipated Discharge Date: Discharge Date: Expected LOS: 0 Initial Reviewer: [id number] Initial Review Date: 04/23/2020 Generated: 04/28/20 5:17 pm Comments DCP- Discharge Planning Updated by [id number]: Leila Zheng on 04/28/20 3:[address] CM contacted patient this morning regarding names for a SNF facility. Patient request [place], #2 [facility], [place], or a facility in [place]. CM has contacted Natalie Zazueta for [place] and Aleksandar for [facility]. CM also faxed to Tyesha, for a SNF either in or [place]. DCP- Discharge Planning Updated by [id number]: Lelia Zheng on 04/27/20 2:[address] CM has attempted X2 this afternoon to obtain a name for a nursing facility, but unable to reach the patient's . CM attempted to speak with the patient this morning, but she was busy on a phone call. CM called back later and patient states that her was going to check on a facility, but would not be here until after 1100. CM will attempt to speak with spouse later this morning. Tuesday 04/24 CM met with spouse, Alvin (patient was in surgery) regarding DC plans. Spouse states patient needs to go into a skilled bed but he was not sure of which one. CM met with patient to discuss initial discharge planning. Patient is in agreement to proceed with the assessment. Patient reports that she lives at home independent with her , Alvin Vogel (declined to give his number). Patient is alert/oriented. Stairs/steps: Ramp. PCP: Dr. Sykes. Pharmacy: [address] Patient has been able to obtain all of her prescribed medications. HHS: None. DME: Walker, W/C, Motorized w/c, Shower chair, commode in bedroom. Patient gives permission to speak with family members/care givers. Emergency contact: Lori Cadena (mother) [phone]. Patient has been ti Inpatient rehab @CONSTRUCTION SUPERINTENDENT X2, prior to returning to the medical floor. 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 CM discussed the availability of HH, Rehab, SNF, OP Therapy, DME services. Patient is in need of a Skilled bed. Patient denies the use of community resources TRAILHEAD CONSTRUCTION WORKER. Transportation at time of discharge: to be determined. External Providers External Provider: [facility] Next Contact Date: Service Request Date: Service Type: Resolution: Reviewer: Comments: Last DP export: 04/28/20 2:53 p Patient Name: MONE VOGEL Page [id number] at 1618 All edits/amendments must be made on the electronic document DICTATION DATE: 04/28/201616 RN INTERN: JERMAIN 04/28/201616 RPT#: [id number] DC DATE: STATUS: ADM IN [facility] [address] [place] [address] END OF REPORT
--- NOTE | 2020-04-28 17:34 | NUR ---
RECEIVED IN REPORT THAT WOUND VAC WAS OFF OF LEFT HEEL DUE TO LEAK AND NOT BEING ABLE TO REAPPLY IT. ELIE CORCORAN PLACED NEW WOUND VAC TO LEFT HEEL.
--- NOTE | 2020-04-28 19:00 | NUR ---
REPORT RECEIVED, WILL CONTINUE POC. PATIENT IS AAOX4, SITTING UP IN BED. NO S/S OF DISTRESS OBSERVED, RR EVEN AND UNLABORED ON 2L O2 VIA NC. PATIENT DENIES NEEDS AT THIS TIME. CL IN REACH, BED LOCKED AND LOWERED. WILL CTM.
--- NOTE | 2020-04-28 20:00 | NUR ---
WOUND VAC ALARMING, PATIENT ACCIDENTALLY PULLED OFF WOUND VAC. UNABLE TO OBTAIN GOOD SEAL. WILL HAVE ANOTHER NURSE ATTEMPT.
[2020-04-28 21:41] VITALS: BP 139/49
--- NOTE | 2020-04-28 22:27 | NUR ---
PAGED SANGITA HOLDEN APN DUE TO NOT HAVING ACCESS TO ADMINISTER LEVAQUIN AND VANCOMYCIN. INSTRUCTED TO HOLD VANC AND CHANGED LEVAQUIN 500MG TO PO DOSE THIS EVENING.
--- NOTE | 2020-04-29 07:30 | NUR ---
PT PLACED ON BEDPAN PER REQUEST. BM X1, LIQUID. REMOVED FROM BEDPAN AND CLEANED, CHUCKS CHANGED. CALMOSEPTINE APPLIED TO BOTTOM. SEVERAL OPEN SORES NOTED TO BOTTOM, ALSO RED AND EXCORIATED IN GENERAL. WOUND VAC TO LEFT FOOT IS OFF, WILL REMOVE AND REDRESS. DRESSING TO RIGHT CALF IS OFF. DRESSING PLACED, CDI. LEGS ELEVATED TO COMFORT. CALL LIGHT WITHIN REACH. RR EVEN AND UNLABORED. DENIES FURTHER NEEDS OR PAIN AT THIS TIME. BED IN LOWEST POSITION. WILL CONTINUE TO MONITOR.
--- NOTE | 2020-04-29 09:00 | NUR ---
PT PLACED ON BEDPAN PER REQUEST. LIQUID STOOL NOTED. PT CLEANED, CHUCKS REPLACED WITH CLEAN ONES. CALMOSEPTINE APPLIED TO BUTTOCK. CALL LIGHT WITHIN REACH. BED IN LOWEST POSITION. REPOSITIONED TO COMFORT. WILL CONTINUE TO MONITOR.
[2020-04-29 11:25] VITALS: BP 157/69
--- NOTE | 2020-04-29 16:56 | NUR ---
PT CHECKS HER OWN BLOOD SUGAR WITH AN IMPLANTED GLUCOMETER. VISUALIZED ALL BLOOD SUGARS. BLOOD SUGAR 381
--- NOTE | 2020-04-29 18:52 | NUR ---
DR. HERRMANN AT BEDSIDE. DRESSING TO RIGHT CALF, RIGHT THIGH, AND LEFT HEEL CHANGED, CDI. DENIES FURTHER NEED OR PAIN AT THIS TIME.
--- NOTE | 2020-04-29 19:00 | NUR ---
REPORT RECEIVED. WILL CONTINUE POC. PATIENT IS AAOX4, SITTING UP IN BED FINISHING HER DINNER TRAY. NO S/S OF DISTRESS OBSERVED, RR EVEN AND UNLABORED ON 2L O2 VIA NC. WOUND VAC TO LEFT HEEL, IN PLACE AND FUNCTIONING PROPERLY. PATIENT DENIES NEEDS AT THIS TIME. CL IN REACH, BED LOCKED AND LOWERED. WILL CTM.
[2020-04-29 20:00] VITALS: BP 108/54
--- NOTE | 2020-04-29 21:02 | NUR ---
OT NOTE: PT COMPLETED SIDE ROLLING WITH MOD A TO REMOVE BED QUEEN. PT COMPLETED BED POSITIONING WITH MAX AX2. NOTED DRESSING OFF OF WOUNDS. PT REQUIRED TOTAL A WITH LB HYGIENE TASKS. PT COMPLETED FACE HYGIENE WITH SETUP. DAMICO NOTIFIED NURSING OF WOUND DRESSINGS NEED REPLACED. 828-9 THANK YOU,MOOKIE CORBIN
--- NOTE | 2020-04-30 06:47 | NUR ---
PATIENT BLOOD SUGAR 49, PATIENT IS ASYMPTOMATIC. ADMINISTERED GLUCOSE DRINK, PATIENT CALLED IN 10MIN AND SAID SHE WAS FEELING A LITTLE SHAKEY. BLOOD SUGAR IS NOW 53, ADMINISTERED ANOTHER GLUCOSE DRINK AND DR. PATINO IS ON FLOOR AND WAS NOTIFIED. WILL REASSESS.
[2020-04-30 08:00] VITALS: BP 128/51
[2020-04-30 09:12] LABS: HEPATITIS C ANTIBODY <0.1 S/CO RAT (0.0-0.9)
--- NOTE | 2020-04-30 10:59 | NUR ---
Nutrition Follow-up: Fluctuating PO intake. Pt states that she needs assistance with meal set up. Reports drinking 1 Nepro on HD days and 3 on non-HD days. HD today. Diet: Renal ADA, Nepro TID, Proteinex BID PO intake: 25-100% Wt: 281# (04/24) Labs reviewed Meds noted: Lantus, Novolog, Humulin, Lasix, Tums, Protonix -Encourage PO intake and honor food preferences within diet restrictions. -Needs assistance with meal set up. -Monitor wt. -RD following.
--- NOTE | 2020-04-30 11:19 | MORECARE ---
CASE MANAGEMENT DISCHARGE SUMMARY PATIENT: OMNE VOGEL UNIT: [id number] ADM DATE: 04/23/20 AGE: 64 : 59 SEX: F ROOM/BED: D.5134 AUTHOR: TRANG CLAUDIO PHYSICIAN: REFERRING PHYSICIAN: FREDDY PATINO DO DATE OF SERVICE: 04/30/20 Discharge Plan Patient Name: MONE VOGEL Facility: [facility]:[place] : 1955 Planned Disposition: Long Term Facility Anticipated Discharge Date: Discharge Date: Expected LOS: 0 Initial Reviewer: [id number] Initial Review Date: 04/23/2020 Generated: 04/30/20 12:18 pm Comments DCP- Discharge Planning Updated by [email or web address]: Leila Zheng on 04/28/20 3:[address] CM contacted patient this morning regarding names for a SNF facility. Patient request [place], #2 [facility], [place], or a facility in [place]. CM has contacted Natalie Zazueta for [place] and Aleksandar for [facility]. CM also faxed to Tyesha, for a SNF either in or [place]. DCP- Discharge Planning Updated by [id number]: Leila Zheng on 04/27/20 2:[address] CM has attempted X2 this afternoon to obtain a name for a nursing facility, but unable to reach the patient's . CM attempted to speak with the patient this morning, but she was busy on a phone call. CM called back later and patient states that her was going to check on a facility, but would not be here until after 1100. CM will attempt to speak with spouse later this morning. Tuesday 04/24 CM met with spouse, Alvin (patient was in surgery) regarding DC plans. Spouse states patient needs to go into a skilled bed but he was not sure of which one. CM met with patient to discuss initial discharge planning. Patient is in agreement to proceed with the assessment. Patient reports that she lives at home independent with her , Alvin Vogel (declined to give his number). Patient is alert/oriented. Stairs/steps: Ramp. PCP: Dr. Sykes. Pharmacy: [address] Patient has been able to obtain all of her prescribed medications. HHS: None. DME: Walker, W/C, Motorized w/c, Shower chair, commode in bedroom. Patient gives permission to speak with family members/care givers. Emergency contact: Lori Cadena (mother) [phone]. Patient has been ti Inpatient rehab @RETAIL ADMINISTRATIVE ASSISTANT X2, prior to returning to the medical floor. 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 CM discussed the availability of HH, Rehab, SNF, OP Therapy, DME services. Patient is in need of a Skilled bed. Patient denies the use of community resources COMPENSATION COORDINATOR. Transportation at time of discharge: to be determined. Last DP export: 04/28/20 3:18 p Patient Name: MONE VOGEL Page 69740 at 1119 All edits/amendments must be made on the electronic document DICTATION DATE: 04/30/201117 MILK BOTTLING MACHINE OPERATOR: JERMAIN 04/30/201117 RPT#: [id number] DC DATE: STATUS: ADM IN [facility] [address] [place] [address] END OF REPORT
[2020-04-30 11:31] LABS: BASOPHILS 0.3 % (0-2); EOSINOPHILS 4.2 % (0-7); IMMATURE GRANULOCYTES 0.7 % (0-5); LYMPHOCYTES 15.1 % (15-50); MCH 29.1 pg (26.0-34.0); MCHC 30.8 g/dL (31.0-37.0); MCV 94.5 fL (80.0-100.0); MEAN PLATELET VOLUME 10.8 fL (7.4-10.4); MONOCYTES 8.1 % (2-11); NEUTROPHILS 71.6 % (40-80); PLATELET COUNT 221 10x3/uL (130-400); RBC 2.75 10x6/uL (4.00-5.40); WBC 9.1 10x3/uL (4.8-10.8)
[2020-04-30 11:42] LABS: ALBUMIN 2.3 g/dL (3.4-5.0); ANION GAP 10.4 mmol/L (8-16); CALCIUM 8.6 mg/dL (8.5-10.1); CARBON DIOXIDE 28.5 mmol/L (21.0-32.0); CREATININE - SERUM 5.6 mg/dL (0.6-1.3); PHOSPHOROUS 2.7 mg/dL (2.5-4.9); POTASSIUM - SERUM 3.9 mmol/L (3.5-5.1)
--- NOTE | 2020-04-30 11:46 | MORECARE ---
CASE MANAGEMENT DISCHARGE SUMMARY PATIENT: MONE VOGEL UNIT: [id number] ADM DATE: 04/23/20 AGE: 64 : 59 SEX: F ROOM/BED: D.4987 AUTHOR: SHANON,TRANG PHYSICIAN: REFERRING PHYSICIAN: FREDDY PATINO DO DATE OF SERVICE: 04/30/20 Discharge Plan Patient Name: MONE VOGEL Facility: [facility]:[place] : 1955 Planned Disposition: Fpc Facility Anticipated Discharge Date: Discharge Date: Expected LOS: 0 Initial Reviewer: [id number] Initial Review Date: 04/23/2020 Generated: 04/30/20 12:45 pm Comments DCP- Discharge Planning Updated by [id number]: Leila Zheng on 04/30/20 10:[address] 04/30: Contacted by Ge with [facility]. The facility is looking over the patient's paperwork/financial to determine if they can accept patient. [facility] have declined. We are still pending HD days. Hepatitis panel is available. 04/29: CAMI has been in contact with Aleksandar, with [facility] and Tyesha, with [facility] and [place] SNF's. DCP- Discharge Planning Updated by [id number]: Leila Zheng on 04/28/20 3:[address] CM contacted patient this morning regarding names for a SNF facility. Patient request [place], #2 [facility], or a facility in [place]. [facility]I has contacted Natalie Zazueta for [place] and Aleksandar for [facility]. CM also faxed to Tyesha, for a SNF either in or [place]. DCP- Discharge Planning Updated by [email or web address]: Leila Zheng on 04/27/20 2:[address] CM has attempted X2 this afternoon to obtain a name for a nursing facility, but unable to reach the patient's . CM attempted to speak with the patient this morning, but she was busy on a phone call. CM called back later and patient states that her was going to check on a facility, but would not be here until after 1100. CM will attempt to speak with spouse later this morning. Tuesday 04/24 CM met with spouse, Alvin (patient was in surgery) regarding DC plans. Spouse states patient needs to go into a skilled bed but he was not sure of which one. CM met with patient to discuss initial discharge planning. Patient is in agreement to proceed with the assessment. Patient reports that she lives at home independent with her , Alvin Vogel (declined to give his number). Patient is alert/oriented. Stairs/steps: Ramp. PCP: Dr. Sykes. Pharmacy: [address] Patient has been able to obtain all of her prescribed medications. HHS: None. DME: Walker, W/C, Motorized w/c, Shower chair, commode in bedroom. Patient gives permission to speak with family members/care givers. Emergency contact: Lori Cadena (mother) [phone]. Patient has been ti Inpatient rehab @DIRECTOR OF MARKETING COMMUNICATIONS X2, prior to returning to the medical floor. Patient is Independent with all ADL's, medication management ISOTOPE TECHNOLOGIST. CM discussed the availability of HH, Rehab, SNF, OP Therapy, DME services. Patient is in need of a Skilled bed. Patient denies the use of community resources ISOTOPE TECHNOLOGIST. Transportation at time of discharge: to be determined. Last DP export: 04/30/20 10:19 a Patient Name: MONE VOGEL Page 86118 at 1146 All edits/amendments must be made on the electronic document DICTATION DATE: 04/30/20 1146 SENIOR PHP DEVELOPER: JERMAIN 04/30/20 1146 RPT#: [id number] DC DATE: STATUS: ADM IN [facility] [address] [place] [address] END OF REPORT
--- NOTE | 2020-04-30 13:35 | NUR ---
OT NOTE: PT DOING BETTER TODAY. PRACTICED EXTENSIVE TRAINING IN [place] TO SIT..PT WAS ABLE TO PERFORM FROM SIDELIEING POSITION WITH MIN ASSIST FOR INITITAL ATTEMPT, BUT THEN ABLE TO PERFORM WITHOUT ASSIST FOR 2ND 2 TRIALS. THIS WAS MUCH BETTER SHE WAS REQUIRING MOD/MAX ASSIST. TOLERATED SITTING UP ON EOB X APPROX 10 MIN WITHOUT SUPPORT; PERFORMED UE AND LE EXS X 10 REPS X 2 SETS..SIMPLE GROOMING TASKS WITH SET UP; ENCOURAGED TO SIT UP ON EOB FOR MEALS. COLLINS ANTOINE, OTR/L 1-820
[2020-04-30 15:00] VITALS: BP 134/50
--- NOTE | 2020-04-30 16:06 | MORECARE ---
CASE MANAGEMENT DISCHARGE SUMMARY PATIENT: MONE VOGEL UNIT: [id number] ADM DATE: 04/23/20 AGE: 64 : 59 SEX: F ROOM/BED: D.7195 AUTHOR: SHANON,DOC PHYSICIAN: REFERRING PHYSICIAN: FREDDY PATINO DO DATE OF SERVICE: 04/30/20 Discharge Plan Patient Name: MONE VOGEL Facility: [facility]:[place] : 1955 Planned Disposition: Correction Facility Anticipated Discharge Date: Discharge Date: Expected LOS: 0 Initial Reviewer: [id number] Initial Review Date: 04/23/2020 Generated: 04/30/20 5:06 pm Comments DCP- Discharge Planning Updated by [id number]: Leila Zheng on 04/30/20 2:[address] 1550: Enriqueta, with [facility] is here to interview patient. 04/30: Contacted by Ge with [facility]. The facility is looking over the patient's paperwork/financial to determine if they can accept patient. [facility] have declined. We are still pending HD days. Hepatitis panel is available. 04/29: CAMI has been in contact with Aleksandar, with [facility] and Tyesha, with [facility] and [place] SNF's. DCP- Discharge Planning Updated by [id number]: Leila Zheng on 04/28/20 3:[address] CM contacted patient this morning regarding names for a SNF facility. Patient request [place], #2 [facility], [place], or a facility in [place]. CM has contacted Natalie Zazueta for [place] and Aleksandar for [facility]. CM also faxed to Tyesha, for a SNF either in or [place]. DCP- Discharge Planning Updated by [id number]: Leila Zheng on 04/27/20 2:[address] CM has attempted X2 this afternoon to obtain a name for a nursing facility, but unable to reach the patient's . CM attempted to speak with the patient this morning, but she was busy on a phone call. CM called back later and patient states that her was going to check on a facility, but would not be here until after 1100. CM will attempt to speak with spouse later this morning. Tuesday 04/24 CM met with spouse, Alvin (patient was in surgery) regarding DC plans. Spouse states patient needs to go into a skilled bed but he was not sure of which one. CM met with patient to discuss initial discharge planning. Patient is in agreement to proceed with the assessment. Patient reports that she lives at home independent with her , Alvin Vogel (declined to give his number). Patient is alert/oriented. Stairs/steps: Ramp. PCP: Dr. Sykes. Pharmacy: [address] Patient has been able to obtain all of her prescribed medications. HHS: None. DME: Walker, W/C, Motorized w/c, Shower chair, commode in bedroom. Patient gives permission to speak with family members/care givers. Emergency contact: Lori Cadena (mother) [phone]. Patient has been ti Inpatient rehab @CAMPUS EXECUTIVE DIRECTOR X2, prior to returning to the medical floor. 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 CM discussed the availability of HH, Rehab, SNF, OP Therapy, DME services. Patient is in need of a Skilled bed. Patient denies the use of community resources STOCKROOM CLERK. Transportation at time of discharge: to be determined. Last DP export: 04/30/20 10:46 a Patient Name: MONE VOGEL Page 70630 at 1606 All edits/amendments must be made on the electronic document DICTATION DATE: 04/30/201605 NECKTIE OPERATOR POCKETS AND PIECES: JERMAIN 04/30/20 160 RPT#: [id number] DC DATE: STATUS: ADM IN [facility] [address] [place] [address] END OF REPORT
--- NOTE | 2020-04-30 17:08 | MORECARE ---
CASE MANAGEMENT DISCHARGE SUMMARY PATIENT: MONE VOGEL UNIT: [id number] ADM DATE: 04/23/20 AGE: 64 : 59 SEX: F ROOM/BED: D.5484 AUTHOR: SHANON,DOC PHYSICIAN: REFERRING PHYSICIAN: FREDDY PATINO DO DATE OF SERVICE: 04/30/20 Discharge Plan Patient Name: MONE VOGEL Facility: [facility]:[place] : 1955 Planned Disposition: Intermediate Facility Anticipated Discharge Date: Discharge Date: Expected LOS: 0 Initial Reviewer: [email or web address] Initial Review Date: 04/23/2020 Generated: 04/30/20 6:08 pm Comments DCP- Discharge Planning Updated by [id number]: Leila Zheng on 04/30/20 4:[address] 1705: CM contacted Kelly, with [facility], regarding placement. Kelly has questions for patient, provided her with the patient's number for contact. 1550: Tyesha, with [facility] is here to interview patient. Provided additional information for Tyesha regarding referral. 04/30: Contacted by Ge with [facility]. The facility is looking over the patient's paperwork/financial to determine if they can accept patient. [facility] have declined. We are still pending HD days. Hepatitis panel is available. 04/29: CAMI has been in contact with Aleksandar, with [facility] and Tyesha, with [facility] and [place] SNF's. DCP- Discharge Planning Updated by [id number]: Leila Zheng on 04/28/20 3:[address] CM contacted patient this morning regarding names for a SNF facility. Patient request [place], #2 [facility], [place], or a facility in [place]. CAMI has contacted Natalie Zazueta for [place] and Aleksandar for [facility]. CM also faxed to Tyesha, for a SNF either in or [place]. DCP- Discharge Planning Updated by [id number]: Leila Zheng on 04/27/20 2:[address] CAMI has attempted X2 this afternoon to obtain a name for a nursing facility, but unable to reach the patient's . CM attempted to speak with the patient this morning, but she was busy on a phone call. CM called back later and patient states that her was going to check on a facility, but would not be here until after 1100. CM will attempt to speak with spouse later this morning. Tuesday 04/24 CM met with spouse, Alvin (patient was in surgery) regarding DC plans. Spouse states patient needs to go into a skilled bed but he was not sure of which one. CM met with patient to discuss initial discharge planning. Patient is in agreement to proceed with the assessment. Patient reports that she lives at home independent with her , Alvin Vogel (declined to give his number). Patient is alert/oriented. Stairs/steps: Ramp. PCP: Dr. Sykes. Pharmacy: [address] Patient has been able to obtain all of her prescribed medications. HHS: None. DME: Walker, W/C, Motorized w/c, Shower chair, commode in bedroom. Patient gives permission to speak with family members/care givers. Emergency contact: Lori Cadena (mother) [phone]. Patient has been ti Inpatient rehab @HYDROSTATIC TESTER X2, prior to returning to the medical floor. 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 CM discussed the availability of HH, Rehab, SNF, OP Therapy, DME services. Patient is in need of a Skilled bed. Patient denies the use of community resources POWERTRAIN ENGINEER. Transportation at time of discharge: to be determined. Last DP export: 04/30/20 3:06 p Patient Name: MONE VOGEL Page 22239 at 1708 All edits/amendments must be made on the electronic document DICTATION DATE: 04/30/201707 NAVAL ARCHITECT: JERMAIN 04/30/201707 RPT#: [id number] DC DATE: STATUS: ADM IN [facility] [address] [place] [address] END OF REPORT
[2020-04-30 20:00] VITALS: BP 130/76
[2020-05-01 03:57] VITALS: BP 128/72
[2020-05-01 09:20] VITALS: BP 125/37
--- NOTE | 2020-05-01 12:33 | NUR ---
OT NOTE: PT COMPLETED BED MOB TASKS WITH MIN/MOD A. PT COMPLETED UB HYGIENE TASKS WITH SETUP-MIN A. 830-9 THANK YOU,MOOKIE CORBIN
[2020-05-01 13:53] VITALS: BP 151/60
--- NOTE | 2020-05-01 14:47 | MORECARE ---
CASE MANAGEMENT DISCHARGE SUMMARY PATIENT: MONE VOGEL UNIT: [id number] ADM DATE: 04/23/20 AGE: 64 : 59 SEX: F ROOM/BED: D.4761 AUTHOR: TRANG CLAUDIO PHYSICIAN: REFERRING PHYSICIAN: FREDDY PATINO DO DATE OF SERVICE: 05/01/20 Discharge Plan Patient Name: MONE VOGEL Facility: [facility]:[place] : 1955 Planned Disposition: Long-Term Facility Anticipated Discharge Date: Discharge Date: Expected LOS: 0 Initial Reviewer: [email or web address] Initial Review Date: 04/23/2020 Generated: 05/01/20 3:47 pm Comments DCP- Discharge Planning Updated by [email or web address]: Leila Zheng on 05/01/20 1:[address] Per yTesha, [facility] is not able to accept patient. Kelin, with [facility] has not been able to discuss finances with the patient (CAMI provided the patient's #[phone] for contact), the home phone has been disconnected. CAMI spoke with Kelly (finances with [facility]) last pm regarding same and she was to call the patient at that time. HD days cannot be set up until the accepting facility is verified. DCP- Discharge Planning Updated by [id number]: Leila Zheng on 04/30/20 4:[address] 1705: CAMI contacted Kelly, with [facility], regarding placement. Kelly has questions for patient, provided her with the patient's number for contact. 1550: Tyesha, with [facility] is here to interview patient. Provided additional information for Tyesha regarding referral. 04/30: [facility] The facility is looking over the patient's paperwork/financial to determine if they can accept patient. [facility] have declined. We are still pending HD days. Hepatitis panel is available. 04/29: CAMI has been in contact with Aleksandar, with [facility] and Tyesha, with [facility] and [place] SNF's. DCP- Discharge Planning Updated by [email or web address]: Leila Zheng on 04/28/20 3:[address] CM contacted patient this morning regarding names for a SNF facility. Patient request [place], #2 [facility], [place], or a facility in [place]. CM has contacted Natalie Zazueta for [place] and Aleksandar for [facility]. CM also faxed to Tyesha, for a SNF either in or [place]. DCP- Discharge Planning Updated by [email or web address]: Leila Zheng on 04/27/20 2:[address] CM has attempted X2 this afternoon to obtain a name for a nursing facility, but unable to reach the patient's . CM attempted to speak with the patient this morning, but she was busy on a phone call. CM called back later and patient states that her was going to check on a facility, but would not be here until after 1100. CM will attempt to speak with spouse later this morning. Tuesday 04/24 CM met with spouse, Alvin (patient was in surgery) regarding DC plans. Spouse states patient needs to go into a skilled bed but he was not sure of which one. CM met with patient to discuss initial discharge planning. Patient is in agreement to proceed with the assessment. Patient reports that she lives at home independent with her , Alvin Vogel (declined to give his number). Patient is alert/oriented. Stairs/steps: Ramp. PCP: Dr. Sykes. Pharmacy: [address] Patient has been able to obtain all of her prescribed medications. HHS: None. DME: Walker, W/C, Motorized w/c, Shower chair, commode in bedroom. Patient gives permission to speak with family members/care givers. Emergency contact: Lori Cadena (mother) [phone]. Patient has been ti Inpatient rehab @MEDIA PLANNER / BUYER X2, prior to returning to the medical floor. Patient is Independent with all ADL's, medication management STENOGRAPHER SECRETARY. CM discussed the availability of HH, Rehab, SNF, OP Therapy, DME services. Patient is in need of a Skilled bed. Patient denies the use of community resources STENOGRAPHER SECRETARY. Transportation at time of discharge: to be determined. Last DP export: 04/30/20 4:08 p Patient Name: MONE VOGEL Page [id number] at 1447 All edits/amendments must be made on the electronic document DICTATION DATE: 05/01/201446 X RAY ELECTRONICS WIREMAN: JERMAIN 05/01/201446 RPT#: [id number] DC DATE: STATUS: ADM IN [facility] [address] [place] [address] END OF REPORT
[2020-05-01 16:00] VITALS: BP 147/47
--- NOTE | 2020-05-01 19:05 | NUR ---
REPORT RECEIVED, PT CARE ASSUMED. INTRODUCED SELF AND WROTE NAME ON BOARD. PT SITTING UP IN BED, WATCHING TV, AAOX4. DENIES ANY NEEDS AT THIS TIME. BED IN LOWEST, SRX2, CALL LIGHT WITHIN REACH. WILL CTM.
[2020-05-01 20:45] VITALS: BP 149/57
--- NOTE | 2020-05-02 00:56 | NUR ---
PATIENT IS RESTING IN BED. WE DID PD AT 2330. WE LET SOLUTION DWELL FOR 45 MINUTES AND THEN DRAIN. SHE IS ALERT AND ORIENTED.
[2020-05-02 01:23] VITALS: BP 128/47
[2020-05-02 01:34] VITALS: BP 128/47
--- NOTE | 2020-05-02 03:29 | NUR ---
PATIENT IS SLEEPING IN BED. SHE IS ON ROOM AIR. PERITONEAL DIALYSIS WAS DONE AT 2330, AND WILL BE DONE AGAIN AT 0530. WE HAS A WOUND VAC ON HEEL. SHE HAS NO COMPLAINTS AT THIS TIME.
[2020-05-02 05:44] VITALS: BP 127/46
[2020-05-02 08:19] VITALS: BP 131/80
[2020-05-02 12:00] VITALS: BP 138/52
--- NOTE | 2020-05-02 15:30 | NUR ---
COMPLETION OF PD. PATIENT DENIES NEEDS, BED LOW POSITION, CALL LIGHT IN REACH. WILL CONTINUE TO MONITOR.
[2020-05-02 16:00] VITALS: BP 141/39
--- NOTE | 2020-05-02 18:31 | NUR ---
DRESSING TO RIGHT CALF CHANGED PER ORDERS. WET TO DRY BETADINE DRESSING PLACED. PATIENT TOLLERATED WELL.
--- NOTE | 2020-05-03 00:09 | NUR ---
INITIAL ROUNDS COMPLETED AT 1920 HRS. PT DENIED ANY DISCOMFORT. ASSESSMENT COMPLETED AT 2009 HRS. VSS. SR PER CM HR 76. ALERT AND ORIENTED TO PERSON, PLACE AND TIME. MART. L CHEST HEMOSPLIT NOTED. NO IV. RESERVE R ARM. LUNGS DIMINISHED IN BASES BILAT. MART. DRESSING TO UPPER R THIGH CLEAN,DRY AND INTACT. WOUND VAC NOTED TO L HEEL DRAINING SCANT FLUID. PT ON 1ST STEP AIR OVERLAY. PD DRAINAGE VERY SOW. PM FSBS 163. 8 UNITS INSULIN GIVEN SUB-Q TO UPPER L ARM PER S/S/. DIALYSIS NURSE HERE SPEAKING TO Alana ANDRADE APN. TO DO DIALYSIS ON MONDAY. SPOKE WITH Alana ANDRADE APN REGARDING VERY SLUGGISH FILLING. INFOMRD BY Alana ANDRADE APN IF NOT WORKING NEXT PD EXCHANGE TO HOLD AND INFORM IN AM. PERMISSION TO USE BLUE PORT OF L CHEST HEMOSPLIT OBTAINED TO GIVEN VANC THIS PM. TO PLACE 2.1CC OF HEPARIN 1000U/CC IN CATHETER AFTER VANC ADMINISTRATION. NEW ORDER RECEIVED AND NOTED. PM MEDS GIVEN. PT REFUSED MIRALAX. PT WATCHIONG TV AT THIS TIME. CALL LIGHT WITHIN REACH.
--- NOTE | 2020-05-03 00:23 | NUR ---
PD FLUID WOULD NOT FILL. FLUSHED WITH 10CC OF STERILE SALINE WITHOUT PROBLEMS BUT STILL WOULD NOT FILL. PROCEDURE HALTED AND STERILE PD CATH PLACED ON PD CATHETER.
--- NOTE | 2020-05-03 01:01 | NUR ---
CALLED AFTER HRS PHARMACY AT 2330 HRS. EXPLAINED INABILITY TO ORDER 3 1000U/CC HEPARIN VIALS TO FLUSH HEMOSPLIT WHEN VANC INFUSED. PHARAMIST NOT HELPFUL. PHARMACIST DID NOT COMPREHEND WHY NEEDED 1000U/CC VIALS. AT 0100 HEPARIN 5000U/CC DILUTED WITH 4CC NORMAL SLAINE TO EQUAL 1000U/CC. 2.1CC INFUSED INTO BLUE PORT. BLUE CAP PLACED ON HEMOSPLIT AFTER IT WAS HEPARINIZED.
--- NOTE | 2020-05-03 04:09 | NUR ---
PT RESTING WITH EYES CLOSED. RESP EVEN AND REGULAR. SR UP X2, CALL LIGHT WITHIN REACH AND BED AALRM ON.
--- NOTE | 2020-05-03 05:50 | NUR ---
VSS THROUGHOUT NIGHT. SR PER CM. PT DENIED ANY DISCOMFORT. NEEDS MET; WILL CONTINUE TO MONITOR.
[2020-05-03 08:00] VITALS: BP 145/48
[2020-05-03 12:00] VITALS: BP 152/52
--- NOTE | 2020-05-03 12:26 | NUR ---
PT C/O HAVING MULTIPLE DIALYSIS TMTS TODAY. AGREEABLE TO PARTICIPATE IN THERAPY. SUPINE TO SIT WITHOUT ASSIST BUT WITH VERBAL CUES TO GET TO SIDELIEING POSITION PRIOR TO SITTING UP. STATIC SITTING BALANCE WAS GOOD. PT ABLE TO WASH FACE, HANDS, AND ARMS WITH WASH CLOTH AND SET UP. PERFORMED UE/LE EXS WHILE ON EOB X 10 REPS FOR EACH EX. BACK TO BED WITH VERY MINIMAL ASSIST. REPOSITIONED BACK IN BED WITH MOD ASSIST X 2..ENCOURAGED PT TO ASSIST WITH R LEG AND BUES TO PULL UP IN BED. COLLINS ANTOINE, OTR/L [phone]
[2020-05-03 14:02] LABS: BASOPHILS 0.2 % (0-2); EOSINOPHILS 4.4 % (0-7); HEMATOCRIT 27.8 % (36.0-48.0); HEMOGLOBIN 8.4 g/dL (12-16); IMMATURE GRANULOCYTES 0.7 % (0-5); LYMPHOCYTES 13.3 % (15-50); MCH 29.2 pg (26.0-34.0); MCHC 30.2 g/dL (31.0-37.0); MCV 96.5 fL (80.0-100.0); MEAN PLATELET VOLUME 10.8 fL (7.4-10.4); MONOCYTES 9.9 % (2-11); NEUTROPHILS 71.5 % (40-80); PLATELET COUNT 251 10x3/uL (130-400); RBC 2.88 10x6/uL (4.00-5.40); RDW 18.7 % (11.5-14.5); WBC 8.9 10x3/uL (4.8-10.8)
[2020-05-03 14:19] LABS: ANION GAP 14.9 mmol/L (8-16); CALCIUM 9.4 mg/dL (8.5-10.1); CARBON DIOXIDE 24.1 mmol/L (21.0-32.0); CREATININE - SERUM 7.3 mg/dL (0.6-1.3)
[2020-05-03 14:25] LABS: VANCOMYCIN - RANDOM 24.1 ug/mL (10.0-20.0)
[2020-05-03 16:00] VITALS: BP 129/42
[2020-05-03 20:45] VITALS: BP 156/57
--- NOTE | 2020-05-03 23:06 | NUR ---
INITIAL ROUNDS COMPLETED AT 1919 HRS. PT RESTING WITH EYES CLOSED. RESP EVEN AND REGULAR. ASSESMENT COMPLETED AT 2044 HRS. VSS. SR PER CM HR 79. ALERT AND ORIENTED TO PERSON, PLACE AND TIME. MART. O2 2LNC. LUNGS DIMINISHED IN BASES BILAT. PD CATHETER TAPED TO ABD. L CHEST HEMOSPLIT CLEAN, DRY AND INTACT.ABD SOFT WTIH ACTIVE BS NOTED. WOUND VAC NOTED OT L HEEL DRAINING SMALL AMOUNTS OF BROWN EXUDATE. DRESSING TO UPPER R THIGH CLEAN,DRY AND INTACT. BUTTOCKS EXCORIATED WITH 3 STAGE 2 SORES APPROX 1CM IN DIAMETER TO UPPER R BUTTOCKS, COCCYX AND L BUTTOCKS. PT ON 1ST STEP AIR OVERLAY MATTRESS. PM FSBS 267. 16 UNITS ERG INSULIN GIVEN SUB-Q TO UPPER L ARM PER S/S. PM MEDS GIVEN. PT CURRENTLY RESTING WITH EYES CLOSED. RESP EVEN AND REGULAR. SR UP X2, CALL LIGHT WITHIN REACH AND BED ALARM ON.
[2020-05-04 01:40] VITALS: BP 149/59
--- NOTE | 2020-05-04 02:12 | NUR ---
PT RESTING WITH EYES CLOSED. RESP EVEN ADND REGULAR. SR UP X2, CALL LIGHT WITHIN REACH.
--- NOTE | 2020-05-04 03:42 | NUR ---
PT RESTING WITH EYES CLOSED.RESP EVEN AND REGULAR. SR UP X2, CALL LIGHT WITHIN REACH.
[2020-05-04 06:15] LABS: BASOPHILS 0.5 % (0-2); HEMATOCRIT 26.1 % (36.0-48.0); IMMATURE GRANULOCYTES 0.6 % (0-5); LYMPHOCYTES 15.2 % (15-50); MCHC 30.7 g/dL (31.0-37.0); MCV 94.6 fL (80.0-100.0); MEAN PLATELET VOLUME 11.1 fL (7.4-10.4); MONOCYTES 7.9 % (2-11); NEUTROPHILS 71.8 % (40-80); PLATELET COUNT 281 10x3/uL (130-400); RBC 2.76 10x6/uL (4.00-5.40); RDW 18.8 % (11.5-14.5); WBC 10.6 10x3/uL (4.8-10.8)
--- NOTE | 2020-05-04 06:29 | NUR ---
VSS THROUGHOTU NIGHT. SR PER CM. PT DENIED ANY DISCOMFORT. AM FSBS 233. 16 UNITS REG INSULIN GIVEN SUB-Q TO UPPER L ARM. NEEDS MET; WILL CONTINUE TO MONITOR.
[2020-05-04 06:47] LABS: ALBUMIN 2.1 g/dL (3.4-5.0); ANION GAP 11.2 mmol/L (8-16); BILIRUBIN - TOTAL 0.39 mg/dL (0.2-1.3); CALCIUM 10.5 mg/dL (8.5-10.1); CARBON DIOXIDE 25.8 mmol/L (21.0-32.0); CREATININE - SERUM 7.9 mg/dL (0.6-1.3); MAGNESIUM - SERUM 1.9 mg/dL (1.8-2.4); PHOSPHOROUS 3.5 mg/dL (2.5-4.9); PROTEIN - SERUM 5.5 g/dL (6.4-8.2)
[2020-05-04 07:06] VITALS: BP 155/54
[2020-05-04 08:00] VITALS: BP 127/64
[2020-05-04 08:07] LABS: APTT 34.9 SECONDS (22.8-39.4)
[2020-05-04 08:14] LABS: INR 1.24 (0.85-1.17); PROTIME 15.5 SECONDS (11.6-15.0)
[2020-05-04 11:00] VITALS: BP 152/70
--- NOTE | 2020-05-04 12:22 | MORECARE ---
CASE MANAGEMENT DISCHARGE SUMMARY PATIENT: MONE VOGEL UNIT: [id number] ADM DATE: 04/23/20 AGE: 64 : 59 SEX: F ROOM/BED: D.8889 AUTHOR: TRANG CLAUDIO PHYSICIAN: REFERRING PHYSICIAN: FREDDY PATINO DO DATE OF SERVICE: 05/04/20 Discharge Plan Patient Name: MONE VOGEL [facility] [facility] 1955 Planned Disposition: Care Home Facility Anticipated Discharge Date: Discharge Date: Expected LOS: 0 Initial Reviewer: [id number] Initial Review Date: 04/23/2020 Generated: 05/04/20 1:21 pm Comments DCP- Discharge Planning Updated by [id number]: Leila Zheng on 05/04/20 11:[address] There are no beds available at [facility], due to staffing and HD, [facility] is unable to meet her needs, [facility] (patient refuses to give financial information), [facility] is pending an answer. Also, pending HD site/days. DCP- Discharge Planning Updated by [id number]: Leila Zheng on 05/01/20 1:[address] Per Tyesha, [facility] is not able to accept patient. Kelin with [facility] has not been able to discuss finances with the patient (CAMI provided the patient's #[phone] for contact), the home phone has been disconnected. CAMI spoke with Kelly (finances with [facility] [place] last pm regarding same and she was to call the patient at that time. HD days cannot be set up until the accepting facility is verified. DCP- Discharge Planning Updated by [id number]: Leila Zheng on 04/30/20 4:[address] 1705: CAMI contacted Kelly, [facility], regarding [facility]. Kelly has questions for patient, provided her with the patient's number for contact. 1550: Tyesha, with [facility] is here to interview patient. Provided additional information for Tyesha regarding referral. 04/30: Contacted by Ge with [facility]. The facility is looking over the patient's paperwork/financial to determine if they can accept patient. The [facility] have declined. We are still pending HD days. Hepatitis panel is available. 04/29: CM has been in contact with Aleksandar, with [facility] and Tyesha, with [facility] and [place] SNF's. DCP- Discharge Planning Updated by [id number]: Leila Zheng on 04/28/20 3:[address] CM contacted patient this morning regarding names for a SNF facility. Patient request [facility], [facility], [place], or a facility in [place]. CM has contacted Natalie Guerraut for [facility] and Aleksandar for [facility]. CM also faxed to Tyesha, for a SNF either in or [place]. DCP- Discharge Planning Updated by [id number]: Leila Corraloy on 04/27/20 2:[address] CM has attempted X2 this afternoon to obtain a name for a nursing facility, but unable to reach the patient's . CM attempted to speak with the patient this morning, but she was busy on a phone call. CM called back later and patient states that her was going to check on a facility, but would not be here until after 1100. CM will attempt to speak with spouse later this morning. Tuesday 04/24 CM met with spouse, Alvin (patient was in surgery) regarding DC plans. Spouse states patient needs to go into a skilled bed but he was not sure of which one. CM met with patient to discuss initial discharge planning. Patient is in agreement to proceed with the assessment. Patient reports that she lives at home independent with her , Alvin Vogel (declined to give his number). Patient is alert/oriented. Stairs/steps: Ramp. PCP: Dr. Sykes. Pharmacy: [address] Patient has been able to obtain all of her prescribed medications. HHS: None. DME: Walker, W/C, Motorized w/c, Shower chair, commode in bedroom. Patient gives permission to speak with family members/care givers. Emergency contact: Lori Cadena (mother) [phone]. Patient has been ti Inpatient rehab @MANAGER SCHEDULING X2, prior to returning to the medical floor. 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 CM discussed the availability of HH, Rehab, SNF, OP Therapy, DME services. Patient is in need of a Skilled bed. Patient denies the use of community resources TURPENTINE FARMER. Transportation at time of discharge: to be determined. Last DP export: 05/01/20 1:47 p Patient Name: MONE VOGEL Page [id number] at 1222 All edits/amendments must be made on the electronic document DICTATION DATE: 05/04/20 122 AREA INTELLIGENCE TECHNICIAN: JERMAIN 05/04/20 1221 RPT#: [id number] DC DATE: STATUS: ADM IN [facility] [address] [place] [address] END OF REPORT
[2020-05-04 15:00] VITALS: BP 133/70
--- NOTE | 2020-05-04 19:22 | NUR ---
PT'S PD FLUSH DONE PER ORDER. 1000 ML INFUSED WITH HEPARIN. 1100 OUT WHEN DRAINED.
[2020-05-04 20:00] VITALS: BP 163/56
--- NOTE | 2020-05-04 20:34 | NUR ---
REPORT RECEIVED, WILL CONT POC. PT A&O, UP IN BED. NO S/S OF DISTRESS OBSERVED. RR EVEN AND UNLABORED ON 2L NC. PT DENIES NEEDS AT THIS TIME. CALL LIGHT IN REACH. BED LOCKED AND LOWERED. WILL CONT TO MONITOR. ASSESSMENT COMPLETED AT THIS TIME.
[2020-05-05 04:00] VITALS: BP 117/54
--- NOTE | 2020-05-05 07:15 | NUR ---
RECEIVE SHIFT REPORT. RESTING IN BED. ALERT AND ORIENTED. NO SIGNS OF DISTRESS. WILL CONTINUE PLAN OF CARE AND SAFETY PRECAUTIONS.
[2020-05-05 08:00] VITALS: BP 147/57
--- NOTE | 2020-05-05 09:16 | NUR ---
OT NOTE: (DOS 05-04-20) PT COMPLETED SUPINE TO SIT WITH MIN A. PT COMPLETED EOB SITTING WITH SBA. PT COMPLETED BUE AROM EXS AT EOB WITH SBA. PT COMPLETED FACE HYGIENE WITH SET AT EOB. [phone] THANK YOU,MOOKIE CORBIN
[2020-05-05 11:00] VITALS: BP 163/58
--- NOTE | 2020-05-05 11:27 | NUR ---
Nutrition Follow-up: PO intake fluctuating. 0% recorded this AM. Drinking some Nepro. Awaiting SNF placement. Diet: Renal ADA, Nepro with meals PO intake: 0-100% No new wt; last wt: 281# (04/24) Last BM: 05/03 Labs noted: Glu 187 Meds noted: Lantus, Novolog, Humulin, Colace, Carafate, Floranex, Tums, Protonix, Lasix -Encourage PO intake and honor food preferences within diet restrictions. -Need new wt. -RD following.
--- NOTE | 2020-05-05 12:01 | MORECARE ---
CASE MANAGEMENT DISCHARGE SUMMARY PATIENT: MONE VOGEL UNIT: [id number] ADM DATE: 04/23/20 AGE: 64 : 59 SEX: F ROOM/BED: D.2107 AUTHOR: TRANG CLAUDIO PHYSICIAN: REFERRING PHYSICIAN: FREDDY PATINO DO DATE OF SERVICE: 05/05/20 Discharge Plan Patient Name: MONE VOGEL Facility: [facility]:[place] : 1955 Planned Disposition: Assisted Facility Anticipated Discharge Date: Discharge Date: Expected LOS: 0 Initial Reviewer: [email or web address] Initial Review Date: 04/23/2020 Generated: 05/05/20 1:00 pm Comments DCP- Discharge Planning Updated by [id number]: Leila Zheng on 05/05/20 10:[address] 0959: CAMI left a message with Ld [facility], to inquire about a chair/day in [place]. Per Teysha, [facility] has accepted patient pending HD place. CAMI contacted Indira with [facility] facility is getting touch with Dr. Alonso to verify that the patient will be released to [facility]. Late entry 05/04: CAMI spoke with [facility]d [facility] regarding an acceptance from [facility] pending HD chair in [place]. DCP- Discharge Planning Updated by [id number]: Leila Zheng on 05/04/20 11:[address] There are no beds available at [facility], due to staffing and HD, [facility] is unable to meet her needs, [facility] (patient refuses to give financial information), [facility] is pending an answer. Also, pending HD site/days. DCP- Discharge Planning Updated by [email or web address]: Leila Zheng on 05/01/20 1:[address] Per Tyesha, [facility] is not able to accept patient. Kelin, with [facility] has not been able to discuss finances with the patient (CAMI provided the patient's #[phone] for contact), the home phone has been disconnected. CAMI spoke with Kelly (finances with [facility]) last pm regarding same and she was to call the patient at that time. HD days cannot be set up until the accepting facility is verified. DCP- Discharge Planning Updated by [email or web address]: Leila Zheng on 04/30/20 4:[address] 1705: CM contacted Kelly, with [facility], regarding placement. Kelly has questions for patient, provided her with the patient's number for contact. 1550: Tyesha, with [facility] is here to interview patient. Provided additional information for Tyesha regarding referral. 04/30: Contacted by Ge with [facility]. The facility is looking over the patient's paperwork/financial to determine if they can accept patient. [facility] have declined. We are still pending HD days. Hepatitis panel is available. 04/29: CM has been in contact with Aleksandar, with [facility] and Tyesha, with [facility] and [place] SNF's. DCP- Discharge Planning Updated by [email or web address]: Leila Zheng on 04/28/20 3:[address] CM contacted patient this morning regarding names for a SNF facility. Patient request [facility], #2 [facility], [place], or a facility in [place]. CM has contacted Natalie Zazueta for [facility] and Aleksandar for [facility]. CM also faxed to Tyesha, for a SNF either in or [place]. DCP- Discharge Planning Updated by [id number]: Leila Zheng on 04/27/20 2:[address] CM has attempted X2 this afternoon to obtain a name for a nursing facility, but unable to reach the patient's . CM attempted to speak with the patient this morning, but she was busy on a phone call. CM called back later and patient states that her was going to check on a facility, but would not be here until after 1100. CM will attempt to speak with spouse later this morning. Tuesday 04/24 CM met with spouse, Alvin (patient was in surgery) regarding DC plans. Spouse states patient needs to go into a skilled bed but he was not sure of which one. CM met with patient to discuss initial discharge planning. Patient is in agreement to proceed with the assessment. Patient reports that she lives at home independent with her , Alvin Vogel (declined to give his number). Patient is alert/oriented. Stairs/steps: Ramp. PCP: Dr. Sykes. Pharmacy: [address] Patient has been able to obtain all of her prescribed medications. HHS: None. DME: Walker, W/C, Motorized w/c, Shower chair, commode in bedroom. Patient gives permission to speak with family members/care givers. Emergency contact: Lori Cadena (mother) [phone]. Patient has been ti Inpatient rehab @CARPENTRY SUPERVISOR X2, prior to returning to the medical floor. Patient is Independent with all ADL's, medication management ARTIST BLACKSMITH. CM discussed the availability of HH, Rehab, SNF, OP Therapy, DME services. Patient is in need of a Skilled bed. Patient denies the use of community resources ARTIST BLACKSMITH. Transportation at time of discharge: to be determined. Last DP export: 05/04/20 11:22 a Patient Name: MONE VOGEL Page [phone] at 1201 All edits/amendments must be made on the electronic document DICTATION DATE: 05/05/20 1200 AIR HAMMER OPERATOR: JERMAIN 05/05/20 1200 RPT#: [id number] DC DATE: STATUS: ADM IN [facility] [address] [place] [address] END OF REPORT
--- NOTE | 2020-05-05 12:24 | MORECARE ---
CASE MANAGEMENT DISCHARGE SUMMARY PATIENT: MONE VOGEL UNIT: [id number] ADM DATE: 04/23/20 AGE: 64 : 59 SEX: F ROOM/BED: D.0150 AUTHOR: TRANG CLAUDIO PHYSICIAN: REFERRING PHYSICIAN: FREDDY PATINO DO DATE OF SERVICE: 05/05/20 Discharge Plan Patient Name: MONE VOGEL Facility: [facility]:[place] : 1955 Planned Disposition: Assisted Facility Anticipated Discharge Date: Discharge Date: Expected LOS: 0 Initial Reviewer: [email or web address] Initial Review Date: 04/23/2020 Generated: 05/05/20 1:23 pm Comments DCP- Discharge Planning Updated by [email or web address]: Leila Zheng on 05/05/20 11:[address] Ld Brenner, [facility], with HD [place] unit, is pending acceptance in [place]. 0959: CM left a message with Ld Brenner, to inquire about a chair/day in [place]. Per Tyesha, [facility] has accepted patient pending HD place. CAMI contacted Fairborn, with [facility] facility is getting touch with Dr. Alonso to verify that the patient will be released to [facility]. Late entry 05/04: CM spoke with Ld Brenner regarding an acceptance from [facility] pending HD chair in [place]. DCP- Discharge Planning Updated by [email or web address]: Leila Zheng on 05/04/20 11:[address] There are no beds available at [facility], due to staffing and HD, [facility] is unable to meet her needs, [facility] (patient refuses to give financial information), [facility] is pending an answer. Also, pending HD site/days. DCP- Discharge Planning Updated by [id number]: Leila Zheng on 05/01/20 1:[address] Per Tyesha, [facility] is not able to accept patient. Kelin, with [facility] has not been able to discuss finances with the patient (CM provided the patient's #[phone] for contact), the home phone has been disconnected. CAMI spoke with Klely (finances with [facility]) last pm regarding same and she was to call the patient at that time. HD days cannot be set up until the accepting facility is verified. DCP- Discharge Planning Updated by [email or web address]: Leila Zheng on 04/30/20 4:[address] 1705: CM contacted Kelly, with [facility], regarding placement. Kelly has questions for patient, provided her with the patient's number for contact. 1550: Tyesha, with [facility] is here to interview patient. Provided additional information for Tyesha regarding referral. 04/30: Contacted by Ge with [facility]. The facility is looking over the patient's paperwork/financial to determine if they can accept patient. The [facility] have declined. We are still pending HD days. Hepatitis panel is available. 04/29: CM has been in contact with Aleksandar, with [facility] and Tyesha, with [facility] and [place] SNF's. DCP- Discharge Planning Updated by [id number]: Leila Zheng on 04/28/20 3:[address] CM contacted patient this morning regarding names for a SNF facility. Patient request [facility], [facility], [facility], or a facility in [place]. CM has contacted Natalie Zazueta for [facility] and Aleksandar for [facility]. CM also faxed to Tyesha, for a SNF either in or [place]. DCP- Discharge Planning Updated by [email or web address]: Leila Zheng on 04/27/20 2:[address] CM has attempted X2 this afternoon to obtain a name for a nursing facility, but unable to reach the patient's . CM attempted to speak with the patient this morning, but she was busy on a phone call. CM called back later and patient states that her was going to check on a facility, but would not be here until after 1100. CM will attempt to speak with spouse later this morning. Tuesday 04/24 CM met with spouse, Alvin (patient was in surgery) regarding DC plans. Spouse states patient needs to go into a skilled bed but he was not sure of which one. CM met with patient to discuss initial discharge planning. Patient is in agreement to proceed with the assessment. Patient reports that she lives at home independent with her , Alvin Vogel (declined to give his number). Patient is alert/oriented. Stairs/steps: Ramp. PCP: Dr. Sykes. Pharmacy: [address] Patient has been able to obtain all of her prescribed medications. HHS: None. DME: Walker, W/C, Motorized w/c, Shower chair, commode in bedroom. Patient gives permission to speak with family members/care givers. Emergency contact: Lori Cadena (mother) [phone]. Patient has been ti Inpatient rehab @DIRECTOR COST X2, prior to returning to the medical floor. 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 CM discussed the availability of HH, Rehab, SNF, OP Therapy, DME services. Patient is in need of a Skilled bed. Patient denies the use of community resources MILL CONTROLLER. Transportation at time of discharge: to be determined. Last DP export: 05/05/20 11:01 a Patient Name: MONE VOGEL Page [id number] at 1224 All edits/amendments must be made on the electronic document DICTATION DATE: 05/05/20 1223 PHYSICAL THERAPY INSTRUCTOR: JERMAIN 05/05/20 1223 RPT#: [id number] DC DATE: STATUS: ADM IN [facility] [address] [place] [address] END OF REPORT
--- NOTE | 2020-05-05 14:56 | MORECARE ---
CASE MANAGEMENT DISCHARGE SUMMARY PATIENT: MONE VOGEL UNIT: [id number] ADM DATE: 04/23/20 AGE: 64 : 59 SEX: F ROOM/BED: D.3234 AUTHOR: TRANG CLAUDIO PHYSICIAN: REFERRING PHYSICIAN: FREDDY PATINO DO DATE OF SERVICE: 05/05/20 Discharge Plan Patient Name: MONE VOGEL Facility: [facility]:[place] : 1955 Planned Disposition: [facility] Facility Anticipated Discharge Date: 05/06/20 Discharge Date: Expected LOS: 13 Initial Reviewer: [id number] Initial Review Date: 04/23/2020 Generated: 05/05/20 3:55 pm Comments DCP- Discharge Planning Updated by [id number]: Leila Zheng on 05/05/20 1:[address] Per Tyesha with [facility], the patient has been accepted and will admit 05/06 after HD here at [facility]. Patient will DC after HD to [facility] to a SNF bed. Patient will transport via [facility]. HD schedule is: M//Fr 0630 at the [facility] HD unit, with [place] van transportation. notified Dr. Patino of same and she is in agreement to same. Ld Brenner, [facility], with HD [place] unit, is pending acceptance in [place]. 0959: CM left a message with Ld Brenner, to inquire about a chair/day in [place]. Per Tyesha, [facility] has accepted patient pending HD place. [facility] Al[facility] to verify that the patient will be released to [facility]. Late entry 05/04: CM spoke with Ld Brenner regarding an acceptance from [facility] pending HD chair in [place]. DCP- Discharge Planning Updated by [email or web address]: Leila Zheng on 05/04/20 11:[address] There are no beds available at [facility], due to staffing and HD, [facility] is unable to meet her needs, [facility] (patient refuses to give financial information), [facility] is pending an answer. Also, pending HD site/days. DCP- Discharge Planning Updated by [id number]: Leila Zheng on 05/01/20 1:[address] Per Tyesha, [facility] is not able to accept patient. Kelin, with [facility] has not been able to discuss finances with the patient (CAMI provided the patient's #[phone] for contact), the home phone has been disconnected. CAMI spoke with Kelly (finances with [facility]) last pm regarding same and she was to call the patient at that time. HD days cannot be set up until the accepting facility is verified. DCP- Discharge Planning Updated by [id number]: Leila Zheng on 04/30/20 4:[address] 1705: CAMI contacted Kelly, with [facility], regarding placement. Kelly has questions for patient, provided her with the patient's number for contact. 1550: Tyesha, with [facility] is here to interview patient. Provided additional information for Tyesha regarding referral. 04/30: Contacted by Ge with [facility]. The facility is looking over the patient's paperwork/financial to determine if they can accept patient. [facility] have declined. We are still pending HD days. Hepatitis panel is available. 04/29: CAMI has been in contact with Aleksandar, with [facility] and Tyesha, with [facility] and [place] SNF's. DCP- Discharge Planning Updated by [id number]: Leila Zheng on 04/28/20 3:[address] CM contacted patient this morning regarding names for a SNF facility. Patient request [facility], [facility], [facility], or a facility in [place]. CM has contacted Natalie Zazueta for [facility] and Aleksandar for [facility]. CM also faxed to Tyesha, for a SNF either in or [place]. DCP- Discharge Planning Updated by [id number]: Leila Zheng on 04/27/20 2:[address] CM has attempted X2 this afternoon to obtain a name for a nursing facility, but unable to reach the patient's . CM attempted to speak with the patient this morning, but she was busy on a phone call. CM called back later and patient states that her was going to check on a facility, but would not be here until after 1100. CM will attempt to speak with spouse later this morning. Tuesday 04/24 CM met with spouse, Alvin (patient was in surgery) regarding DC plans. Spouse states patient needs to go into a skilled bed but he was not sure of which one. CM met with patient to discuss initial discharge planning. Patient is in agreement to proceed with the assessment. Patient reports that she lives at home independent with her , Alvin Vogel (declined to give his number). Patient is alert/oriented. Stairs/steps: Ramp. PCP: Dr. Sykes. Pharmacy: [address] Patient has been able to obtain all of her prescribed medications. HHS: None. DME: Walker, W/C, Motorized w/c, Shower chair, commode in bedroom. Patient gives permission to speak with family members/care givers. Emergency contact: Lori Cadena (mother) [phone]. Patient has been ti Inpatient rehab @AUDIOLOGY DIRECTOR X2, prior to returning to the medical floor. 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 CM discussed the availability of HH, Rehab, SNF, OP Therapy, DME services. Patient is in need of a Skilled bed. Patient denies the use of community resources GAS PUMP ATTENDANT. Transportation at time of discharge: to be determined. Last DP export: 05/05/20 11:24 a Patient Name: MONE VOGEL Page [id number] at 2375 All edits/amendments must be made on the electronic document DICTATION DATE: 05/05/201454 PRESSROOM WORKER: JERMAIN 05/05/20 145 RPT#: [id number] DC DATE: STATUS: ADM IN [facility] [address] [place] [address] END OF REPORT
--- NOTE | 2020-05-05 16:13 | NUR ---
OT NOTE: PT PERFORMED BETTER TODAY. SHE WAS ABLE TO PERFORM SUPINE TO SIT AND SIT TO SUPINE WITH EXT TIME AND VERBAL CUES FOR POSITIONING.. NO TACTILE CUES REQUIRED. TOLERATED SITTING UP ON EOB WITHOUT SUPPORT X 8-10 MIN; UE AND LE EXS ; SIT TO STAND WITH MOD ASSIST X 2 WITH WALKER AND PHYSICAL ASSIST FOR NWB ON R FOOT. TOLERATED STANDING FOR APPROX 1 MIN. PERFORMED SIMPLE GROOMING WITH SET UP. ASSISTED AND POSITIONED UP IN BED [facility] MOD ASSIST X 2. COLLINS ANTOINE, OTR/L [phone]
[2020-05-05 17:59] LABS: ALBUMIN 2.1 g/dL (3.4-5.0); ANION GAP 16.5 mmol/L (8-16); CALCIUM 9.8 mg/dL (8.5-10.1); CARBON DIOXIDE 22.7 mmol/L (21.0-32.0); CREATININE - SERUM 9.2 mg/dL (0.6-1.3); PHOSPHOROUS 3.1 mg/dL (2.5-4.9); POTASSIUM - SERUM 4.2 mmol/L (3.5-5.1)
[2020-05-05 21:46] LABS: BASOPHILS 0.2 % (0-2); EOSINOPHILS 3.3 % (0-7); HEMATOCRIT 23.9 % (36.0-48.0); IMMATURE GRANULOCYTES 0.3 % (0-5); LYMPHOCYTES 13.7 % (15-50); MCH 28.8 pg (26.0-34.0); MEAN PLATELET VOLUME 10.8 fL (7.4-10.4); NEUTROPHILS 75.5 % (40-80); PLATELET COUNT 254 10x3/uL (130-400); RBC 2.57 10x6/uL (4.00-5.40); RDW 18.7 % (11.5-14.5); WBC 9.3 10x3/uL (4.8-10.8)
[2020-05-05 21:47] LABS: HEMOGLOBIN 7.4 g/dL (12-16)
[2020-05-05 22:30] VITALS: BP 148/48
[2020-05-06 00:30] VITALS: BP 132/49
[2020-05-06 04:30] VITALS: BP 138/46
[2020-05-06] MEDS ORDERED: LANTUS INS100 UNITS/ SC (06:52)
[2020-05-06 08:46] VITALS: BP 179/67
[2020-05-06 11:59] VITALS: BP 175/82
--- NOTE | 2020-05-06 14:01 | NUR ---
CALLED REPORT TO YOEL HELM AT [facility], ALL QUESTIONS ANSWERED, NO OTHER NEEDS NOTED, INSTRUCTED TO CALL BACK IF ANY FURTHER QUESTIONS, VERBALIZED UNDERSTANDING,
[2020-05-06 14:09] LABS: ALBUMIN 2.6 g/dL (3.4-5.0); ANION GAP 11.4 mmol/L (8-16); BILIRUBIN - TOTAL 0.49 mg/dL (0.2-1.3); CALCIUM 9.9 mg/dL (8.5-10.1); CARBON DIOXIDE 27.4 mmol/L (21.0-32.0); POTASSIUM - SERUM 3.8 mmol/L (3.5-5.1); PROTEIN - SERUM 5.1 g/dL (6.4-8.2)
[2020-05-06 14:10] LABS: CREATININE - SERUM 6.6 mg/dL (0.6-1.3)
[2020-05-06 15:37] LABS: BASOPHILS 0.4 % (0-2); EOSINOPHILS 3.6 % (0-7); HEMATOCRIT 25.4 % (36.0-48.0); HEMOGLOBIN 7.9 g/dL (12-16); IMMATURE GRANULOCYTES 0.8 % (0-5); LYMPHOCYTES 12.9 % (15-50); MCH 29.3 pg (26.0-34.0); MCHC 31.1 g/dL (31.0-37.0); MCV 94.1 fL (80.0-100.0); MEAN PLATELET VOLUME 11.5 fL (7.4-10.4); NEUTROPHILS 73.3 % (40-80); PLATELET COUNT 273 10x3/uL (130-400); RDW 18.9 % (11.5-14.5); WBC 10.3 10x3/uL (4.8-10.8)
--- NOTE | 2020-05-06 15:52 | NUR ---
[facility] SENT SMALL WHEELCHAIR, PT WAS UNABLE TO FIT IN CHAIR, TRANSPORT ON THEIR WAYU BACK TO GET BIGGER CHAIR, WILL BE ANOTHER 1.5 HOURS BEFORE THEY CAN RETURN, WILL WAIT FOR RETURN
--- NOTE | 2020-05-06 17:20 | NUR ---
WENT OVER DISCHARGE INSTRUCTIONS WITH PT, ALL QUESTIONS ANSWERED, WILL MONITOR
--- NOTE | 2020-05-06 17:35 | NUR ---
[facility] HERE TO GET PT, TRANSFERRED PT TO WHEELCHAIR PER TWO ASSIST, CLAMPED WOUND VAC, GATHERED ALL PERSONAL BELONGINGS AND TOOK PT AND BELONGINGS TO VAN, NO OTHER NEEDS NOTED
--- NOTE | 2020-05-06 17:54 | NUR ---
MARTINEZ WOUND VAC NUMBER [id number] FROM ROOM 210, PLACED IN WHITE BAG AND PUT IN SOILED UTILITY ROOM,
--- NOTE | 2020-05-06 21:37 | NUR ---
OT NOTE: PT COMPLETED FACE AND HAND HYGIENE WITH SETUP. [phone] TONEY MARIA COTA
--- NOTE | 2020-05-07 13:06 | MORECARE ---
CASE MANAGEMENT DISCHARGE SUMMARY PATIENT: PHOEBE VOGEL UNIT: [id number] ADM DATE: 04/23/20 AGE: 64 : 59 SEX: F ROOM/BED: D.4250 AUTHOR: SHANON,TRANG PHYSICIAN: REFERRING PHYSICIAN: FREDDY PATINO DO DATE OF SERVICE: 05/07/20 Discharge Plan Patient Name: PHOEBE VOGEL Facility: [facility]:[place] : 1955 Planned Disposition: [facility] Facility Anticipated Discharge Date: 05/06/20 Discharge Date: 05/06/2020 Expected LOS: 13 Initial Reviewer: [id number] Initial Review Date: 04/23/2020 Generated: 05/07/20 2:06 pm Comments DCP- Discharge Planning Updated by [id number]: Leila Zheng on 05/05/20 1:[address] Per Tyesha with [facility], the patient has been accepted and will admit 05/06 after HD here at [facility]. Patient will DC after HD to [facility] to a SNF bed. Patient will transport via [place] van. HD schedule is: M/W/Fr 0630 at the [facility] HD unit, with [place] van transportation. CAMI notified Dr. Patino of same and she is in agreement to same. Ld Brenner, states [facility], with HD [place] unit, is pending acceptance in [place]. 0959: CM left a message with Ld Brenner, to inquire about a chair/day in [place]. Per Tyesha, [facility] has accepted patient pending HD place. CM contacted Indira, [facility] Dr. Alonso to verify that the patient will be released to [facility]. Late entry 05/04: CAMI spoke with Ld Brenner regarding an acceptance from [facility] pending HD chair in [place]. DCP- Discharge Planning Updated by [id number]: Leila Zheng on 05/04/20 11:[address] There are no beds available at [facility], due to staffing and HD, [facility] is unable to meet her needs, [facility] (patient refuses to give financial information), [facility] is pending an answer. Also, pending HD site/days. DCP- Discharge Planning Updated by [id number]: Leila Zheng on 05/01/20 1:[address] Per Tyesha, [facility] is not able to accept patient. Kelin, with [facility] has not been able to discuss finances with the patient (CAMI provided the patient's #[phone] for contact), the home phone has been disconnected. CAMI spoke with Kelly (finances with [facility]) last pm regarding same and she was to call the patient at that time. HD days cannot be set up until the accepting facility is verified. DCP- Discharge Planning Updated by [id number]: Leila Zheng on 04/30/20 4:[address] 1705: CAMI contacted Kelly, with [facility], regarding placement. Kelly has questions for patient, provided her with the patient's number for contact. 1550: Tyesha, with [facility] is here to interview patient. Provided additional information for Tyesha regarding referral. 04/30: Contacted by Ge with [facility]. The facility is looking over the patient's paperwork/financial to determine if they can accept patient. [facility] have declined. We are still pending HD days. Hepatitis panel is available. 04/29: CAMI has been in contact with Aleksandar, with [facility] and Tyesha, with [facility] and [place] SNF's. DCP- Discharge Planning Updated by [id number]: Leila Zheng on 04/28/20 3:[address] CM contacted patient this morning regarding names for a SNF facility. Patient request [facility], #2 [facility], [place], or a facility in [place]. CM has contacted Natalie Zazueta for [facility] and Aleksandar for [facility]. CM also faxed to Tyesha, for a SNF either in or [place]. DCP- Discharge Planning Updated by [id number]: Leila Zheng on 04/27/20 2:[address] CM has attempted X2 this afternoon to obtain a name for a nursing facility, but unable to reach the patient's . CM attempted to speak with the patient this morning, but she was busy on a phone call. CM called back later and patient states that her was going to check on a facility, but would not be here until after 1100. CM will attempt to speak with spouse later this morning. Tuesday 04/24 CM met with spouse, Alvin (patient was in surgery) regarding DC plans. Spouse states patient needs to go into a skilled bed but he was not sure of which one. CM met with patient to discuss initial discharge planning. Patient is in agreement to proceed with the assessment. Patient reports that she lives at home independent with her , Alvin Vogel (declined to give his number). Patient is alert/oriented. Stairs/steps: Ramp. PCP: Dr. Sykes. Pharmacy: [address] Patient has been able to obtain all of her prescribed medications. HHS: None. DME: Walker, W/C, Motorized w/c, Shower chair, commode in bedroom. Patient gives permission to speak with family members/care givers. Emergency contact: Lori Cadena (mother) [phone]. Patient has been ti Inpatient rehab @PREFITTER X2, prior to returning to the medical floor. Patient is Independent with all ADL's, medication management SUPERVISOR DIALS. CM discussed the availability of HH, Rehab, SNF, OP Therapy, DME services. Patient is in need of a Skilled bed. Patient denies the use of community resources SUPERVISOR DIALS. Transportation at time of discharge: to be determined. Coverage Notice Reviewer: [id number] Kati Zheng Notice Issued Date-Time: 05/05/2020 15:38 Notice Type: Patient Choice Letter Notice Delivered To: Patient Relationship to Patient: Self Aircraft Designer Name: Phoebe Vogel Delivery Method: HAND - Hand Delivered [place] Days: Prior Verbal Notification: Recipient Understood Notice: Yes Recipient Signature: Yes Med Rec Note Co-signed by Attending: Coverage Notice Comment: Patient choice for [facility]. Original to chart. Last DP export: 05/05/20 1:56 p Patient Name: PHOEBE VOGEL Page 00485 at 1306 All edits/amendments must be made on the electronic document DICTATION DATE: 05/07/20 1306 C D REACTOR OPERATOR: JERMAIN 05/07/20 1306 RPT#: [id number] DC DATE:05/06/20 STATUS: DIS IN [facility] [address] [place] [address] END OF REPORT
== END 2020-05-06 18:21 | DRG 264 ==
LOC: D.OPS 18:58 → D.M2 18:59 → D.OPS 04-24 09:45 → D.M2 05-06 18:21
PROVIDERS: Internal Medicine; Internal Medicine Nephrology; Specialist; Surgery; ADMIT Internal Medicine; ATTEND Internal Medicine
PROC: 0JBR0ZZ Excision of Left Foot Subcutaneous Tissue and Fascia, Open Approach (ICD-10-PCS; 2020-04-24)
PROC: 0JBL0ZZ Excision of Right Upper Leg Subcutaneous Tissue and Fascia, Open Approach (ICD-10-PCS; 2020-04-24)
PROC: 05HN33Z Insertion of Infusion Device into Left Internal Jugular Vein, Percutaneous Approach (ICD-10-PCS; 2020-04-24)
PROC: B544ZZA Ultrasonography of Left Jugular Veins, Guidance (ICD-10-PCS; 2020-04-24)
PROC: B5181ZZ Fluoroscopy of Superior Vena Cava using Low Osmolar Contrast (ICD-10-PCS; 2020-04-24)
PROC: 0JH63XZ Insertion of Tunneled Vascular Access Device into Chest Subcutaneous Tissue and Fascia, Percutaneous Approach (ICD-10-PCS; principal; 2020-04-24 09:45)
PROC: B50W1ZZ Plain Radiography of Dialysis Shunt/Fistula using Low Osmolar Contrast (ICD-10-PCS; 2020-05-04)
DX: T80.211A Bloodstream infection due to central venous catheter, initial encounter (principal); L89.893 Pressure ulcer of other site, stage 3; L89.894 Pressure ulcer of other site, stage 4; L89.624 Pressure ulcer of left heel, stage 4; A41.9 Sepsis, unspecified organism; T82.7XXA Infection and inflammatory reaction due to other cardiac and vascular devices, implants and grafts, initial encounter; L97.429 Non-pressure chronic ulcer of left heel and midfoot with unspecified severity; L03.115 Cellulitis of right lower limb; E11.621 Type 2 diabetes mellitus with foot ulcer; D63.1 Anemia in chronic kidney disease; R62.7 Adult failure to thrive; Z68.39 Body mass index [BMI] 39.0-39.9, adult